=== PATIENT | female | born 1955 | race Caucasian/White ===

== ENCOUNTER 2016-10-14 11:41 | Inpatient (IN) | payer OTHER, MEDICARE ==
[~2016-10-14] VITALS: Ht 170.2 cm; Wt 93.2 kg
[~2016-10-14 11:41] MED LIST: ERGO1CAP10 PO; FLUT1SPR5 EACH NARE; FOLI1TAB4 PO; LIDO1PAD52 TOPICAL; LORA-392 PO; METF500T4 PO; METO25TA3 PO; MULT1TAB84 PO; PANT20 PO; POTA8CAP PO; RANI150C PO; ZOFR4TAB PO
[2016-10-14 11:42] VITALS: BP 120/59; PULSE 110; RESP 20; TEMP 98.3; O2SAT 100
--- NOTE | 2016-10-14 12:09 | PD ---
Physical Exam Time Seen by Provider: 12:07 Narrative 61yo F c/o vomiting since Friday morning. [place] abd pain. Reports diarrhea. Denies fever. Denies blood in stool or vomit. Patient seen in triage. Awaiting bed placement. VS reviewed. Data Data Last Documented VS Vital Signs Date Time Temp Pulse Resp B/P Pulse Ox O2 Delivery O2 Flow Rate FiO2 10/14/16 11:42 98.3 110 20 120/59 100 Room Air MDM Supervised Visit with JUVENCIO: Doris Mccauley Oct 14, 2016 12:09
--- NOTE | 2016-10-14 12:42 | PD ---
HPI Chief Complaint: GI Complaint Time Seen by Provider: 12:42 Travel History International Travel<30 days: No Contact w/Intl Traveler<30days: No Traveled to known affect area: No History of Present Illness HPI 61-year-old female with history of gastric sleeve in 2011, hereditary kidney disease, and nonalcoholic cirrhosis presents to the emergency department for evaluation nausea, vomiting, and diarrhea for the last 3 days. Patient states she cannot keep anything down. She has had no hematochezia or hematemesis. Denies any significant abdominal pain. Denies any fever but has been chilled. Denies any chest pain or tightness. Does report indigestion. Has no urinary symptoms. Does feel as though she has indigestion. She has no other symptoms to report at this time. PFSH Past Medical History Hx Anticoagulant Therapy: No Arthritis: No Autoimmune Disease: Yes Blood Disorders: No Anxiety: Yes Depression: No Heart Rhythm Problems: Yes (ELEVATED HEART RATE) Cancer: No Cardiovascular Problems: Yes (RAPID PULSE ) High Cholesterol: Yes (CURRENTLY NOT ON MEDS) Chemotherapy: No Chest Pain: Yes Congestive Heart Failure: No Cirrhosis: Yes (on liver transplant list) Cerebrovascular Accident: No Diabetes: Yes Endocrine: Yes Gastrointestinal Disorders: Yes (liver ) GERD: Yes Genitourinary: No Hepatitis: Yes (LIVER STENTS) Hiatal Hernia: No Hypertension: Yes Immune Disorder: Yes (RNA FACTOR GONE) Implanted Vascular Access Dvce: No Musculoskeletal: No Neurologic: No Psychiatric: Yes (ANXIETY) Reproductive: No Respiratory: No Immunizations Current: Yes Radiation Therapy: No Sleep Apnea: Yes (MILD) Thyroid Disease: No Ulcer: Yes (HX) Menopausal: Yes : 3 Para: 3 Past Surgical History Abdominal Surgery: Yes (GASTRIC SLEEVE 2011, UMBILICAL HERNIA) AICD: No Body Medical Devices: GASTRIC SLEEVE, LIVER STENTS? Hysterectomy: No Joint Replacement: No Oral Surgery: Yes (T&A AGE 3) Pacemaker: No Other Surgery: Yes (tonsillectomy, R foot bunion, gastric sleeve, impacted hernia, TIPS ) Social History Alcohol Use: Yes (QUIT 11/2014) Tobacco Use: No Substance Use: No Allergies-Medications (Allergen,Severity, Reaction): Coded Allergies: Latex (Verified Allergy, Severe, Wheezing, 03/12/16) Valium (Verified Allergy, Severe, MAKES PT VERY AGITATED, 03/12/16) Uncoded Allergies: LATEX (Adverse Reaction, Severe, 09/12/11) Reported Meds & Prescriptions Reported Meds & Active Scripts Active Reported Xifaxan (Rifaximin) 550 Mg Tab 550 Mg PO DAILY Januvia (Sitagliptin Phosphate) 100 Mg Tab 100 Mg PO DAILY Multi Vitamin and Mineral (Multiple Vitamins W/ Minerals) 1 Tab Tab 1 Tab PO DAILY Folic Acid 1 Mg Tablet 1 Mg PO DAILY Ergocalciferol 50,000 Unit Cap 50,000 Units PO 3 TIMES A WEEK Spironolactone 25 Mg Tab Unknown Dose PO DAILY Furosemide 20 Mg Tab Unknown Dose PO DAILY Flonase Nasal [place] (Fluticasone Nasal [place]) 50 Mcg/Act [place] 1 Spr EACH NARE DAILY Ranitidine (Ranitidine HCl) 150 Mg Cap 150 Mg PO HS Lidocaine Patch 12 HR (Lidocaine) 5 % Patch 1 Patch TOPICAL DAILY PRN Remove patch after 12 hours Ativan (Lorazepam) 0.5 Mg Tab 0.5 Mg PO Q4H PRN Zofran (Ondansetron HCl) 4 Mg Tab 4 Mg PO Q6HR PRN Potassium Chloride ER (Potassium Chloride) 8 Meq Cap 8 Meq PO DAILY Metoprolol Tartrate 25 Mg Tab 25 Mg PO BID Review of Systems Except as stated in HPI: all other systems reviewed are Neg Physical Exam Narrative GENERAL: Well-nourished female patient, in no acute distress SKIN: Focused skin assessment warm/dry. HEAD: Atraumatic. Normocephalic. EYES: Pupils equal and round. Mild scleral icterus. No injection or drainage. ENT: No nasal bleeding or discharge. Mucous membranes pink and moist. NECK: Trachea midline. No JVD. CARDIOVASCULAR: Tachycardic rate and rhythm. No murmur appreciated. RESPIRATORY: No accessory muscle use. Diminished to auscultation. Breath sounds equal bilaterally. GASTROINTESTINAL: Abdomen soft, distended. Epigastric tenderness to palpation. Mild guarding. No rebound tenderness. MUSCULOSKELETAL: No obvious deformities. No clubbing. No cyanosis. No edema. NEUROLOGICAL: Awake and alert. No obvious cranial nerve deficits. Motor grossly within normal limits. Normal speech. PSYCHIATRIC: Appropriate mood and affect; insight and judgment normal. Data Data Last Documented VS Vital Signs Date Time Temp Pulse Resp B/P Pulse Ox O2 Delivery O2 Flow Rate FiO2 10/14/16 14:29 108 20 131/56 100 Room Air 10/14/16 11:42 98.3 Orders Complete Blood Count With Diff (10/14/16 12:49) Comprehensive Metabolic Panel (10/14/16 12:49) Lipase (10/14/16 12:49) Prothrombin Time / Inr (Pt) (10/14/16 12:49) Act Partial Throm Time (Ptt) (10/14/16 12:49) Urinalysis - C+S If Indicated (10/14/16 12:49) Ct Abd/Pel W Iv Contrast(Rout) (10/14/16 12:49) Iv Access Insert/Monitor (10/14/16 12:49) Ecg Monitoring (10/14/16 12:49) Oximetry (10/14/16 12:49) Ondansetron Inj (Zofran Inj) (10/14/16 13:00) Sodium Chlor 0.9% 1000 Ml Inj (Ns 1000 M (10/14/16 12:49) Sodium Chloride 0.9% Flush (Ns Flush) (10/14/16 13:00) Electrocardiogram (10/14/16 12:49) Abdomen, Upright Only (10/14/16 12:49) Ammonia (10/14/16 12:53) Oral Contrast - Adult (10/14/16 12:56) Ranitidine Liq (Zantac Liq) (10/14/16 13:15) Ondansetron Inj (Zofran Inj) (10/14/16 13:30) Famotidine (Pepcid) (10/14/16 13:30) Diatrizoate Liq ( Gastroview Liq) (10/14/16 13:27) Urine Culture (10/14/16 14:30) Iodixanol 320 Inj (Rad Ct) (Visipaque 32 (10/14/16 15:15) Sodium Chlor 0.9% 1000 Ml Inj (Ns 1000 M (10/14/16 15:30) Labs Laboratory Tests Test 10/14/16 10/14/16 13:15 14:30 White Blood Count 10.5 TH/MM3 Red Blood Count 3.83 MIL/MM3 Hemoglobin 11.9 GM/DL Hematocrit 36.4 % Mean Corpuscular Volume 95.1 FL Mean Corpuscular Hemoglobin 31.0 PG Mean Corpuscular Hemoglobin 32.6 % Concent Red Cell Distribution Width 17.7 % Platelet Count 210 TH/MM3 Mean Platelet Volume 7.9 FL Neutrophils (%) (Auto) 81.3 % Lymphocytes (%) (Auto) 13.1 % Monocytes (%) (Auto) 5.0 % Eosinophils (%) (Auto) 0.1 % Basophils (%) (Auto) 0.5 % Neutrophils # (Auto) 8.5 TH/MM3 Lymphocytes # (Auto) 1.4 TH/MM3 Monocytes # (Auto) 0.5 TH/MM3 Eosinophils # (Auto) 0.0 TH/MM3 Basophils # (Auto) 0.1 TH/MM3 CBC Comment DIFF FINAL Differential Comment Prothrombin Time 13.4 SEC Prothromb Time International 1.2 RATIO Ratio Activated Partial 24.3 SEC Thromboplast Time Sodium Level 134 MEQ/L Potassium Level 4.5 MEQ/L Chloride Level 92 MEQ/L Carbon Dioxide Level 13.7 MEQ/L Anion Gap 28 MEQ/L Blood Urea Nitrogen 24 MG/DL Creatinine 1.57 MG/DL Random Glucose 91 MG/DL Calcium Level 9.5 MG/DL Total Bilirubin 3.8 MG/DL Aspartate Amino Transf 152 U/L (AST/SGOT) Alanine Aminotransferase 56 U/L (ALT/SGPT) Alkaline Phosphatase 188 U/L Ammonia 68 MCMOL/L Total Protein 6.4 GM/DL Albumin 3.4 GM/DL Lipase 4344 U/L Urine Color DARK-YELLOW Urine Turbidity HAZY Urine pH 5.5 Urine Specific [place] 1.019 Urine Protein 30 mg/dL Urine Glucose (UA) TRACE mg/dL Urine Ketones 10 mg/dL Urine Occult Blood SMALL Urine Nitrite NEG Urine Bilirubin SMALL Urine Urobilinogen 2.0 MG/DL Urine Leukocyte Esterase MOD Urine RBC 1 /hpf Urine WBC 18 /hpf Urine Squamous Epithelial 10 /hpf Cells Urine Transitional Epithelial 1 /hpf Cells Urine Bacteria FEW /hpf Urine Hyaline Casts 13 /lpf Urine Mucus FEW /lpf Microscopic Urinalysis Comment CULTURE INDICATED MDM Medical Decision Making Medical Screen Exam Complete: Yes Emergency Medical Condition: Yes Medical Record Reviewed: Yes Differential Diagnosis Gastroenteritis versus gastritis versus pancreatitis versus cholecystitis versus viral syndrome versus electrolyte abnormality Narrative Course 61-year-old female presents to the emergency department for evaluation of nausea , vomiting, diarrhea. Patient has epigastric tenderness to palpation. Patient is ordered Zofran which initially she refuses, requesting Zantac. I explained to the patient the Zantac will not help with her nausea but would help with the sensation of indigestion. She agrees to take the Zofran and is given a dose of Pepcid here in the emergency department. She is also given IV normal saline. Lab work is obtained. CBC is without acute concern. CMP is with BUN 24, creatinine 1.57. AST 152, ALT 56, alkaline phosphatase 158. Ammonia 60. Lipase is 4344. Urinalysis is with 30 proteinuria, 10 ketones, small occult blood, 18 WBC, few bacteria, culture is indicated. I discussed the patient with Dr. Loving who is her primary care provider. Because the patient is [employer], the patient will need to be admitted to [facility]. A call has been placed to them. Diagnosis Primary Impression: Acute pancreatitis Qualified Code: K85.90 - Acute pancreatitis, unspecified complication status, unspecified pancreatitis type Additional Impressions: Nausea & vomiting Qualified Code: R11.2 - Non-intractable vomiting with nausea, unspecified vomiting type Diarrhea Qualified Code: R19.7 - Diarrhea, unspecified type Liver disease, chronic Admitting Information Admitting Physician Requests: Admit Condition: Stable FangAileen rutherford MATI Oct 14, 2016 12:42
[2016-10-14] MEDS ORDERED: SPIR25TA PO (12:43)
[2016-10-14] MEDS ORDERED: FURO20TA PO (12:43)
[2016-10-14 12:46] VITALS: BP 155/63; PULSE 105; RESP 20; O2SAT 100
[2016-10-14] MEDS ORDERED: SODIUM CHLOR 0.9% 1000 ML INJ 1,000 ML IV SCH (12:49)
[2016-10-14] MEDS ORDERED: ERGO1CAP30 PO ×2 (12:57→15:50)
[2016-10-14] MEDS ORDERED: ONDANSETRON HCL 4 MG/2 ML VIAL IVP ONE (13:00)
[2016-10-14] MEDS ORDERED: RANITIDINE HCL SYRUP 150 MG/10 ML UDC PO ONE (13:15)
[2016-10-14] MEDS ORDERED: DIATRIZOATE MEGLUM/DIATRIZOATE SOD 9 ML CUP ONE (13:27)
[2016-10-14] MEDS ORDERED: FAMOTIDINE 20 MG TAB PO ONE (13:30)
[2016-10-14] MEDS ORDERED: ONDANSETRON HCL 4 MG/2 ML VIAL IV PUSH ONE (13:30)
[2016-10-14 13:38] LABS: AUTOMATED NEUTROPHIL # 8.5 TH/MM3 (1.8-7.7); BASOPHIL # 0.1 TH/MM3 (0-0.2); BASOPHIL % 0.5 % (0.0-2.0); EOSINOPHIL % 0.1 % (0.0-4.0); HEMATOCRIT 36.4 % (35.0-46.0); HEMO FLAGS DIFF FINAL; LYMPH % 13.1 % (9.0-44.0); LYMPHOCYTE # 1.4 TH/MM3 (1.0-4.8); MEAN CELL VOLUME 95.1 FL (80.0-100.0); MEAN CORPUSCULAR HGB CONC 32.6 % (32.0-36.0); NEUT % 81.3 % (16.0-70.0); PLATELET COUNT 210 TH/MM3 (150-450); RED BLOOD COUNT 3.83 MIL/MM3 (4.00-5.30); RED CELL DISTRIBUTION WIDTH 17.7 % (11.6-17.2); WHITE BLOOD COUNT 10.5 TH/MM3 (4.0-11.0)
[2016-10-14 13:47] LABS: APTT (PATIENT) 24.3 SEC (24.3-30.1); INTERNATIONAL NORMALIZED RATIO 1.2 RATIO; PROTHROMBIN TIME - PATIENT 13.4 SEC (9.8-11.6)
[2016-10-14 14:00] LABS: ALT (GPT) 56 U/L (10-53); ANION GAP 28 MEQ/L (5-15); AST (GOT) 152 U/L (15-37); BICARBONATE 13.7 MEQ/L (21.0-32.0); BLOOD UREA NITROGEN 24 MG/DL (7-18); CHLORIDE 92 MEQ/L (98-107); POTASSIUM 4.5 MEQ/L (3.5-5.1); SODIUM (NA) 134 MEQ/L (136-145)
--- NOTE | 2016-10-14 14:01 | RADRPT ---
EXAM DATE/TIME: 10/14/2016 13:39 [facility] COMPARISON: No previous studies available for comparison. INDICATIONS : Vomiting since Friday. MEDICAL HISTORY : Gastroesophageal reflux disease. Cirrhosis. Diabetes mellitus type II. Umbilical hernia. SURGICAL HISTORY : Gastric sleeve. TIPS. Liver stents. ENCOUNTER: Initial ACUITY: 3 days PAIN SCORE: 0/10 LOCATION: Bilateral abdomen. FINDINGS: There is no evidence of pneumoperitoneum. A TIPS stent is seen in the right upper quadrant. There is a paucity of intestinal gas with no definite dilated bowel loops. No suspicious calcifications seen. CONCLUSION: No evidence of pneumoperitoneum Jeremy Carter MD on October 14, 2016 at 13:57 Board Certified Radiologist. This report was verified electronically.
[2016-10-14 14:03] LABS: ALKALINE PHOSPHATASE 188 U/L (45-117); TOTAL BILIRUBIN ADULT 3.8 MG/DL (0.2-1.0)
[2016-10-14 14:29] VITALS: BP 131/56; PULSE 108; RESP 20; O2SAT 100
[2016-10-14 15:07] LABS: BACTERIA, URINE FEW /hpf; BLOOD, URINE SMALL (NEG); COMMENT (UR) CULTURE INDICATED; CULTURE IF INDICATED CULTURE INDICATED; GLUCOSE,URINE TRACE mg/dL (NEG); HYALINE CAST, URINE 13 /lpf (RARE); KETONE, URINE 10 mg/dL (NEG); MUCUS URINE FEW /lpf (OCC); NITRITE,URINE NEG (NEG); PH, URINE 5.5 (5.0-8.5); SQUAMOUS EPITHELIAL CELL URINE 10 /hpf (0-5); TRANSITIONAL EPI CELLS, URINE 1 /hpf; URINE COLOR DARK-YELLOW (YELLW/STRAW)
[2016-10-14] MEDS ORDERED: IODIXANOL 320 MG/ML 10 ML VIAL (for Rad CT) IV ONE (15:15)
[2016-10-14] MEDS ORDERED: SODIUM CHLOR 0.9% 1000 ML INJ 1,000 ML IV ONE (15:30)
--- NOTE | 2016-10-14 15:30 | RADRPT ---
EXAM DATE/TIME: 10/14/2016 15:06 [facility] COMPARISON: CT ABDOMEN & PELVIS W/O CONTRAST, August 11, 2015, 21:58. INDICATIONS : Abdomen pain. IV CONTRAST: 50 cc Visipaque (iodixanol) IV ORAL CONTRAST: No oral contrast ingested. RADIATION DOSE: 13.96 CTDIvol (mGy) MEDICAL HISTORY : Cirrhosis. gall stones SURGICAL HISTORY : Hernia ENCOUNTER: Initial ACUITY: 1 day PAIN SCALE: 2/10 LOCATION: Bilateral abdomen. TECHNIQUE: Volumetric scanning of the abdomen and pelvis was performed. Using automated exposure control and ad justment of the mA and/or kV according to patient size, radiation dose was kept as low as reasonably achievable to obtain optimal diagnostic quality images. DICOM format image data is available electro nically for review and comparison. FINDINGS: LOWER LUNGS: The visualized lower lungs are clear. LIVER: Liver demonstrates severe diffuse low-density secondary to steatosis. There are a few calcified stone s in the gallbladder. TIPS extends from the main portal vein to the middle hepatic vein. No focal sarika er lesion is identified. There is no dilation of the biliary tree. SPLEEN: Normal size without lesion. PANCREAS: There is a mild degree of induration of the fat surrounding the pancreas. Main pancreatic duct is nor mal in size and no mass is visualized. KIDNEYS: Normal in size and shape. There is no mass, stone or hydronephrosis. There is a 10 mm low density le demi in the left mid kidney and a 16mm low density lesion in the right mid kidney. Density measuremen ts favor cysts. These are present on the prior examination. ADRENAL GLANDS: Within normal limits. VASCULAR: There is no aortic aneurysm. There is mild atherosclerotic disease. BOWEL/MESENTERY: Small hiatal hernia is present. There is a staple line along the greater curvature of the stomach. Sm all bowel and colon demonstrate no acute finding. There is mild sigmoid diverticulosis. There is no f ree air or free fluid. Appendix is normal. ABDOMINAL WALL: Within normal limits. RETROPERITONEUM: There is no lymphadenopathy. BLADDER: No wall thickening or mass. REPRODUCTIVE: Within normal limits. INGUINAL: There is no lymphadenopathy or hernia. MUSCULOSKELETAL: There are degenerative changes of the lumbar spine consisting primarily of facet arthrosis. There is 6 mm of anterolisthesis of L4 on L5. CONCLUSION: 1. Mild induration of the fat surrounding the pancreas suggesting mild inflammation. This could repre sent an acute pancreatitis. Suggest correlation with the appropriate laboratory values. 2. Severe hepatic steatosis. TIPS device is present. 3. Cholelithiasis. Jeremy Martin MD on October 14, 2016 at 15:22 Board Certified Radiologist. This report was verified electronically.
[2016-10-14] MEDS ORDERED: MULT-142 PO (15:50)
[2016-10-14] MEDS ORDERED: FOLI1TAB6 PO (15:50)
[2016-10-14] MEDS ORDERED: XIFA550T4 PO (15:52)
[2016-10-14] MEDS ORDERED: SITA1TAB2 PO (15:52)
--- NOTE | 2016-10-14 17:55 | HHI.HP ---
[facility] Tate Loving MD Admission Diagnosis acute pancreatitis; transaminitis; nausea, vomiting, diarrhea Diagnoses: Chief Complaint: Persistent nausea Travel History International Travel<30 Days: No Contact w/Intl Traveler <30 Da: No Traveled to Known Affected Are: No Sepsis Criteria SIRS Criteria (2 or more): Heart rate over 90, RR > 20 or PaCO2 < 32, WBC > 25357, < 4000 or > 10% bands Criteria Outcome: Meets SIRS criteria History of Present Illness Patient is a very pleasant 61-year-old female with history of liver cirrhosis who about a week prior to admission had a drink of vodka. 3-4 days prior to admission patient started complaining of increased nausea and vomiting unable to hold down anything associated with loose stools around 3-4 times per day. Persistence prompted consult to ER and on evaluation was noted to have an elevated lipase and patient was admitted for further evaluation and management. Patient with history of SEAY ff by Dr. Germain at one point was on the transplant list but was taken off as she had improved a lot. States history of anxiety disorder and depression. denies any suicidal ideations Review of Systems Constitutional: COMPLAINS OF: Diaphoretic episodes Endocrine: DENIES: Abnorml menstrual pattern, Heat/cold intolerance, Polydipsia , Polyuria, Polyphagia Eyes: DENIES: Blurred vision, Diplopia, Eye inflammation, Eye pain, Vision loss , Photosensitivity, Double Vision Ears, nose, mouth, throat: DENIES: Tinnitus, Hearing loss, Vertigo, Nasal discharge, Oral lesions, Throat pain, Hoarseness, Ear Pain, Running Nose, Epistaxis, Sinus Pain, Toothache, Odynophagia Respiratory: DENIES: Apneas, Cough, Snoring, Wheezing, Hemoptysis, Sputum production, Shortness of breath Cardiovascular: DENIES: Chest pain, Palpitations, Syncope, Dyspnea on Exertion , PND, Lower Extremity Edema, Orthopnea, Claudication Gastrointestinal: COMPLAINS OF: Abdominal pain Genitourinary: DENIES: Abnormal vaginal bleeding, Dysmenorrhea, Dyspareunia, Sexual dysfunction, Urinary frequency, Urinary incontinence, Urgency, Hematuria , Dysuria, Nocturia, Vaginal discharge Musculoskeletal: DENIES: Joint pain, Muscle aches, Stiffness, Joint Swelling, Back pain, Neck pain Integumentary: DENIES: Abnormal pigmentation, Pruritus, Rash, Nail changes, Breast masses, Breast skin changes, Nipple discharge Hematologic/lymphatic: DENIES: Bruising, Lymphadenopathy Immunologic/allergic: DENIES: Eczema, Urticaria Neurologic: DENIES: Abnormal gait, Headache, Localized weakness, Paresthesias, Seizures, Speech Problems, Tremor, Poor Balance Psychiatric: DENIES: Anxiety, Confusion, Mood changes, Depression, Hallucinations, Agitation, Suicidal Ideation, Homicidal Ideation, Delusions Past Family Social History Past Medical History History of Type 2 diabetes History of tachycardia Past Surgical History [place]astric [place] FollowedbyaGIspecialist- Dr. Germain history of repeated paracentesis in the past - DC sice TIPs done Reported Medications Zofran 4 mg by mouth every 6 Rifaximin 550 mg daily Lidoderm patch every 12 Ativan 0.5 mg every 6 when necessary Vitamin C, vitamin D Lasix 20 mg daily SpironolaCTONE 25 mg daily Allergies: Coded Allergies: Latex (Verified Allergy, Severe, Wheezing, 03/12/16) Valium (Verified Allergy, Severe, MAKES PT VERY AGITATED, 03/12/16) Uncoded Allergies: LATEX (Adverse Reaction, Severe, 09/12/11) Family History Noncontributory Social History Gastric sleeve surgery next line umbilical hernia surgery Tip surgery last year at [facility] per patient within a year Physical Exam Vital Signs Vital Signs Date Time Temp Pulse Resp B/P Pulse Ox O2 Delivery O2 Flow Rate FiO2 10/14/16 14:29 108 20 131/56 100 Room Air 10/14/16 12:46 105 20 155/63 100 Room Air 10/14/16 11:42 98.3 110 20 120/59 100 Room Air Physical Exam GENERAL: Awake alert in no apparent distress. SKIN: No rashes, ecchymoses or lesions. Cool and dry. HEAD: Atraumatic. Normocephalic. No temporal or scalp tenderness. EYES: Pupils equal round and reactive. Extraocular motions intact. No scleral icterus. No injection or drainage. ENT: Nose without bleeding, purulent drainage or septal hematoma. Throat without erythema, tonsillar hypertrophy or exudate. Uvula midline. Airway patent. NECK: Trachea midline. No JVD or lymphadenopathy. Supple, nontender, no meningeal signs. CARDIOVASCULAR: Heart rate 10 2/m, regular rhythm without murmurs, gallops, or rubs. RESPIRATORY: Clear to auscultation. Breath sounds equal bilaterally. No wheezes , rales, or rhonchi. GASTROINTESTINAL: Abdomen soft, positive right upper quadrant and epigastric tenderness, liver edge palpable 2 cm below right upper quadrant MUSCULOSKELETAL: Extremities without clubbing, cyanosis, or edema. No joint tenderness, effusion, or edema noted. No calf tenderness. Negative Homans sign bilaterally. NEUROLOGICAL: Awake and alert. Cranial nerves II through XII intact. Motor and sensory grossly within normal limits. Five out of 5 muscle strength in all muscle groups. Normal speech. Laboratory Laboratory Tests Test 10/14/16 10/14/16 13:15 14:30 White Blood Count 10.5 Red Blood Count 3.83 Hemoglobin 11.9 Hematocrit 36.4 Mean Corpuscular Volume 95.1 Mean Corpuscular Hemoglobin 31.0 Mean Corpuscular Hemoglobin 32.6 Concent Red Cell Distribution Width 17.7 Platelet Count 210 Mean Platelet Volume 7.9 Neutrophils (%) (Auto) 81.3 Lymphocytes (%) (Auto) 13.1 Monocytes (%) (Auto) 5.0 Eosinophils (%) (Auto) 0.1 Basophils (%) (Auto) 0.5 Neutrophils # (Auto) 8.5 Lymphocytes # (Auto) 1.4 Monocytes # (Auto) 0.5 Eosinophils # (Auto) 0.0 Basophils # (Auto) 0.1 CBC Comment DIFF FINAL Differential Comment Prothrombin Time 13.4 Prothromb Time International 1.2 Ratio Activated Partial 24.3 Thromboplast Time Sodium Level 134 Potassium Level 4.5 Chloride Level 92 Carbon Dioxide Level 13.7 Anion Gap 28 Blood Urea Nitrogen 24 Creatinine 1.57 Random Glucose 91 Calcium Level 9.5 Total Bilirubin 3.8 Aspartate Amino Transf 152 (AST/SGOT) Alanine Aminotransferase 56 (ALT/SGPT) Alkaline Phosphatase 188 Ammonia 68 Total Protein 6.4 Albumin 3.4 Lipase 4344 Urine Color DARK-YELLOW Urine Turbidity HAZY Urine pH 5.5 Urine Specific [place] 1.019 Urine Protein 30 Urine Glucose (UA) TRACE Urine Ketones 10 Urine Occult Blood SMALL Urine Nitrite NEG Urine Bilirubin SMALL Urine Urobilinogen 2.0 Urine Leukocyte Esterase MOD Urine RBC 1 Urine WBC 18 Urine Squamous Epithelial 10 Cells Urine Transitional Epithelial 1 Cells Urine Bacteria FEW Urine Hyaline Casts 13 Urine Mucus FEW Microscopic Urinalysis Comment CULTURE INDICATED Date/Time Procedure Status Source Growth 10/14/16 14:30 Urine Culture Received Urine Random Urine Pending Result Diagram: 10/14/16 1315 10/14/16 1315 Imaging Last Impressions Abdomen/Pelvis CT 10/14/16 1249 Signed Impressions: Service Date/Time: Friday, October 14, 2016 15:06 - CONCLUSION: 1. Mild induration of the fat surrounding the pancreas suggesting mild inflammation. This could represent an acute pancreatitis. Suggest correlation with the appropriate laboratory values. 2. Severe hepatic steatosis. TIPS device is present. 3. Cholelithiasis. Jeremy Martin MD Abdomen X-Ray 10/14/16 1249 Signed Impressions: Service Date/Time: Friday, October 14, 2016 13:39 - CONCLUSION: No evidence of pneumoperitoneum Jeremy Carter MD Septic Shock Reassessment Heart: Regular rate and rhythm Lungs: Clear Skin: Warm Peripheral Pulses: Bounding Right Radial Bounding Left Radial Bounding Right Popliteal Bounding Left Popliteal Bounding Right Dorsalis Pedis Bounding Left Dorsalis Pedis Bounding Right Posterior Tibial Bounding Left Posterior Tibial Capillary Refill: Brisk Assessment and Plan Assessment and Plan 58-year-old female presenting with nausea and vomiting persistent on exam with Acute pancreatitis. - Likely alcohol related Patient with history of alcoholism. Patient states had been thin but he did she think she did admit that she had 2-3 glasses of vodka 5 days ago. Nothing by mouth with sips of water Zofran 4 mg IV every 6 when necessary. Protonix IV will monitor for DTs- I suspect she drinks more than she states History of tachycardia- questionably idiopathic. ? anxiety disorder Continue on metoprolol home dose. History of liver cirrhosis- status post TIPS procedure. In the past had required periodic paracentesis. Not in any form of encephalopathy. Chronic kidney insufficiency creatinine near baseline. Will hold off on diuretics. Gentle hydration. Urinary tract infection positive pyuria. [employer] SU[employer]OR was sent. Start patient on Levaquin IV daily teds Code Status Full Discussed Condition With Patient Physician Certification 2 Midnight Certification Type: Admission for Inpatient Services Order for Inpatient Services The services are ordered in accordance with Medicare regulations or non- Medicare payer requirements, as applicable. In the case of services not specified as inpatient-only, they are appropriately provided as inpatient services in accordance with the 2-midnight benchmark. Estimated LOS (days): 3 days is the estimated time the patient will need to remain in the hospital, assuming treatment plan goals are met and no additional complications. Post-Hospital Plan: Not yet determined Carri Cancino MD Oct 14, 2016 17:55
[2016-10-14] MEDS ORDERED: ONDANSETRON HCL 4 MG/2 ML VIAL IV PUSH PRN (18:00)
[2016-10-14] MEDS ORDERED: LEVOFLOXACIN 500 MG PREMIX INJ 100 ML IV SCH (18:00)
[2016-10-14 18:32] LABS: AMPHETAMINE, URINE NEG (NEG); BARBITURATES, URINE NEG (NEG); COCAINE, URINE NEG (NEG)
[2016-10-14 18:42] VITALS: BP 122/58; PULSE 106; RESP 18; TEMP 96.2; O2SAT 100
[2016-10-14] MEDS ORDERED: REMOVE OLD LIDOCAINE PATCH T-DERMAL PRN (19:15)
[2016-10-14 20:00] VITALS: BP 131/58; PULSE 96; RESP 19; TEMP 97.3; O2SAT 94
[2016-10-14] MEDS ORDERED: LEVOFLOXACIN 500 MG PREMIX INJ 100 ML IV ONE (20:00)
[2016-10-14] MEDS: METOPROLOL TARTRATE 25 MG TAB PO SCH (20:56)
[2016-10-14] MEDS: PANTOPRAZOLE SODIUM 40 MG VIAL IV PUSH SCH (20:56)
[2016-10-14] MEDS: HYDROmorphone HCL PF 1 MG/ML VIAL IV PUSH PRN (21:03)
[2016-10-14] MEDS: DEXT 5%-NACL 0.9% 1000 ML INJ 1,000 ML IV SCH (21:06)
[2016-10-14] MEDS: LIDOCAINE HCL 5% PATCH T-DERMAL PRN (21:30)
[2016-10-15] VITALS: BP_SYST 126; BP_SYST 138; BP_DIAS 61; BP_DIAS 92; PULSE 73; PULSE 76; RESP 19; RESP 20; TEMP 98.3; O2SAT 98
[2016-10-15] MEDS: HYDROmorphone HCL PF 1 MG/ML VIAL IV PUSH PRN ×4 (01:23→21:19)
[2016-10-15] MEDS: METOCLOPRAMIDE HCL 10 MG/2 ML VIAL IV PUSH PRN ×2 (02:05→10:20)
[2016-10-15 08:00] VITALS: BP 123/55; PULSE 80; RESP 18; TEMP 96; O2SAT 94
--- NOTE | 2016-10-15 08:43 | HHI.PR ---
Subjective Remarks feels better - but did not get sleep last night feels better - appears more tremulous this am - I thinks she drinks more than she states- but got a little up set when ask ? denial states anxiety disorder on prn Ativan diarrhea - "stopped" Objective Vitals Vital Signs Date Time Temp Pulse Resp B/P Pulse Ox O2 Delivery O2 Flow Rate FiO2 10/15/16 00:00 98.3 73 19 126/61 98 10/14/16 20:00 97.3 96 19 131/58 94 10/14/16 18:42 96.2 106 18 122/58 100 10/14/16 14:29 108 20 131/56 100 Room Air 10/14/16 12:46 105 20 155/63 100 Room Air 10/14/16 11:42 98.3 110 20 120/59 100 Room Air I/O 10/14/16 10/14/16 10/14/16 10/15/16 10/15/16 10/15/16 07:00 15:00 23:00 07:00 15:00 23:00 Intake Total 194 ml 839 ml Output Total 300 ml Balance 194 ml 539 ml Intake Oral 0 ml 0 ml IV Total 194 ml 839 ml Output Urine Total 300 ml # Voids 1 3 2 # Bowel Movements 1 0 Result Diagram: 10/14/16 1315 10/14/16 1315 Imaging Last Impressions Abdomen/Pelvis CT 10/14/16 1249 Signed Impressions: Service Date/Time: Friday, October 14, 2016 15:06 - CONCLUSION: 1. Mild induration of the fat surrounding the pancreas suggesting mild inflammation. This could represent an acute pancreatitis. Suggest correlation with the appropriate laboratory values. 2. Severe hepatic steatosis. TIPS device is present. 3. Cholelithiasis. Jeremy Martin MD Abdomen X-Ray 10/14/16 1249 Signed Impressions: Service Date/Time: Friday, October 14, 2016 13:39 - CONCLUSION: No evidence of pneumoperitoneum Jeremy Carter MD Objective Remarks awake and alert, appears more anxious and tremulous anicteric no nuchal rigidity decreased breath sounds, no rales or wheezes abdomen- soft, + tenderness on epigastric area, extremities no edema A/P Assessment and Plan 58-year-old female presenting with nausea and vomiting persistent on exam with Acute pancreatitis. - Likely alcohol related Patient with history of alcoholism. Patient states had been thin but he did she think she did admit that she had 2-3 glasses of vodka 5 days ago. Nothing by mouth with sips of water Zofran 4 mg IV every 6 when necessary. Protonix IV repeat labs this am GI consult - known to Dr. Germain ETOH withdrawal start on CIWA protocol states she takes Ativan prn for anxiety. On record- - with Valium- gives her the opposite effect- makes her more agitated per patient History of tachycardia- questionably idiopathic. Continue on metoprolol home dose. History of liver cirrhosis- status post TIPS procedure. In the past had required periodic paracentesis. Not in any form of encephalopathy.. monitor Chronic kidney insufficiency creatinine near baseline. Will hold off on diuretics. Gentle hydration. repeat labs Urinary tract infection positive pyuria. 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 Start patient on Levaquin IV daily Carri Perez MD Oct 15, 2016 08:43
[2016-10-15 08:58] LABS: ALKALINE PHOSPHATASE 131 U/L (45-117); ALT (GPT) 48 U/L (10-53); ANION GAP 12 MEQ/L (5-15); AST (GOT) 109 U/L (15-37); BICARBONATE 25.9 MEQ/L (21.0-32.0); BLOOD UREA NITROGEN 30 MG/DL (7-18); CHLORIDE 99 MEQ/L (98-107); GLOMERULAR FILTRATION RATE 34 ML/MIN (>89); POTASSIUM 3.7 MEQ/L (3.5-5.1); SODIUM (NA) 137 MEQ/L (136-145); TOTAL BILIRUBIN ADULT 2.9 MG/DL (0.2-1.0)
[2016-10-15] MEDS: FOLIC ACID 1 MG TAB PO SCH (09:06)
[2016-10-15] MEDS: METOPROLOL TARTRATE 25 MG TAB PO SCH ×2 (09:06→21:18)
[2016-10-15] MEDS: ERGOCALCIFEROL (VIT D2) 50,000 UNIT CAP PO SCH (09:06)
[2016-10-15] MEDS ORDERED: LORazepam 1 MG TAB PO PRN (09:15)
[2016-10-15] MEDS ORDERED: LORazepam 2 MG/ML VIAL IV PUSH PRN ×4 (09:15)
[2016-10-15] MEDS ORDERED: LORazepam 2 MG TAB PO PRN (09:15)
[2016-10-15] MEDS ORDERED: FLUMAZENIL 0.5 MG/5 ML VIAL IV PUSH PRN (09:15)
[2016-10-15] MEDS: LIDOCAINE HCL 5% PATCH T-DERMAL PRN (09:18)
[2016-10-15 12:00] VITALS: BP 98/57; PULSE 78; RESP 17; TEMP 97; O2SAT 98
[2016-10-15] MEDS: DEXT 5%-NACL 0.9% 1000 ML INJ 1,000 ML IV SCH ×2 (13:07→23:17)
--- NOTE | 2016-10-15 15:19 | PD.CONS ---
HPI History of Present Illness This is a 61 year old lady with hx SEAY, TIPS, who presented to ER with n/v. Onset was 4 days ago, constant n/v and weakness. She was found to have elevated lipase 5530. She had been fasting for an abd US and had her first meal the the n /v started a couple bites into a sandwich. No abd pain. She did have diarrhea for a couple days but that resolved. No prior hx pancreatitis. She was pursuing liver transplatn at [facility] but improved with lifestyle mods to the point she was removed from the program, says her MELD went from 18 to 7. Currently her vomiting is improved some since admission but she still is nauseous. She sees DR Germain, has had extensive w/u. She denies ETOH in the last year but on admission her blood ETOH was 48. PFSH Past Medical History SEAY stage 4 (2014). History of Type 2 diabetes History of tachycardia Past Surgical History [place] FollowedbyaGIspecialist- Dr. Germain history of repeated paracentesis in the past - DC sice TIPs done Coded Allergies: Latex (Verified Allergy, Severe, Wheezing, 03/12/16) Valium (Verified Allergy, Severe, MAKES PT VERY AGITATED, 03/12/16) Uncoded Allergies: LATEX (Adverse Reaction, Severe, 09/12/11) Family History recurrent pancreatitis - mother Social History Gastric sleeve surgery next line umbilical hernia surgery Tip surgery last year at [facility] per patient within a year Review of Systems Constitutional: DENIES: Fever Eyes: DENIES: Blurred vision Ears, nose, mouth, throat: DENIES: Hearing loss Respiratory: DENIES: Cough Cardiovascular: DENIES: Chest pain Gastrointestinal: COMPLAINS OF: Nausea, Vomiting, DENIES: Abdominal pain, Black stools, Bloody stools, Constipation, Diarrhea, Swelling of Abdomen, Hematemesis Genitourinary: DENIES: Hematuria Musculoskeletal: DENIES: Muscle aches Integumentary: DENIES: Pruritus, Jaundice Hematologic/lymphatic: DENIES: Bruising Neurologic: DENIES: Headache Psychiatric: DENIES: Confusion GI Exam Vitals I&O Vital Signs Date Time Temp Pulse Resp B/P Pulse Ox O2 Delivery O2 Flow Rate FiO2 10/15/16 12:00 97.0 78 17 98/57 98 10/15/16 08:00 96.0 80 18 123/55 94 10/15/16 00:00 98.3 73 19 126/61 98 10/14/16 20:00 97.3 96 19 131/58 94 10/14/16 18:42 96.2 106 18 122/58 100 I/O 10/14/16 10/14/16 10/14/16 10/15/16 10/15/16 10/15/16 07:00 15:00 23:00 07:00 15:00 23:00 Intake Total 194 ml 839 ml 0 ml Output Total 300 ml Balance 194 ml 539 ml 0 ml Intake Oral 0 ml 0 ml 0 ml IV Total 194 ml 839 ml Output Urine Total 300 ml # Voids 1 3 2 5 # Bowel Movements 1 0 0 Imaging Last Impressions Abdomen/Pelvis CT 10/14/16 1249 Signed Impressions: Service Date/Time: Friday, October 14, 2016 15:06 - CONCLUSION: 1. Mild induration of the fat surrounding the pancreas suggesting mild inflammation. This could represent an acute pancreatitis. Suggest correlation with the appropriate laboratory values. 2. Severe hepatic steatosis. TIPS device is present. 3. Cholelithiasis. Jeremy Martin MD Abdomen X-Ray 10/14/16 1249 Signed Impressions: Service Date/Time: Friday, October 14, 2016 13:39 - CONCLUSION: No evidence of pneumoperitoneum Jeremy Carter MD Laboratory Test 10/15/16 08:09 Sodium Level 137 MEQ/L Potassium Level 3.7 MEQ/L Chloride Level 99 MEQ/L Carbon Dioxide Level 25.9 MEQ/L Anion Gap 12 MEQ/L Blood Urea Nitrogen 30 MG/DL Creatinine 1.55 MG/DL Estimat Glomerular Filtration 34 ML/MIN Rate Random Glucose 137 MG/DL Calcium Level 8.0 MG/DL Total Bilirubin 2.9 MG/DL Aspartate Amino Transf 109 U/L (AST/SGOT) Alanine Aminotransferase 48 U/L (ALT/SGPT) Alkaline Phosphatase 131 U/L Total Protein 5.1 GM/DL Albumin 2.7 GM/DL Lipase 5530 U/L Date/Time Procedure Status Source Growth 10/14/16 14:30 Urine Culture - Final Complete Urine Random Urine 50-100,000 CFU/ML MIXED WENDI... Physical Examination HEENT: PERRL; normocephalic; atraumatic; no jaundice. CHEST: CTA CARDIAC: RRR ABDOMEN: Soft, nondistended, nontender; no hepatosplenomegaly; bowel sounds are present in all four quadrants. EXTREMITIES: No clubbing, cyanosis, edema right leg > left leg SKIN: Normal; no rash; no jaundice. DOUGH SCALER AND MIXER: No focal deficits; alert and oriented times three. Assessment and Plan Plan ASSESSMENT - acute pancreatitis - lipase on admission 4344, up to 5530. CT 10-14-16 --> . Mild induration of the fat surrounding the pancreas suggesting mild inflammation. This could represent an acute pancreatitis. Suggest correlation with the appropriate laboratory values. 2. Severe hepatic steatosis. TIPS device is present. 3. Cholelithiasis. Pt denies drinking in last year, prior was heavy drinker, but her blood ETOH on admission was 48. - elevated LFTs - - SEAY - ?cirrhosis. MELD 17. CT as above. s/p TIPS. EGD 2015 showed gastritis , duodenitis, no varices. PLAN - MRCP - IGG4 - monitor LFTs - supportive care - IVF - further recommendations to follow This pt seen by myself and Dr Villaseñor and this note is written on his behalf Aishwarya Huynh Oct 15, 2016 15:19
[2016-10-15 16:00] VITALS: BP 112/57; PULSE 78; RESP 18; TEMP 97.9; O2SAT 96
--- NOTE | 2016-10-15 17:10 | EKG ---
Date Performed: 10/14/2016 Time Performed: 12:58:19 PTAGE: 61 years EKG: SINUS TACHYCARDIA PREVIOUS TRACING 12/12/2015 08.16.46 DOCTOR: Og Lai Interpretating Date/Time 10/15/2016 17:09:14
[2016-10-15 20:00] VITALS: BP 113/55; PULSE 80; RESP 20; TEMP 97.9; O2SAT 98
[2016-10-15] MEDS: LEVOFLOXACIN/DEXTROSE 250 MG/50 ML IV SCH (21:18)
[2016-10-15] MEDS: RIFAXIMIN 550 MG TAB PO SCH (21:18)
[2016-10-15] MEDS: PANTOPRAZOLE SODIUM 40 MG VIAL IV PUSH SCH (21:25)
[2016-10-16] VITALS: BP 101/53; PULSE 71; RESP 20; TEMP 97.3; O2SAT 96
[2016-10-16] MEDS: HYDROmorphone HCL PF 1 MG/ML VIAL IV PUSH PRN (05:23)
[2016-10-16] MEDS: METOCLOPRAMIDE HCL 10 MG/2 ML VIAL IV PUSH PRN (05:24)
[2016-10-16 06:35] LABS: INDIRECT BILIRUBIN 0.6 MG/DL (0.0-0.8); TOTAL BILIRUBIN ADULT 2.3 MG/DL (0.2-1.0)
[2016-10-16 08:00] VITALS: BP 118/56; PULSE 79; RESP 17; TEMP 96.4; O2SAT 97
[2016-10-16] MEDS: ERGOCALCIFEROL (VIT D2) 50,000 UNIT CAP PO SCH (08:06)
[2016-10-16] MEDS: METOPROLOL TARTRATE 25 MG TAB PO SCH ×2 (08:07→20:12)
[2016-10-16] MEDS: RIFAXIMIN 550 MG TAB PO SCH ×2 (08:07→20:12)
[2016-10-16] MEDS: FOLIC ACID 1 MG TAB PO SCH (08:07)
[2016-10-16] MEDS: DEXT 5%-NACL 0.9% 1000 ML INJ 1,000 ML IV SCH ×2 (08:14→17:26)
--- NOTE | 2016-10-16 08:33 | HHI.PR ---
Subjective Remarks patient appears more calm, less tremulous occasional nausea, no vomiting still with epigastric discomfort no diarrhea- "stopped" Objective Vitals Vital Signs Date Time Temp Pulse Resp B/P Pulse Ox O2 Delivery O2 Flow Rate FiO2 10/16/16 00:00 97.3 71 20 101/53 96 10/15/16 20:00 97.9 80 20 113/55 98 10/15/16 16:00 97.9 78 18 112/57 96 10/15/16 12:00 97.0 78 17 98/57 98 I/O 10/15/16 10/15/16 10/15/16 10/16/16 10/16/16 10/16/16 06:59 14:59 22:59 06:59 14:59 22:59 Intake Total 839 ml 0 ml 598 ml 688 ml Output Total 300 ml Balance 539 ml 0 ml 598 ml 688 ml Intake Oral 0 ml 0 ml 0 ml 0 ml IV Total 839 ml 598 ml 688 ml Output Urine Total 300 ml # Voids 2 5 2 3 # Bowel Movements 0 0 0 0 Result Diagram: 10/14/16 1315 10/15/16 0809 Imaging Last Impressions Abdomen/Pelvis CT 10/14/16 1249 Signed Impressions: Service Date/Time: Friday, October 14, 2016 15:06 - CONCLUSION: 1. Mild induration of the fat surrounding the pancreas suggesting mild inflammation. This could represent an acute pancreatitis. Suggest correlation with the appropriate laboratory values. 2. Severe hepatic steatosis. TIPS device is present. 3. Cholelithiasis. Jeremy Martin MD Abdomen X-Ray 10/14/16 1249 Signed Impressions: Service Date/Time: Friday, October 14, 2016 13:39 - CONCLUSION: No evidence of pneumoperitoneum Jeremy Carter MD Objective Remarks awake and alert, calmer, less tremulous, anicteric no nuchal rigidity decreased breath sounds, no rales or wheezes abdomen- soft, + mild tenderness on deep palpation fo epigastric area, extremities no edema A/P Assessment and Plan 58-year-old female presenting with nausea and vomiting persistent on exam with Acute pancreatitis. - Likely alcohol related Patient with history of alcoholism. Patient states had been thin but he did she think she did admit that she had 2-3 glasses of vodka 5 days ago. Nothing by mouth with sips of water Zofran 4 mg IV every 6 when necessary. Protonix IV GI consulted - for MRCP recheck lipase level ETOH withdrawal start on CIWA protocol states she takes Ativan prn for anxiety. On record- - with Valium- gives her the opposite effect- makes her more agitated per patient History of tachycardia- questionably idiopathic.- better controlled Continue on metoprolol home dose. History of liver cirrhosis- status post TIPS procedure. In the past had required periodic paracentesis. Not in any form of encephalopathy.. monitor Chronic kidney insufficiency creatinine near baseline. Will hold off on diuretics. Gentle hydration. ff labs- BMP Urinary tract infection - positive pyuria. on Levaquin IV daily teds/patient up and ambulating Carri Cancino MD Oct 16, 2016 08:33
[2016-10-16] MEDS ORDERED: LORazepam 2 MG/ML VIAL IV PUSH ONE (08:45)
[2016-10-16] MEDS: LIDOCAINE HCL 5% PATCH T-DERMAL PRN (09:05)
[2016-10-16 12:00] VITALS: BP 123/58; PULSE 73; RESP 16; TEMP 96.5; O2SAT 100
[2016-10-16 16:00] VITALS: BP 131/64; PULSE 75; RESP 16; TEMP 98.1; O2SAT 99
[2016-10-16 20:00] VITALS: BP 131/60; PULSE 81; RESP 20; TEMP 98.6; O2SAT 99
[2016-10-16] MEDS: LEVOFLOXACIN/DEXTROSE 250 MG/50 ML IV SCH (20:12)
[2016-10-16] MEDS: PANTOPRAZOLE SODIUM 40 MG VIAL IV PUSH SCH (20:13)
--- NOTE | 2016-10-16 21:45 | RADRPT ---
EXAM DATE/TIME: 10/16/2016 20:50 [facility] COMPARISON: US ABDOMEN - COMPLETE, December 01, 2015, 9:57. CT ABDOMEN & PELVIS W CONTRAST, October 14, 2016, 15:06. INDICATIONS : Abdominal pain. Cirrhosis and cholelithiasis. MEDICAL HISTORY : Cirrhosis Diabetes mellitus type 2. SURGICAL HISTORY : Umbilical hernia repair. TIPS procedure. Gastric sleeve. ENCOUNTER: Subsequent ACUITY: 2 day PAIN SCORE: 0/10 LOCATION: abdomen TECHNIQUE: Multiplanar, multisequence magnetic resonance imaging of the abdomen was performed. High-resolution 3D dataset was utilized to reconstruct maximum-intensity projection (MIP) images. FINDINGS: INTRAHEPATIC BILE DUCTS: Within normal limits. No significant anatomical variant is present. A TIPS device is noted extending from the main portal vein to the middle hepatic vein. EXTRAHEPATIC BILE DUCTS: The common bile duct measures 5 mm No stone or filling defect is identified. GALLBLADDER: No stones, wall thickening, or pericholecystic fluid. The gallbladder is contracted in appearance. LIVER: Normal size and signal intensity. No concerning liver lesion is identified on this non-contrast exam. There is diffuse hepatic steatosis. PANCREAS: The main pancreatic duct is normal in size. There is no significant anatomical variant. Signal inte nsity is within normal limits. No mass is visualized on this non-contrast exam. OTHER: The remaining visualized structures demonstrate no acute abnormality on this non-contrast exam. There are small cysts in the right kidney. A small hiatal hernia is noted. CONCLUSION: 1. The gallbladder is small size with no distinct gallstones identified. 2. Hepatic steatosis with TIPS catheter in place. 3. No evidence of biliary obstruction. Kota Rushing MD on October 16, 2016 at 21:37 Board Certified Radiologist. This report was verified electronically.
[2016-10-17] VITALS: BP 106/52; PULSE 88; RESP 20; TEMP 98.8; O2SAT 97
[2016-10-17] MEDS: DEXT 5%-NACL 0.9% 1000 ML INJ 1,000 ML IV SCH (05:00)
[2016-10-17 06:59] LABS: ALKALINE PHOSPHATASE 124 U/L (45-117); ALT (GPT) 55 U/L (10-53); ANION GAP 8 MEQ/L (5-15); AST (GOT) 133 U/L (15-37); BICARBONATE 26.8 MEQ/L (21.0-32.0); BLOOD UREA NITROGEN 16 MG/DL (7-18); CHLORIDE 105 MEQ/L (98-107); GLOMERULAR FILTRATION RATE 58 ML/MIN (>89); POTASSIUM 3.2 MEQ/L (3.5-5.1); SODIUM (NA) 140 MEQ/L (136-145); TOTAL BILIRUBIN ADULT 2.7 MG/DL (0.2-1.0)
[2016-10-17 08:00] VITALS: BP 122/62; PULSE 81; RESP 16; TEMP 96.9; O2SAT 98
[2016-10-17] MEDS: FOLIC ACID 1 MG TAB PO SCH (09:51)
[2016-10-17] MEDS: ERGOCALCIFEROL (VIT D2) 50,000 UNIT CAP PO SCH (09:51)
[2016-10-17] MEDS: RIFAXIMIN 550 MG TAB PO SCH ×2 (09:51→21:34)
[2016-10-17] MEDS: METOPROLOL TARTRATE 25 MG TAB PO SCH ×2 (09:51→21:34)
[2016-10-17] MEDS: METOCLOPRAMIDE HCL 10 MG/2 ML VIAL IV PUSH PRN ×2 (10:47→21:39)
[2016-10-17] MEDS ORDERED: POTASSIUM CHLORIDE 25 MEQ EFFERVESCENT TAB PO ONE (11:00)
--- NOTE | 2016-10-17 11:00 | HHI.PR ---
Subjective Remarks no further diarrhea very hungry- requesting to eat no abdominal pain, nausea or vomiting Objective Vitals Vital Signs Date Time Temp Pulse Resp B/P Pulse Ox O2 Delivery O2 Flow Rate FiO2 10/17/16 08:00 96.9 81 16 122/62 98 10/17/16 00:00 98.8 88 20 106/52 97 10/16/16 20:00 98.6 81 20 131/60 99 10/16/16 16:00 98.1 75 16 131/64 99 10/16/16 12:00 96.5 73 16 123/58 100 I/O 10/16/16 10/16/16 10/16/16 10/17/16 10/17/16 10/17/16 07:00 15:00 23:00 07:00 15:00 23:00 Intake Total 688 ml 867 ml 0 ml 1739 ml Balance 688 ml 867 ml 0 ml 1739 ml Intake Oral 0 ml 0 ml 0 ml 0 ml IV Total 688 ml 867 ml 1739 ml # Voids 3 7 6 2 # Bowel Movements 0 0 1 0 Result Diagram: 10/14/16 1315 10/17/16 0608 Imaging Last Impressions Cholangiopancreatography MRI 10/16/16 0000 Signed Impressions: Service Date/Time: Sunday, October 16, 2016 20:50 - CONCLUSION: 1. The gallbladder is small size with no distinct gallstones identified. 2. Hepatic steatosis with TIPS catheter in place. 3. No evidence of biliary obstruction. Kota Rushing MD Abdomen/Pelvis CT 10/14/16 1249 Signed Impressions: Service Date/Time: Friday, October 14, 2016 15:06 - CONCLUSION: 1. Mild induration of the fat surrounding the pancreas suggesting mild inflammation. This could represent an acute pancreatitis. Suggest correlation with the appropriate laboratory values. 2. Severe hepatic steatosis. TIPS device is present. 3. Cholelithiasis. Jeremy Martin MD Abdomen X-Ray 10/14/161248 Signed Impressions: Service Date/Time: Friday, October 14, 2016 13:39 - CONCLUSION: No evidence of pneumoperitoneum Jeremy Carter MD Objective Remarks awake and alert, no tremors anicteric no nuchal rigidity decreased breath sounds, no rales or wheezes abdomen- soft, non tender, good bowel sounds, no guarding extremities no edema A/P Assessment and Plan 58-year-old female presenting with nausea and vomiting persistent on exam with Acute pancreatitis. - Likely alcohol related - lipase elevated still but clinically feeling better Patient with history of alcoholism. Patient states had been thin but he did she think she did admit that she had 2-3 glasses of vodka 5 days ago. try clear liquids- Zofran 4 mg IV every 6 when necessary. Protonix IV MRCP results- noted GI ff ETOH withdrawal on CIWA protocol states she takes Ativan prn for anxiety. On record- - with Valium- gives her the opposite effect- makes her more agitated per patient History of tachycardia- questionably idiopathic.- better controlled- worsened by ETOH withdrawal Continue on metoprolol home dose.- 25 mg po bid History of liver cirrhosis- status post TIPS procedure. In the past had required periodic paracentesis. Not in any form of encephalopathy.. monitor Acute on Chronic kidney insufficiency creatinine near baseline. Will hold off on diuretics.- Improved Gentle hydration. ff labs- BMP Urinary tract infection - positive pyuria. on Levaquin IV daily chronic back pain- patient now states on Lidoderm aptch for low back pain up and ambulating around- restart patch here teds/patient up and ambulating Out of bed- Carri Birmingham MD Oct 17, 2016 10:59
[2016-10-17] MEDS ORDERED: PILL SPLITTER OTHER PRN (11:15)
[2016-10-17] MEDS ORDERED: LIDOCAINE HCL 5% PATCH T-DERMAL SCH (11:15)
--- NOTE | 2016-10-17 11:54 | HHI.GIFU ---
Subjective Remarks Resting in bed. States she is not having any abdominal pain, states she was really never having abdominal pain, more generalized weakness. Objective Vitals I&O Vital Signs Date Time Temp Pulse Resp B/P Pulse Ox O2 Delivery O2 Flow Rate FiO2 10/17/16 08:00 96.9 81 16 122/62 98 10/17/16 00:00 98.8 88 20 106/52 97 10/16/16 20:00 98.6 81 20 131/60 99 10/16/16 16:00 98.1 75 16 131/64 99 10/16/16 12:00 96.5 73 16 123/58 100 I/O 10/16/16 10/16/16 10/16/16 10/17/16 10/17/16 10/17/16 07:00 15:00 23:00 07:00 15:00 23:00 Intake Total 688 ml 867 ml 0 ml 1739 ml Balance 688 ml 867 ml 0 ml 1739 ml Intake Oral 0 ml 0 ml 0 ml 0 ml IV Total 688 ml 867 ml 1739 ml # Voids 3 7 6 2 # Bowel Movements 0 0 1 0 Laboratory Laboratory Tests Test 10/17/16 06:08 Sodium Level 140 Potassium Level 3.2 Chloride Level 105 Carbon Dioxide Level 26.8 Anion Gap 8 Blood Urea Nitrogen 16 Creatinine 0.97 Estimat Glomerular Filtration 58 Rate Random Glucose 133 Calcium Level 8.2 Total Bilirubin 2.7 Aspartate Amino Transf 133 (AST/SGOT) Alanine Aminotransferase 55 (ALT/SGPT) Alkaline Phosphatase 124 Total Protein 4.7 Albumin 2.5 Lipase 4485 Date/Time Procedure Status Source Growth 10/14/16 14:30 Urine Culture - Final Complete Urine Random Urine 50-100,000 CFU/ML MIXED WENDI... Imaging Last Impressions Cholangiopancreatography MRI 10/16/16 0000 Signed Impressions: Service Date/Time: Sunday, October 16, 2016 20:50 - CONCLUSION: 1. The gallbladder is small size with no distinct gallstones identified. 2. Hepatic steatosis with TIPS catheter in place. 3. No evidence of biliary obstruction. Kota Rushing MD Abdomen/Pelvis CT 10/14/16 1249 Signed Impressions: Service Date/Time: Friday, October 14, 2016 15:06 - CONCLUSION: 1. Mild induration of the fat surrounding the pancreas suggesting mild inflammation. This could represent an acute pancreatitis. Suggest correlation with the appropriate laboratory values. 2. Severe hepatic steatosis. TIPS device is present. 3. Cholelithiasis. Jeremy Martin MD Abdomen X-Ray 10/14/16 1249 Signed Impressions: Service Date/Time: Friday, October 14, 2016 13:39 - CONCLUSION: No evidence of pneumoperitoneum Jeremy Carter MD Physical Exam HEENT: Normocephalic; atraumatic; no jaundice. CHEST: CTA CARDIAC: RRR ABDOMEN: Soft, nondistended, nontender; hepatosplenomegaly; bowel sounds are present in all four quadrants. EXTREMITIES: BLE edema, Right > Left. SKIN: Normal; no rash; no jaundice. STOCK CRANE OPERATOR: No focal deficits; alert and oriented times three. Assessment and Plan Plan ASSESSMENT - Acute pancreatitis. Abdomen/Pelvis CT (10/14/16)-----> 1. Mild induration of the fat surrounding the pancreas suggesting mild inflammation. This could represent an acute pancreatitis. Suggest correlation with the appropriate laboratory values. 2. Severe hepatic steatosis. TIPS device is present. 3. Cholelithiasis. MRCP (10/16/16)----> 1. The gallbladder is small size with no distinct gallstones identified. 2. Hepatic steatosis with TIPS catheter in place. 3. No evidence of biliary obstruction. Pt has gb, no hx of gb disease. She is on furosemide, a Class 1A drug for acute pancreatitis, but has been on this for a long time. She was positive for ETOH- 48. Pt states she had one alcoholic drink last Friday. However, she has fine tremors as well, ? unclear if she is drinking more than she states. Lipase yesterday was 4485. Will check again today. Clinically, she is not having any nausea/vomiting/ abdominal pain. Suspect this is ETOH related- pt also has fine tremors, suspect she is downplaying her ETOH use. 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 Was seen at [place], but states she did not care for them and then switched to [facility]. She was last seen 3 months ago, told she was taken off the list because her MELD score had improved. She has a TIPS, states for ascites not bleeding. T. Bili 2.7, AST 133, ALT 55, Alk Phosph 124. ? recent etoh use caused some decompensation of her liver disease. On Lasix, Spironolactone at home. MELD is 12. - Tremors (fine), Suspected ETOH w/d. DT precautions. - BLE edema, on furosemide/spironolactone at home. - ERENDIRA, improved. - UTI, per primary. PLAN: - Clear liquids - Lipase today - Cont. Xifaxan - Add Spironolactone. - Consider adding furosemide if no improvement with spironolactone - DT precautions - CBC, CMP, Lipase, PT/INR in am - Supportive care - Further recommendations to follow based on results of above - Pt seen and examined by Dr. Villaseñor and myself and this note is written on his behalf PLAN - MRCP - IGG4 - monitor LFTs - supportive care - IVF - further recommendations to follow This pt seen by myself and Dr Villaseñor and this note is written on his behalf Aretha Verde Oct 17, 2016 11:54
[2016-10-17 12:00] VITALS: BP 123/58; PULSE 102; RESP 16; TEMP 99.5; O2SAT 99
[2016-10-17] MEDS: SPIRONOLACTONE 50 MG TAB PO SCH (13:03)
[2016-10-17 14:02] LABS: GAMMA GT 376 U/L (5-55)
[2016-10-17 16:00] VITALS: BP 125/61; PULSE 77; RESP 16; TEMP 99.7; O2SAT 98
[2016-10-17 20:00] VITALS: BP 119/56; PULSE 76; RESP 18; TEMP 99; O2SAT 97
[2016-10-17] MEDS: REMOVE OLD LIDOCAINE PATCH T-DERMAL SCH (21:00)
[2016-10-17] MEDS ORDERED: METOPROLOL TARTRATE 25 MG TAB PO SCH (21:00)
[2016-10-17] MEDS: LIDOCAINE HCL 5% PATCH T-DERMAL PRN (21:34)
[2016-10-17] MEDS: PANTOPRAZOLE SODIUM 40 MG VIAL IV PUSH SCH (21:35)
[2016-10-17] MEDS: LEVOFLOXACIN/DEXTROSE 250 MG/50 ML IV SCH (21:35)
[2016-10-18] VITALS: BP 110/56; PULSE 62; RESP 18; TEMP 98.3; O2SAT 96
[2016-10-18] MEDS: POTASSIUM CHLORIDE INJ 30 MEQ in DEXT 5%-NACL 0.9% 1000 ML INJ 1,000 ML IV SCH ×3 (02:30→16:51)
[2016-10-18 06:10] LABS: AUTOMATED NEUTROPHIL # 2.7 TH/MM3 (1.8-7.7); BASOPHIL % 0.5 % (0.0-2.0); EOSINOPHIL # 0.1 TH/MM3 (0-0.4); EOSINOPHIL % 3.6 % (0.0-4.0); HEMATOCRIT 30.1 % (35.0-46.0); LYMPH % 20.9 % (9.0-44.0); LYMPHOCYTE # 0.9 TH/MM3 (1.0-4.8); MEAN CELL VOLUME 93.1 FL (80.0-100.0); MEAN CORPUSCULAR HGB CONC 33.3 % (32.0-36.0); MONO % 10.4 % (0.0-8.0); NEUT % 64.6 % (16.0-70.0); PLATELET COUNT 99 TH/MM3 (150-450); RED BLOOD COUNT 3.24 MIL/MM3 (4.00-5.30); RED CELL DISTRIBUTION WIDTH 18.3 % (11.6-17.2); WHITE BLOOD COUNT 4.2 TH/MM3 (4.0-11.0)
[2016-10-18 06:16] LABS: INTERNATIONAL NORMALIZED RATIO 1.4 RATIO; PROTHROMBIN TIME - PATIENT 15.6 SEC (9.8-11.6)
[2016-10-18 06:40] LABS: ALT (GPT) 53 U/L (10-53); ANION GAP 10 MEQ/L (5-15); AST (GOT) 109 U/L (15-37); BLOOD UREA NITROGEN 13 MG/DL (7-18); CHLORIDE 105 MEQ/L (98-107); POTASSIUM 3.2 MEQ/L (3.5-5.1); SODIUM (NA) 140 MEQ/L (136-145)
[2016-10-18 06:43] LABS: ALKALINE PHOSPHATASE 131 U/L (45-117); TOTAL BILIRUBIN ADULT 2.9 MG/DL (0.2-1.0)
[2016-10-18 07:08] LABS: HEMO FLAGS AUTO DIFF
[2016-10-18 07:10] LABS: OVALOCYTES 1+ (NORMAL)
[2016-10-18 07:11] LABS: PLATELET ESTIMATE SMEAR LOW (NORMAL); PLATELET MORPHOLOGY NORMAL (NORMAL); SCAN/DIFF AUTO DIFF CONFIRMED
[2016-10-18 08:00] VITALS: BP 112/54; PULSE 79; RESP 16; TEMP 98.8; O2SAT 97
[2016-10-18] MEDS ORDERED: POTASSIUM CHLOR 20 MEQ PREMIX 100 ML IV ONE (09:00)
--- NOTE | 2016-10-18 09:07 | HHI.PR ---
Subjective Remarks awake and alert, no complains of abdominal pain, nausea, vomiting or diarrhea wanting to eat more food up and ambulating to the bathroom- slowly Objective Vitals Vital Signs Date Time Temp Pulse Resp B/P Pulse Ox O2 Delivery O2 Flow Rate FiO2 10/18/16 08:00 98.8 79 16 112/54 97 10/18/16 00:00 98.3 62 18 110/56 96 10/17/16 20:00 99.0 76 18 119/56 97 10/17/16 16:00 99.7 77 16 125/61 98 10/17/16 12:00 99.5 102 16 123/58 99 I/O 10/17/16 10/17/16 10/17/16 10/18/16 10/18/16 10/18/16 07:00 15:00 23:00 07:00 15:00 23:00 Intake Total 1739 ml 60 ml 240 ml 545 ml Balance 1739 ml 60 ml 240 ml 545 ml Intake Oral 0 ml 60 ml 240 ml 120 ml IV Total 1739 ml 425 ml # Voids 2 3 3 3 # Bowel Movements 0 0 0 0 Result Diagram: 10/18/16 0455 10/18/16 0455 Imaging Last Impressions Cholangiopancreatography MRI 10/16/16 0000 Signed Impressions: Service Date/Time: Sunday, October 16, 2016 20:50 - CONCLUSION: 1. The gallbladder is small size with no distinct gallstones identified. 2. Hepatic steatosis with TIPS catheter in place. 3. No evidence of biliary obstruction. Kota Rushing MD Abdomen/Pelvis CT 10/14/16 1249 Signed Impressions: Service Date/Time: Friday, October 14, 2016 15:06 - CONCLUSION: 1. Mild induration of the fat surrounding the pancreas suggesting mild inflammation. This could represent an acute pancreatitis. Suggest correlation with the appropriate laboratory values. 2. Severe hepatic steatosis. TIPS device is present. 3. Cholelithiasis. Jeremy Martin MD Abdomen X-Ray 10/14/16 1249 Signed Impressions: Service Date/Time: Friday, October 14, 2016 13:39 - CONCLUSION: No evidence of pneumoperitoneum Jeremy Carter MD Objective Remarks awake and alert, not tremulous anicteric no nuchal rigidity decreased breath sounds, no rales or wheezes abdomen- soft, non tender, good bowel sounds, no guarding, no rigidity, good bowel sounds extremities no edema Procedures Last Impressions Cholangiopancreatography MRI 10/16/16 0000 Signed Impressions: Service Date/Time: Sunday, October 16, 2016 20:50 - CONCLUSION: 1. The gallbladder is small size with no distinct gallstones identified. 2. Hepatic steatosis with TIPS catheter in place. 3. No evidence of biliary obstruction. Kota Rushing MD Abdomen/Pelvis CT 10/14/16 1249 Signed Impressions: Service Date/Time: Friday, October 14, 2016 15:06 - CONCLUSION: 1. Mild induration of the fat surrounding the pancreas suggesting mild inflammation. This could represent an acute pancreatitis. Suggest correlation with the appropriate laboratory values. 2. Severe hepatic steatosis. TIPS device is present. 3. Cholelithiasis. Jeremy Martin MD Abdomen X-Ray 10/14/16 1249 Signed Impressions: Service Date/Time: Friday, October 14, 2016 13:39 - CONCLUSION: No evidence of pneumoperitoneum Jeremy Carter MD A/P Assessment and Plan 58-year-old female presenting with nausea and vomiting persistent on exam with Acute pancreatitis. - Likely alcohol related - lipase elevated still but clinically improving- Patient with history of alcoholism. Patient states had been thin but he did she think she did admit that she had 2-3 glasses of vodka 5 days ago. tolerated clears- advance diet- full liquids- if tolerated th Zofran 4 mg IV every 6 when necessary. Protonix IV MRCP results- noted GI ff ETOH withdrawal on CIWA protocol- not requiring much states she takes Ativan prn for anxiety. On record- - with Valium- gives her the opposite effect- makes her more agitated per patient Hypokalemia- replace IV and monitor History of tachycardia- questionably idiopathic.- better controlled- worsened by ETOH withdrawal - controlled - Continue on metoprolol home dose.- 25 mg po bid History of liver cirrhosis- status post TIPS procedure. In the past had required periodic paracentesis. Not in any form of encephalopathy.. monitor. started on aldactone by GI Acute on Chronic kidney insufficiency creatinine near baseline. Resolved . Will hold off on diuretics.- Improved Gentle hydration. ff labs- BMP po advance as tolerated Urinary tract infection - positive pyuria. on Levaquin IV daily- change to po chronic back pain- patient now states on Lidoderm patch for low back pain up and ambulating around- restart patch here teds/patient up and ambulating Out of bed- adlib ELVIA planning Carri Cancino MD Oct 18, 2016 09:07
[2016-10-18] MEDS: ERGOCALCIFEROL (VIT D2) 50,000 UNIT CAP PO SCH (09:18)
[2016-10-18] MEDS: RIFAXIMIN 550 MG TAB PO SCH ×2 (09:18→21:00)
[2016-10-18] MEDS: METOPROLOL TARTRATE 25 MG TAB PO SCH ×2 (09:18→21:00)
[2016-10-18] MEDS: FOLIC ACID 1 MG TAB PO SCH (09:18)
[2016-10-18] MEDS: SPIRONOLACTONE 50 MG TAB PO SCH (09:18)
[2016-10-18 12:00] VITALS: BP 127/58; PULSE 79; RESP 17; TEMP 99.7; O2SAT 99
--- NOTE | 2016-10-18 15:12 | HHI.GIFU ---
Subjective Remarks Pt sitting on edge of bed. c/o edema, swelling. Objective Vitals I&O Vital Signs Date Time Temp Pulse Resp B/P Pulse Ox O2 Delivery O2 Flow Rate FiO2 10/18/16 12:00 99.7 79 17 127/58 99 10/18/16 08:00 98.8 79 16 112/54 97 10/18/16 00:00 98.3 62 18 110/56 96 10/17/16 20:00 99.0 76 18 119/56 97 10/17/16 16:00 99.7 77 16 125/61 98 I/O 10/17/16 10/17/16 10/17/16 10/18/16 10/18/16 10/18/16 07:00 15:00 23:00 07:00 15:00 23:00 Intake Total 1739 ml 60 ml 240 ml 545 ml 480 ml Balance 1739 ml 60 ml 240 ml 545 ml 480 ml Intake Oral 0 ml 60 ml 240 ml 120 ml 480 ml IV Total 1739 ml 425 ml # Voids 2 3 3 3 3 # Bowel Movements 0 0 0 0 0 Laboratory Laboratory Tests Test 10/18/16 10/18/16 04:55 05:47 White Blood Count 4.2 Red Blood Count 3.24 Hemoglobin 10.0 Hematocrit 30.1 Mean Corpuscular Volume 93.1 Mean Corpuscular Hemoglobin 31.0 Mean Corpuscular Hemoglobin 33.3 Concent Red Cell Distribution Width 18.3 Platelet Count 99 Mean Platelet Volume 7.6 Neutrophils (%) (Auto) 64.6 Lymphocytes (%) (Auto) 20.9 Monocytes (%) (Auto) 10.4 Eosinophils (%) (Auto) 3.6 Basophils (%) (Auto) 0.5 Neutrophils # (Auto) 2.7 Lymphocytes # (Auto) 0.9 Monocytes # (Auto) 0.4 Eosinophils # (Auto) 0.1 Basophils # (Auto) 0.0 CBC Comment AUTO DIFF Differential Comment AUTO DIFF CONFIRMED Platelet Estimate LOW Platelet Morphology Comment NORMAL Ovalocytes 1+ Sodium Level 140 Potassium Level 3.2 Chloride Level 105 Carbon Dioxide Level 25.0 Anion Gap 10 Blood Urea Nitrogen 13 Creatinine 0.93 Random Glucose 100 Calcium Level 8.2 Total Bilirubin 2.9 Aspartate Amino Transf 109 (AST/SGOT) Alanine Aminotransferase 53 (ALT/SGPT) Alkaline Phosphatase 131 Total Protein 4.9 Albumin 2.6 Lipase 4512 Prothrombin Time 15.6 Prothromb Time International 1.4 Ratio Date/Time Procedure Status Source Growth 10/14/16 14:30 Urine Culture - Final Complete Urine Random Urine 50-100,000 CFU/ML MIXED WENDI... Imaging Last Impressions Cholangiopancreatography MRI 10/16/16 0000 Signed Impressions: Service Date/Time: Sunday, October 16, 2016 20:50 - CONCLUSION: 1. The gallbladder is small size with no distinct gallstones identified. 2. Hepatic steatosis with TIPS catheter in place. 3. No evidence of biliary obstruction. Kota Rushing MD Abdomen/Pelvis CT 10/14/16 1249 Signed Impressions: Service Date/Time: Friday, October 14, 2016 15:06 - CONCLUSION: 1. Mild induration of the fat surrounding the pancreas suggesting mild inflammation. This could represent an acute pancreatitis. Suggest correlation with the appropriate laboratory values. 2. Severe hepatic steatosis. TIPS device is present. 3. Cholelithiasis. Jeermy Martin MD Abdomen X-Ray 10/14/16 1249 Signed Impressions: Service Date/Time: Friday, October 14, 2016 13:39 - CONCLUSION: No evidence of pneumoperitoneum Jeremy Carter MD Physical Exam HEENT: Normocephalic; atraumatic; no jaundice. CHEST: CTA CARDIAC: RRR ABDOMEN: Soft, nondistended, nontender; hepatosplenomegaly; bowel sounds are present in all four quadrants. EXTREMITIES: BLE edema SKIN: Normal; no rash; no jaundice. WHISKEY FILTERER: No focal deficits; alert and oriented times three. Assessment and Plan Plan ASSESSMENT - Acute pancreatitis. Abdomen/Pelvis CT (10/14/16)-----> 1. Mild induration of the fat surrounding the pancreas suggesting mild inflammation. This could represent an acute pancreatitis. Suggest correlation with the appropriate laboratory values. 2. Severe hepatic steatosis. TIPS device is present. 3. Cholelithiasis. MRCP (10/16/16)----> 1. The gallbladder is small size with no distinct gallstones identified. 2. Hepatic steatosis with TIPS catheter in place. 3. No evidence of biliary obstruction. Pt has gb, no hx of gb disease. She is on furosemide, a Class 1A drug for acute pancreatitis, but has been on this for a long time. She was positive for ETOH- 48. Pt states she had one alcoholic drink last Friday. However, she has fine tremors as well, ? unclear if she is drinking more than she states. Clinically, she is not having any nausea/vomiting/abdominal pain. Suspect this is ETOH related- pt also has fine tremors,suspect she is downplaying her ETOH use. 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 Was seen at [place], but states she did not care for them and then switched to [facility]. She was last seen 3 months ago, told she was taken off the list because her MELD score had improved. She has a TIPS, states for ascites not bleeding. ? recent etoh use caused some decompensation. Lipase remains elevated, igg4 pending of her liver disease. On Lasix, Spironolactone at home. MELD is 12. - Tremors (fine), Suspected ETOH w/d. DT precautions. - BLE edema, on furosemide/spironolactone at home. - ERENDIRA, improved. - UTI, per primary. PLAN: - CAROLA - monitor labs - Cont. Xifaxan - consider adding furosemide - DT precautions - Supportive care - Further recommendations to follow based on results of above - Pt seen and examined by Dr. Villaseñor and myself and this note is written on his behalf Aishwarya Huynh Oct 18, 2016 15:12
[2016-10-18 16:00] VITALS: BP 130/59; PULSE 78; RESP 17; TEMP 98.4; O2SAT 99
[2016-10-18 20:00] VITALS: BP 125/59; PULSE 71; RESP 19; TEMP 99.1; O2SAT 100
[2016-10-18] MEDS ORDERED: LEVOFLOXACIN 500 MG PREMIX INJ 100 ML IV SCH (20:00)
[2016-10-18] MEDS: LIDOCAINE HCL 5% PATCH T-DERMAL PRN (20:38)
[2016-10-18] MEDS: PANTOPRAZOLE SODIUM 40 MG VIAL IV PUSH SCH (20:43)
[2016-10-18] MEDS: REMOVE OLD LIDOCAINE PATCH T-DERMAL SCH (21:00)
[2016-10-19] VITALS: BP 138/65; PULSE 68; RESP 19; TEMP 96.8; O2SAT 96
[2016-10-19] MEDS: POTASSIUM CHLORIDE INJ 30 MEQ in DEXT 5%-NACL 0.9% 1000 ML INJ 1,000 ML IV SCH (07:30)
[2016-10-19 08:00] VITALS: BP 130/60; PULSE 73; RESP 20; TEMP 98.9; O2SAT 98
[2016-10-19] MEDS: METOPROLOL TARTRATE 25 MG TAB PO SCH ×2 (08:38→21:59)
[2016-10-19] MEDS: RIFAXIMIN 550 MG TAB PO SCH ×2 (08:41→21:59)
[2016-10-19] MEDS: ERGOCALCIFEROL (VIT D2) 50,000 UNIT CAP PO SCH (08:41)
[2016-10-19] MEDS: SPIRONOLACTONE 50 MG TAB PO SCH (08:41)
[2016-10-19] MEDS: FOLIC ACID 1 MG TAB PO SCH (08:41)
--- NOTE | 2016-10-19 09:08 | HHI.GIFU ---
Subjective Remarks Pt complains about not being able to get any sleep for the last 4 days. She is tolerating regular diet. Pt complains about getting all the IVF and having to urinate frequently. She wants the IVF stopped Pt ambulating in the room without much difficulty per the pt. Afebrile. (Jennifer Amaro) Objective Vitals I&O Vital Signs Date Time Temp Pulse Resp B/P Pulse Ox O2 Delivery O2 Flow Rate FiO2 10/19/16 00:00 96.8 68 19 138/65 96 10/18/16 20:00 99.1 71 19 125/59 100 10/18/16 16:00 98.4 78 17 130/59 99 10/18/16 12:00 99.7 79 17 127/58 99 I/O 10/18/16 10/18/16 10/18/16 10/19/16 10/19/16 10/19/16 07:00 15:00 23:00 07:00 15:00 23:00 Intake Total 545 ml 480 ml 734 ml 948 ml Balance 545 ml 480 ml 734 ml 948 ml Intake Oral 120 ml 480 ml 240 ml 240 ml IV Total 425 ml 494 ml 708 ml # Voids 3 3 2 2 # Bowel Movements 0 0 0 0 Laboratory Date/Time Procedure Status Source Growth 10/14/16 14:30 Urine Culture - Final Complete Urine Random Urine 50-100,000 CFU/ML MIXED WENDI... Imaging Last Impressions Cholangiopancreatography MRI 10/16/16 0000 Signed Impressions: Service Date/Time: Sunday, October 16, 2016 20:50 - CONCLUSION: 1. The gallbladder is small size with no distinct gallstones identified. 2. Hepatic steatosis with TIPS catheter in place. 3. No evidence of biliary obstruction. Kota Rushing MD Abdomen/Pelvis CT 10/14/16 124 Signed Impressions: Service Date/Time: Friday, October 14, 2016 15:06 - CONCLUSION: 1. Mild induration of the fat surrounding the pancreas suggesting mild inflammation. This could represent an acute pancreatitis. Suggest correlation with the appropriate laboratory values. 2. Severe hepatic steatosis. TIPS device is present. 3. Cholelithiasis. Jeremy Martin MD Abdomen X-Ray 10/14/161248 Signed Impressions: Service Date/Time: Friday, October 14, 2016 13:39 - CONCLUSION: No evidence of pneumoperitoneum Jeremy Carter MD Physical Exam HEENT: Normocephalic; atraumatic; no jaundice. CHEST: CTA CARDIAC: RRR ABDOMEN: Soft, nondistended, nontender; hepatosplenomegaly; bowel sounds are present in all four quadrants. EXTREMITIES: BLE edema SKIN: Normal; no rash; no jaundice. [employer] MAGISTRATE: No focal deficits; alert and oriented times three. (Jennifer Amaro) Assessment and Plan Plan ASSESSMENT - Acute pancreatitis. Abdomen/Pelvis CT (10/14/16)-----> Mild induration of the fat surrounding the pancreas suggesting mild inflammation. This could represent an acute pancreatitis. Suggest correlation with the appropriate laboratory values. Severe hepatic steatosis. TIPS device is present. Cholelithiasis. MRCP (10/16/16)----> The gallbladder is small size with no distinct gallstones identified. Hepatic steatosis with TIPS catheter in place. No evidence of biliary obstruction. Pt has gb, no hx of gb disease. She is on furosemide, a Class 1A drug for acute pancreatitis, but has been on this for a long time. She was positive for ETOH- 48. Pt states she had one alcoholic drink last Friday. However, she has fine tremors as well, ?unclear if she is drinking more than she states. Clinically, she is not having any nausea/vomiting/abdominal pain. Suspect this is ETOH related- pt also has fine tremors,suspect she is downplaying her ETOH use. 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 Was seen at [place], but states she did not care for them and then switched to [facility]. She was last seen 3 months ago, told she was taken off the list because her MELD score had improved. She has a TIPS, states for ascites not bleeding. ?recent etoh use caused some decompensation. Lipase remains elevated, igg4 pending of her liver disease. On Lasix, Spironolactone at home. MELD is 12. - Tremors (fine), Suspected ETOH w/d. DT precautions. - BLE edema, on furosemide/spironolactone at home. - ERENDIRA, improved. - UTI, per primary. PLAN: - CAROLA - Repeat labs today. - If Lipase improving ok to decrease IVF - Cont. Xifaxan - Pt with LE edema which she reports is always present, but her documented weights have been increasing since admission. Cont. Aldactone. Resume Lasix , pt reportedly takes 20mg po daily at home and KCL 10meq daily. - Monitor electrolytes and replace as needed - Elevate legs and MASSIEL hose. - Daily weights - DT precautions - Supportive care - Further recommendations to follow based on results of above - The pt was seen and examined by myself and Dr. Yang, this note was written on his behalf. (Jennifer Amaro) Physician Comments Patient seen and examined Agree with above Continue with current supportive care Monitor labs (Dion Yang MD) Jennifer Amaro Oct 19, 2016 09:08 Dion Yang MD Oct 19, 2016 20:36
--- NOTE | 2016-10-19 10:52 | HHI.PR ---
Subjective Remarks tolerating clears, no nausea or vomiting, no abdominal pain no diarrhea Objective Vitals Vital Signs Date Time Temp Pulse Resp B/P Pulse Ox O2 Delivery O2 Flow Rate FiO2 10/19/16 08:00 98.9 73 20 130/60 98 10/19/16 00:00 96.8 68 19 138/65 96 10/18/16 20:00 99.1 71 19 125/59 100 10/18/16 16:00 98.4 78 17 130/59 99 10/18/16 12:00 99.7 79 17 127/58 99 I/O 10/18/16 10/18/16 10/18/16 10/19/16 10/19/16 10/19/16 07:00 15:00 23:00 07:00 15:00 23:00 Intake Total 545 ml 480 ml 734 ml 948 ml Balance 545 ml 480 ml 734 ml 948 ml Intake Oral 120 ml 480 ml 240 ml 240 ml IV Total 425 ml 494 ml 708 ml # Voids 3 3 2 2 # Bowel Movements 0 0 0 0 Result Diagram: 10/18/16 0455 10/18/16 0455 Objective Remarks awake and alert, no tremors anicteric no nuchal rigidity decreased breath sounds, no rales or wheezes abdomen- soft, non tender, good bowel sounds, no guarding, no rigidity, good bowel sounds extremities no edema Procedures Last Impressions Cholangiopancreatography MRI 10/16/16 0000 Signed Impressions: Service Date/Time: Sunday, October 16, 2016 20:50 - CONCLUSION: 1. The gallbladder is small size with no distinct gallstones identified. 2. Hepatic steatosis with TIPS catheter in place. 3. No evidence of biliary obstruction. Kota Rushing MD Abdomen/Pelvis CT 10/14/16 1249 Signed Impressions: Service Date/Time: Friday, October 14, 2016 15:06 - CONCLUSION: 1. Mild induration of the fat surrounding the pancreas suggesting mild inflammation. This could represent an acute pancreatitis. Suggest correlation with the appropriate laboratory values. 2. Severe hepatic steatosis. TIPS device is present. 3. Cholelithiasis. Jeremy Martin MD Abdomen X-Ray 10/14/16 1249 Signed Impressions: Service Date/Time: Friday, October 14, 2016 13:39 - CONCLUSION: No evidence of pneumoperitoneum Jeremy Carter MD A/P Assessment and Plan 58-year-old female presenting with nausea and vomiting persistent on exam with Acute pancreatitis. - Likely alcohol related -clinically improving , lipase still elevated but trending down Patient with history of alcoholism. Patient states had been thin but he did she think she did admit that she had 2-3 glasses of vodka 5 days ago. tolerated clears- advance diet- full liquids- Zofran 4 mg IV every 6 when necessary. Protonix IV MRCP results- noted GI ff ETOH withdrawal on CIWA protocol- not requiring much states she takes Ativan prn for anxiety. On record- - with Valium- gives her the opposite effect- makes her more agitated per patient Hypokalemia- replaced IV - 10/18. . BMP today History of tachycardia- questionably idiopathic.- better controlled- worsened by ETOH withdrawal - controlled - Continue on metoprolol home dose.- 25 mg po bid History of liver cirrhosis- status post TIPS procedure. In the past had required periodic paracentesis. Not in any form of encephalopathy.. monitor. started on aldactone/Lasix by GI Acute on Chronic kidney insufficiency creatinine near baseline. Resolved . ff labs- BMP po advance as tolerated Pyuria.- final - no growth- frequency change to po Levaquin x 2 days more then DC chronic back pain- patient now states on Lidoderm patch for low back pain up and ambulating around- restarted patch here Insomnia- Restoril 7.5 mg hs prn teds/patient up and ambulating Out of bed- adlib DC planning Carri Cancino MD Oct 19, 2016 10:52
[2016-10-19] MEDS: METOCLOPRAMIDE HCL 10 MG/2 ML VIAL IV PUSH PRN (11:27)
[2016-10-19] MEDS: FUROSEMIDE 20 MG TAB PO SCH (11:28)
[2016-10-19] MEDS: POTASSIUM CHLORIDE 10 MEQ CAP PO SCH (11:28)
[2016-10-19 11:58] LABS: ANION GAP 8 MEQ/L (5-15); AST (GOT) 73 U/L (15-37); BICARBONATE 23.4 MEQ/L (21.0-32.0); BLOOD UREA NITROGEN 10 MG/DL (7-18); CHLORIDE 105 MEQ/L (98-107); POTASSIUM 3.7 MEQ/L (3.5-5.1); SODIUM (NA) 136 MEQ/L (136-145)
[2016-10-19 11:59] LABS: ALT (GPT) 47 U/L (10-53)
[2016-10-19 12:00] VITALS: BP 146/67; PULSE 68; RESP 18; TEMP 97.6; O2SAT 100
[2016-10-19 12:01] LABS: ALKALINE PHOSPHATASE 151 U/L (45-117); TOTAL BILIRUBIN ADULT 3.1 MG/DL (0.2-1.0)
[2016-10-19] MEDS: LEVOFLOXACIN 500 MG TAB PO SCH (12:16)
[2016-10-19 16:00] VITALS: BP 129/63; PULSE 68; RESP 17; TEMP 97.3; O2SAT 100
[2016-10-19 20:00] VITALS: BP 111/59; PULSE 73; RESP 19; TEMP 98.8; O2SAT 99
[2016-10-19] MEDS: PANTOPRAZOLE SODIUM 40 MG VIAL IV PUSH SCH (20:00)
[2016-10-19] MEDS: REMOVE OLD LIDOCAINE PATCH T-DERMAL SCH (21:00)
[2016-10-19] MEDS: LORazepam 0.5 MG TAB PO PRN (21:59)
[2016-10-19] MEDS: LIDOCAINE HCL 5% PATCH T-DERMAL PRN (22:00)
[2016-10-20] VITALS: BP 119/56; PULSE 72; RESP 19; TEMP 99.7; O2SAT 98
[2016-10-20] MEDS: TEMAZEPAM 7.5 MG CAP PO PRN ×2 (00:04→21:17)
[2016-10-20 06:06] LABS: ALT (GPT) 38 U/L (10-53); ANION GAP 6 MEQ/L (5-15); AST (GOT) 48 U/L (15-37); BICARBONATE 26.8 MEQ/L (21.0-32.0); BLOOD UREA NITROGEN 9 MG/DL (7-18); CHLORIDE 105 MEQ/L (98-107); GLOMERULAR FILTRATION RATE 66 ML/MIN (>89); POTASSIUM 3.4 MEQ/L (3.5-5.1); SODIUM (NA) 138 MEQ/L (136-145)
[2016-10-20 06:08] LABS: ALKALINE PHOSPHATASE 144 U/L (45-117); TOTAL BILIRUBIN ADULT 2.5 MG/DL (0.2-1.0)
[2016-10-20 08:00] VITALS: BP 122/55; PULSE 68; RESP 18; TEMP 97.4; O2SAT 99
[2016-10-20] MEDS: SPIRONOLACTONE 50 MG TAB PO SCH (08:31)
[2016-10-20] MEDS: POTASSIUM CHLORIDE 10 MEQ CAP PO SCH (08:32)
[2016-10-20] MEDS: FOLIC ACID 1 MG TAB PO SCH (08:32)
[2016-10-20] MEDS: LEVOFLOXACIN 500 MG TAB PO SCH (08:32)
[2016-10-20] MEDS: ERGOCALCIFEROL (VIT D2) 50,000 UNIT CAP PO SCH (08:32)
[2016-10-20] MEDS: RIFAXIMIN 550 MG TAB PO SCH ×2 (08:32→20:24)
[2016-10-20] MEDS: METOPROLOL TARTRATE 25 MG TAB PO SCH ×2 (08:33→20:27)
[2016-10-20] MEDS: FUROSEMIDE 20 MG TAB PO SCH (08:33)
[2016-10-20] MEDS ORDERED: POTASSIUM CHLORIDE 20 MEQ CONTROLLED RELEASE TAB PO ONE (09:15)
--- NOTE | 2016-10-20 09:19 | HHI.PR ---
Subjective Remarks Afebrile, vital signs stable. Patient requiring one dose of oxycodone overnight secondary to abdominal pain. Denies nausea/vomiting. States her abdominal pain that was present yesterday has since resolved. Objective Vitals Vital Signs Date Time Temp Pulse Resp B/P Pulse Ox O2 Delivery O2 Flow Rate FiO2 10/20/16 08:00 97.4 68 18 122/55 99 10/20/16 00:00 99.7 72 19 119/56 98 10/19/16 20:00 98.8 73 19 111/59 99 10/19/16 16:00 97.3 68 17 129/63 100 10/19/16 12:00 97.6 68 18 146/67 100 I/O 10/19/16 10/19/16 10/19/16 10/20/16 10/20/16 10/20/16 07:00 15:00 23:00 07:00 15:00 23:00 Intake Total 948 ml 350 ml 240 ml 240 ml Output Total 0 ml Balance 948 ml 350 ml 240 ml 240 ml Intake Oral 240 ml 240 ml 240 ml IV Total 708 ml 350 ml 0 ml 0 ml Output Urine Total 0 ml # Voids 2 2 # Bowel Movements 0 0 0 Result Diagram: 10/18/16 0455 10/20/16 0526 Objective Remarks Gen.: No acute distress Head: Normocephalic. Atraumatic. EENT: Pupils equal round and reactive to light. Nose without drainage. Airway intact. Throat without injection. Cardiovascular: Regular rate and rhythm. No murmurs, rubs or gallops. Respiratory: Lungs clear to auscultation bilaterally. No wheezes or rhonchi. Abdomen: Soft, nontender, nondistended. No peritoneal signs. Musculoskeletal: No gross deformities. No edema. Skin: No obvious rashes or erythema. Neuro: Sensory and motor grossly intact. Cranial nerves II through XII grossly intact. Psych: Appropriate mood and affect Procedures Last Impressions Cholangiopancreatography MRI 10/16/16 0000 Signed Impressions: Service Date/Time: Sunday, October 16, 2016 20:50 - CONCLUSION: 1. The gallbladder is small size with no distinct gallstones identified. 2. Hepatic steatosis with TIPS catheter in place. 3. No evidence of biliary obstruction. Kota Rushing MD Abdomen/Pelvis CT 10/14/16 1249 Signed Impressions: Service Date/Time: Friday, October 14, 2016 15:06 - CONCLUSION: 1. Mild induration of the fat surrounding the pancreas suggesting mild inflammation. This could represent an acute pancreatitis. Suggest correlation with the appropriate laboratory values. 2. Severe hepatic steatosis. TIPS device is present. 3. Cholelithiasis. Jeremy Martin MD Abdomen X-Ray 10/14/16 1249 Signed Impressions: Service Date/Time: Friday, October 14, 2016 13:39 - CONCLUSION: No evidence of pneumoperitoneum Jeremy Carter MD A/P Problem List: (1) Acute pancreatitis ICD Code: K85.90 Status: Acute (2) Nausea & vomiting ICD Code: R11.2 Status: Acute (3) DM2 (diabetes mellitus, type 2) ICD Code: E11.9 Status: Chronic (4) Chronic kidney disease, stage III (moderate) ICD Code: N18.3 Status: Acute Assessment and Plan 58-year-old female presenting with nausea and vomiting persistent on exam with Acute pancreatitis. - Likely alcohol related - lipase elevated still but clinically improving- Patient with history of alcoholism. Patient states had been thin but he did she think she did admit that she had 2-3 glasses of vodka 5 days ago. Tolerating regular diet Zofran 4 mg IV every 6 when necessary. Protonix IV MRCP results- noted GI ff ETOH withdrawal on CIWA protocol- not requiring much states she takes Ativan prn for anxiety. On record- - with Valium- gives her the opposite effect- makes her more agitated per patient Hypokalemia- replace and monitor History of tachycardia- questionably idiopathic.- better controlled- worsened by ETOH withdrawal - controlled - Continue on metoprolol home dose.- 25 mg po bid History of liver cirrhosis- status post TIPS procedure. In the past had required periodic paracentesis. Not in any form of encephalopathy. monitor. started on aldactone by GI Acute on Chronic kidney insufficiency creatinine near baseline. Resolved. Urinary tract infection - positive pyuria. on Levaquin chronic back pain- patient now states on Lidoderm patch for low back pain up and ambulating around- restart patch here teds/patient up and ambulating Out of bed- adlib DC planning - possible dc to home tomorrow if continues to clinically improve Problem Qualifiers (1) Acute pancreatitis: Qualified Code: K85.90 - Acute pancreatitis, unspecified complication status, unspecified pancreatitis type (2) Nausea & vomiting: Qualified Code: R11.2 - Non-intractable vomiting with nausea, unspecified vomiting type Jennifer Duke MD R3 Oct 20, 2016 09:19
[2016-10-20 12:00] VITALS: BP 127/60; PULSE 66; RESP 18; TEMP 99.4; O2SAT 100
[2016-10-20 16:44] VITALS: BP 119/58; PULSE 62; RESP 18; TEMP 98.8; O2SAT 100
--- NOTE | 2016-10-20 16:50 | HHI.GIFU ---
Subjective Remarks Pt resting in bed. Complains that when lasix was added she had to urinate frequently. She is upset that her pain med, ativan, and sleep med were given separately. She is c/o umbilical pain that started 1.5 days ago where she prev had hernia. (Aishwarya Huynh) Objective Vitals I&O Vital Signs Date Time Temp Pulse Resp B/P Pulse Ox O2 Delivery O2 Flow Rate FiO2 10/20/16 12:00 99.4 66 18 127/60 100 10/20/16 08:00 97.4 68 18 122/55 99 10/20/16 00:00 99.7 72 19 119/56 98 10/19/16 20:00 98.8 73 19 111/59 99 I/O 10/19/16 10/19/16 10/19/16 10/20/16 10/20/16 10/20/16 07:00 15:00 23:00 07:00 15:00 23:00 Intake Total 948 ml 350 ml 240 ml 240 ml 0 ml Output Total 0 ml Balance 948 ml 350 ml 240 ml 240 ml 0 ml Intake Oral 240 ml 240 ml 240 ml IV Total 708 ml 350 ml 0 ml 0 ml 0 ml Output Urine Total 0 ml # Voids 2 2 # Bowel Movements 0 0 0 Laboratory Laboratory Tests Test 10/20/16 05:26 Sodium Level 138 Potassium Level 3.4 Chloride Level 105 Carbon Dioxide Level 26.8 Anion Gap 6 Blood Urea Nitrogen 9 Creatinine 0.87 Estimat Glomerular Filtration 66 Rate Random Glucose 93 Calcium Level 8.5 Total Bilirubin 2.5 Aspartate Amino Transf 48 (AST/SGOT) Alanine Aminotransferase 38 (ALT/SGPT) Alkaline Phosphatase 144 Total Protein 4.5 Albumin 2.3 Lipase 1480 Imaging Last Impressions Cholangiopancreatography MRI 10/16/16 0000 Signed Impressions: Service Date/Time: Sunday, October 16, 2016 20:50 - CONCLUSION: 1. The gallbladder is small size with no distinct gallstones identified. 2. Hepatic steatosis with TIPS catheter in place. 3. No evidence of biliary obstruction. Kota Rushing MD Abdomen/Pelvis CT 10/14/16 1249 Signed Impressions: Service Date/Time: Friday, October 14, 2016 15:06 - CONCLUSION: 1. Mild induration of the fat surrounding the pancreas suggesting mild inflammation. This could represent an acute pancreatitis. Suggest correlation with the appropriate laboratory values. 2. Severe hepatic steatosis. TIPS device is present. 3. Cholelithiasis. Jeremy Martin MD Abdomen X-Ray 10/14/16 1249 Signed Impressions: Service Date/Time: Friday, October 14, 2016 13:39 - CONCLUSION: No evidence of pneumoperitoneum Jeremy Carter MD Physical Exam HEENT: Normocephalic; atraumatic; + jaundice. CHEST: CTA CARDIAC: RRR ABDOMEN: Soft, nondistended, nontender; hepatosplenomegaly; bowel sounds are present in all four quadrants. EXTREMITIES: BLE edema SKIN: Normal; no rash; no jaundice. DRAFTER MARINE: No focal deficits; alert and oriented times three. (Aishwarya Huynh INCOME TAX EXPERT) Assessment and Plan Plan ASSESSMENT - Acute pancreatitis. improving. Abdomen/Pelvis CT (10/14/16)-----> Mild induration of the fat surrounding the pancreas suggesting mild inflammation. This could represent an acute pancreatitis. Suggest correlation with the appropriate laboratory values. Severe hepatic steatosis. TIPS device is present. Cholelithiasis. MRCP (10/16/16)----> The gallbladder is small size with no distinct gallstones identified. Hepatic steatosis with TIPS catheter in place. No evidence of biliary obstruction. Pt has gb, no hx of gb disease. She is on furosemide, a Class 1A drug for acute pancreatitis, but has been on this for a long time. She was positive for ETOH- 48. Pt states she had one alcoholic drink last Friday. However, she has fine tremors as well, ?unclear if she is drinking more than she states. Clinically, she is not having any nausea/vomiting/abdominal pain. Suspect this is ETOH related- pt also has fine tremors,suspect she is downplaying her ETOH use. 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 Was seen at [place], but states she did not care for them and then switched to [facility]. She was last seen 3 months ago, told she was taken off the list because her MELD score had improved. She has a TIPS, states for ascites not bleeding. ?recent etoh use caused some decompensation. Lipase decreasing, igg4 pending of her liver disease. On Lasix, Spironolactone at home. MELD is 12. - umbilical pain - onset 1.5 days ago where she had hernia previously - Tremors (fine), Suspected ETOH w/d. DT precautions. - BLE edema, on furosemide/spironolactone at home. - ERENDIRA, improved. - UTI, per primary. PLAN: -HIDA - US abd - CAROLA - Cont. Xifaxan - continue lasix - Elevate legs and MASSIEL hose. - Daily weights - DT precautions - Supportive care - Further recommendations to follow based on results of above - The pt was seen and examined by myself and Dr. Germain, this note was written on her behalf. (Aishwarya Huynh) Physician Comments seen, examined agree with above if continues to have pain in ombilical area-consult surgery-possible recurrent hernia (Porsche Germain MD) Aishwarya Huynh Oct 20, 2016 16:50 Porsche Germain MD Oct 20, 2016 19:30
[2016-10-20] MEDS ORDERED: BENZONATATE 100 MG CAP PO ONE (20:15)
[2016-10-20] MEDS: REMOVE OLD LIDOCAINE PATCH T-DERMAL SCH (20:25)
[2016-10-20] MEDS: PANTOPRAZOLE SODIUM 40 MG VIAL IV PUSH SCH (20:25)
[2016-10-20] MEDS: LIDOCAINE HCL 5% PATCH T-DERMAL PRN (20:25)
[2016-10-20 20:36] VITALS: BP 116/58; PULSE 67; RESP 20; TEMP 98.8; O2SAT 99
[2016-10-20] MEDS: LORazepam 0.5 MG TAB PO PRN (21:17)
[2016-10-21] VITALS: BP 137/63; PULSE 73; RESP 19; TEMP 96; O2SAT 100
[2016-10-21 06:01] LABS: AUTOMATED NEUTROPHIL # 1.5 TH/MM3 (1.8-7.7); BASOPHIL % 0.6 % (0.0-2.0); EOSINOPHIL # 0.1 TH/MM3 (0-0.4); EOSINOPHIL % 3.9 % (0.0-4.0); HEMATOCRIT 32.3 % (35.0-46.0); HEMO FLAGS DIFF FINAL; LYMPH % 31.4 % (9.0-44.0); LYMPHOCYTE # 1.1 TH/MM3 (1.0-4.8); MEAN CELL VOLUME 93.3 FL (80.0-100.0); MEAN CORPUSCULAR HGB CONC 33.2 % (32.0-36.0); MONO % 22.6 % (0.0-8.0); NEUT % 41.5 % (16.0-70.0); PLATELET COUNT 115 TH/MM3 (150-450); RED BLOOD COUNT 3.46 MIL/MM3 (4.00-5.30); WHITE BLOOD COUNT 3.6 TH/MM3 (4.0-11.0)
[2016-10-21 06:35] LABS: ANION GAP 9 MEQ/L (5-15); AST (GOT) 44 U/L (15-37); BICARBONATE 24.6 MEQ/L (21.0-32.0); BLOOD UREA NITROGEN 9 MG/DL (7-18); CHLORIDE 103 MEQ/L (98-107); GLOMERULAR FILTRATION RATE 76 ML/MIN (>89); POTASSIUM 3.7 MEQ/L (3.5-5.1); SODIUM (NA) 137 MEQ/L (136-145)
[2016-10-21 06:37] LABS: ALT (GPT) 33 U/L (10-53)
[2016-10-21 06:39] LABS: ALKALINE PHOSPHATASE 127 U/L (45-117); TOTAL BILIRUBIN ADULT 2.4 MG/DL (0.2-1.0)
[2016-10-21 08:00] VITALS: BP 136/63; PULSE 62; RESP 18; TEMP 97.6; O2SAT 99
[2016-10-21] MEDS: FUROSEMIDE 20 MG TAB PO SCH (09:00)
[2016-10-21] MEDS: SPIRONOLACTONE 50 MG TAB PO SCH (09:00)
--- NOTE | 2016-10-21 11:20 | RADRPT ---
EXAM DATE/TIME: 10/21/2016 09:55 This report includes an Addendum and supersedes previous reports for this exam. [facility] COMPARISON: No previous studies available for comparison. INDICATIONS : Abdominal pain, nausea and vomiting. DOSE: 4.1 mCi Tc99m Mebrofenin IV MEDICAL HISTORY : Cirrhosis. SURGICAL HISTORY : Liver stents and right bunionectomy. ENCOUNTER: Initial ACUITY: 2 days PAIN SCALE: 2/10 LOCATION: Right upper quadrant TECHNIQUE: Following the intravenous administration of radiotracer, dynamic sequential images were performed wit h continuous acquisition. FINDINGS: HEPATIC KINETICS: There is prompt uptake of radiotracer in the liver. No focal defects are seen. There is normal rate of washout from the hepatic parenchyma. BILIARY CLEARANCE: Activity is first seen in the extrahepatic biliary system at 15 minutes. There is normal excretion i nto the small bowel. GALLBLADDER: The gallbladder is not visualized.. BILIARY ENTRIC REFLUX: None observed. CONCLUSION: Proximal extraction. There is no common duct obstruction. The gallbladder is not vi sualized. Delayed imaging will be obtained. Vijay Brooke MD FACR on October 21, 2016 at 11:16 Board Certified Radiologist. This report was verified electronically. ADDENDUM: 24 hour images are obtained and demonstrate no definite activity in the gallbladder. Solis Kidd MD on October 22, 2016 at 12:09 Board Certified Radiologist. This report was verified electronically.
[2016-10-21] MEDS: ERGOCALCIFEROL (VIT D2) 50,000 UNIT CAP PO SCH (11:21)
[2016-10-21] MEDS: POTASSIUM CHLORIDE 10 MEQ CAP PO SCH (11:22)
[2016-10-21] MEDS: RIFAXIMIN 550 MG TAB PO SCH ×2 (11:22→20:11)
[2016-10-21] MEDS: METOPROLOL TARTRATE 25 MG TAB PO SCH ×2 (11:22→20:11)
[2016-10-21] MEDS: FOLIC ACID 1 MG TAB PO SCH (11:23)
[2016-10-21] MEDS: LEVOFLOXACIN 500 MG TAB PO SCH (11:23)
--- NOTE | 2016-10-21 11:30 | RADRPT ---
EXAM DATE/TIME: 10/21/2016 09:05 [facility] COMPARISON: CT ABDOMEN & PELVIS W CONTRAST, October 14, 2016, 15:06. US ABDOMEN - COMPLETE, December 01, 2015, 9:57. INDICATIONS : TIPS evaluation. MEDICAL HISTORY : Hypercholesterolemia. Cirrhosis. Hepatitis. Chest pain. Irregular heartbeat. Sleep apnea. Ulcer. Gall stones. GERD. Renal disease. Diabetes. Phlebitis. Depression. Anxiety. SURGICAL HISTORY : Tonsillectomy. Adenoidectomy. Right bunionectomy. Liver stents. ENCOUNTER: Subsequent ACUITY: > 1 year PAIN SCORE: 5/10 LOCATION: Abdomen. MEASUREMENTS: LIVER: 14.6 cm length COMMON DUCT: 3 mm RIGHT KIDNEY: 9.6 x 4.5 x 5.2 cm LEFT KIDNEY: 10.1 x 4.3 x 4.7 cm SPLEEN: 11.8 cm length AORTA: 2.1cm maximal FINDINGS: LIVER: There is diffuse increased echogenicity throughout the liver characteristic of diffuse fatty infiltra tion. No dilated biliary ducts. No evidence of ascites. There is a TIPS present which is patent. COMMON DUCT: No intraluminal mass or stone visualized. GALLBLADDER: The gallbladder is filled with stones and sludge. There is thickening of the gallbladder wall at 4 mm . No fluid is seen around the gallbladder. PANCREAS: The visualized portions are within normal limits. RIGHT KIDNEY: No hydronephrosis, stone or mass. LEFT KIDNEY: No hydronephrosis, stone or mass. SPLEEN: No focal lesion. AORTA: Non aneurysmal. IVC: Within normal limits. Status post repair of an umbilical hernia. No evidence of a hernia seen at this time. CONCLUSION: 1. Diffuse fatty infiltration the liver. This has not significantly changed compared to the prior tammy dies. 2. TIPS stent in place. The stent appears to be. 3. Gallstones in the gallbladder with thickening of the gallbladder wall at 4 mm. No definite biliary tract obstruction. Kentrell Copeland MD on October 21, 2016 at 11:23 Board Certified Radiologist. This report was verified electronically.
[2016-10-21 12:00] VITALS: BP 134/68; PULSE 57; RESP 18; TEMP 97.8; O2SAT 98
--- NOTE | 2016-10-21 12:11 | HHI.PR ---
Subjective Remarks Follow-up acute pancreatitis/questionable recurrent umbilical hernia 10/21/16-patient seen and examined, complains of umbilical pain. Denies any nausea and vomiting. Positive for nonproductive cough Objective Vitals Vital Signs Date Time Temp Pulse Resp B/P Pulse Ox O2 Delivery O2 Flow Rate FiO2 10/21/16 08:00 97.6 62 18 136/63 99 10/21/16 00:00 96.0 73 19 137/63 100 10/20/16 20:36 98.8 67 20 116/58 99 10/20/16 16:44 98.8 62 18 119/58 100 I/O 10/20/16 10/20/16 10/20/16 10/21/16 10/21/16 10/21/16 06:59 14:59 22:59 06:59 14:59 22:59 Intake Total 240 ml 240 ml 240 ml Balance 240 ml 240 ml 240 ml Intake Oral 240 ml 240 ml 240 ml IV Total 0 ml 0 ml 0 ml # Voids 2 2 2 # Bowel Movements 0 0 0 Result Diagram: 10/21/16 0446 10/21/16 0430 Imaging Last Impressions Hepatobiliary Scan Nuclear Medicine 10/21/16 0000 Signed Impressions: Service Date/Time: Friday, October 21, 2016 09:55 - CONCLUSION: Proximal extraction. There is no common duct obstruction. The gallbladder is not visualized. Delayed imaging will be obtained. Vijay Brooke MD FACR Abdomen Ultrasound 10/21/16 0000 Signed Impressions: Service Date/Time: Friday, October 21, 2016 09:05 - CONCLUSION: 1. Diffuse fatty infiltration the liver. This has not significantly changed compared to the prior studies. 2. TIPS stent in place. The stent appears to be. 3. Gallstones in the gallbladder with thickening of the gallbladder wall at 4 mm. No definite biliary tract obstruction. Kentrell Copeland MD Cholangiopancreatography MRI 10/16/16 0000 Signed Impressions: Service Date/Time: Sunday, October 16, 2016 20:50 - CONCLUSION: 1. The gallbladder is small size with no distinct gallstones identified. 2. Hepatic steatosis with TIPS catheter in place. 3. No evidence of biliary obstruction. Kota Rushing MD Abdomen/Pelvis CT 10/14/16 1249 Signed Impressions: Service Date/Time: Friday, October 14, 2016 15:06 - CONCLUSION: 1. Mild induration of the fat surrounding the pancreas suggesting mild inflammation. This could represent an acute pancreatitis. Suggest correlation with the appropriate laboratory values. 2. Severe hepatic steatosis. TIPS device is present. 3. Cholelithiasis. Jeremy Martin MD Abdomen X-Ray 10/14/16 1249 Signed Impressions: Service Date/Time: Friday, October 14, 2016 13:39 - CONCLUSION: No evidence of pneumoperitoneum Jeremy Carter MD Objective Remarks GENERAL: NAD SKIN: Warm and dry. HEAD: Normocephalic. EYES: No scleral icterus. No injection or drainage. NECK: Supple, trachea midline. No JVD or lymphadenopathy. CARDIOVASCULAR: Regular rate and rhythm without murmurs, gallops, or rubs. RESPIRATORY: Breath sounds equal bilaterally. No accessory muscle use. GASTROINTESTINAL: Abdomen soft, non-tender, nondistended. MUSCULOSKELETAL: No cyanosis, or edema. BACK: Nontender without obvious deformity. No CVA tenderness. Procedures Last Impressions Cholangiopancreatography MRI 10/16/16 0000 Signed Impressions: Service Date/Time: Sunday, October 16, 2016 20:50 - CONCLUSION: 1. The gallbladder is small size with no distinct gallstones identified. 2. Hepatic steatosis with TIPS catheter in place. 3. No evidence of biliary obstruction. Kota Rushing MD Abdomen/Pelvis CT 10/14/16 1249 Signed Impressions: Service Date/Time: Friday, October 14, 2016 15:06 - CONCLUSION: 1. Mild induration of the fat surrounding the pancreas suggesting mild inflammation. This could represent an acute pancreatitis. Suggest correlation with the appropriate laboratory values. 2. Severe hepatic steatosis. TIPS device is present. 3. Cholelithiasis. Jeremy Martin MD Abdomen X-Ray 10/14/16 1249 Signed Impressions: Service Date/Time: Friday, October 14, 2016 13:39 - CONCLUSION: No evidence of pneumoperitoneum Jeremy Carter MD A/P Problem List: (1) Acute pancreatitis ICD Code: K85.90 Status: Acute (2) Nausea & vomiting ICD Code: R11.2 Status: Acute (3) DM2 (diabetes mellitus, type 2) ICD Code: E11.9 Status: Chronic (4) Chronic kidney disease, stage III (moderate) ICD Code: N18.3 Status: Acute Assessment and Plan 61-year-old female with Acute pancreatitis. - Likely alcohol related - lipase elevated still but clinically improving- Abnormal HIDA scan 10/21/16 therefore general surgery consultation pending for evaluation for possible lap cholecystectomy Continue to monitor lipase Zofran 4 mg IV every 6 when necessary. Protonix IV MRCP results- noted GI ff ETOH withdrawal on CIWA protocol, rally pack Hypokalemia Resolved status post replacement History of tachycardia- - controlled - Continue on metoprolol home dose.- 25 mg po bid History of liver cirrhosis- status post TIPS procedure. Continue with Aldactone, Lasix Management per GI Acute on Chronic kidney insufficiency creatinine near baseline. Resolved. Urinary tract infection - positive pyuria. Urine culture negative therefore will discontinue Levaquin chronic back pain- patient now states on Lidoderm patch for low back pain PT Dilaudid when necessary Umbilical pain/recurrent umbilical hernia General surgery consultation pending teds/patient up and ambulating Problem Qualifiers (1) Acute pancreatitis: Qualified Code: K85.90 - Acute pancreatitis, unspecified complication status, unspecified pancreatitis type (2) Nausea & vomiting: Qualified Code: R11.2 - Non-intractable vomiting with nausea, unspecified vomiting type Frank Gale MD Oct 21, 2016 12:11
[2016-10-21] MEDS: BENZONATATE 100 MG CAP PO PRN ×2 (15:02→23:20)
[2016-10-21] MEDS: HYDROmorphone HCL PF 1 MG/ML VIAL IV PUSH PRN ×2 (15:03→20:01)
[2016-10-21 16:00] VITALS: BP 138/63; PULSE 63; RESP 18; TEMP 99.1; O2SAT 99
--- NOTE | 2016-10-21 16:56 | HHI.GIFU ---
Subjective Remarks Resting in bed. C/O periumbilical pain- constant dull ache with coughing or moving. States she did not have this when she woke up but after moving around, she developed the pain. No n/v. No RUQ pain. Objective Vitals I&O Vital Signs Date Time Temp Pulse Resp B/P Pulse Ox O2 Delivery O2 Flow Rate FiO2 10/21/16 12:00 97.8 57 18 134/68 98 10/21/16 08:00 97.6 62 18 136/63 99 10/21/16 00:00 96.0 73 19 137/63 100 10/20/16 20:36 98.8 67 20 116/58 99 I/O 10/20/16 10/20/16 10/20/16 10/21/16 10/21/16 10/21/16 07:00 15:00 23:00 07:00 15:00 23:00 Intake Total 240 ml 240 ml 240 ml 0 ml Balance 240 ml 240 ml 240 ml 0 ml Intake Oral 240 ml 240 ml 240 ml IV Total 0 ml 0 ml 0 ml 0 ml # Voids 2 2 2 # Bowel Movements 0 0 0 Laboratory Laboratory Tests Test 10/21/16 10/21/16 04:30 04:46 Sodium Level 137 Potassium Level 3.7 Chloride Level 103 Carbon Dioxide Level 24.6 Anion Gap 9 Blood Urea Nitrogen 9 Creatinine 0.77 Estimat Glomerular Filtration 76 Rate Random Glucose 88 Calcium Level 8.9 Total Bilirubin 2.4 Aspartate Amino Transf 44 (AST/SGOT) Alanine Aminotransferase 33 (ALT/SGPT) Alkaline Phosphatase 127 Total Protein 4.5 Albumin 2.3 Lipase 1427 White Blood Count 3.6 Red Blood Count 3.46 Hemoglobin 10.7 Hematocrit 32.3 Mean Corpuscular Volume 93.3 Mean Corpuscular Hemoglobin 31.0 Mean Corpuscular Hemoglobin 33.2 Concent Red Cell Distribution Width 20.0 Platelet Count 115 Mean Platelet Volume 7.5 Neutrophils (%) (Auto) 41.5 Lymphocytes (%) (Auto) 31.4 Monocytes (%) (Auto) 22.6 Eosinophils (%) (Auto) 3.9 Basophils (%) (Auto) 0.6 Neutrophils # (Auto) 1.5 Lymphocytes # (Auto) 1.1 Monocytes # (Auto) 0.8 Eosinophils # (Auto) 0.1 Basophils # (Auto) 0.0 CBC Comment DIFF FINAL Differential Comment Imaging Last Impressions Hepatobiliary Scan Nuclear Medicine 10/21/16 0000 Signed Impressions: Service Date/Time: Friday, October 21, 2016 09:55 - CONCLUSION: Proximal extraction. There is no common duct obstruction. The gallbladder is not visualized. Delayed imaging will be obtained. Vijay Brooke MD FACR Abdomen Ultrasound 10/21/16 0000 Signed Impressions: Service Date/Time: Friday, October 21, 2016 09:05 - CONCLUSION: 1. Diffuse fatty infiltration the liver. This has not significantly changed compared to the prior studies. 2. TIPS stent in place. The stent appears to be. 3. Gallstones in the gallbladder with thickening of the gallbladder wall at 4 mm. No definite biliary tract obstruction. Kentrell Copeland MD Cholangiopancreatography MRI 10/16/16 0000 Signed Impressions: Service Date/Time: Sunday, October 16, 2016 20:50 - CONCLUSION: 1. The gallbladder is small size with no distinct gallstones identified. 2. Hepatic steatosis with TIPS catheter in place. 3. No evidence of biliary obstruction. Kota Rushing MD Abdomen/Pelvis CT 10/14/16 1249 Signed Impressions: Service Date/Time: Friday, October 14, 2016 15:06 - CONCLUSION: 1. Mild induration of the fat surrounding the pancreas suggesting mild inflammation. This could represent an acute pancreatitis. Suggest correlation with the appropriate laboratory values. 2. Severe hepatic steatosis. TIPS device is present. 3. Cholelithiasis. Jeremy Martin MD Abdomen X-Ray 10/14/16 1249 Signed Impressions: Service Date/Time: Friday, October 14, 2016 13:39 - CONCLUSION: No evidence of pneumoperitoneum Jeremy Carter MD Physical Exam HEENT: Normocephalic; atraumatic; + jaundice. CHEST: CTA CARDIAC: RRR ABDOMEN: Soft, nondistended, periumbilical tenderness; hepatosplenomegaly; bowel sounds are present in all four quadrants. EXTREMITIES: BLE edema SKIN: Normal; no rash; no jaundice. BIN OPERATOR: No focal deficits; alert and oriented times three. Assessment and Plan Plan ASSESSMENT - Acute pancreatitis. improving. Abdomen/Pelvis CT (10/14/16)-----> Mild induration of the fat surrounding the pancreas suggesting mild inflammation. This could represent an acute pancreatitis. Suggest correlation with the appropriate laboratory values. Severe hepatic steatosis. TIPS device is present. Cholelithiasis. MRCP (10/16/16)----> The gallbladder is small size with no distinct gallstones identified. Hepatic steatosis with TIPS catheter in place. No evidence of biliary obstruction. Pt has gb, no hx of gb disease. She is on furosemide, a Class 1A drug for acute pancreatitis, but has been on this for a long time. She was positive for ETOH- 48. Pt states she had one alcoholic drink last Friday. Abdomen Ultrasound (10/21/16)----> 1. Diffuse fatty infiltration the liver. This has not significantly changed compared to the prior studies. 2. TIPS stent in place. The stent appears to be. 3. Gallstones in the gallbladder with thickening of the gallbladder wall at 4 mm. No definite biliary tract obstruction. HIDA (10/21/16)---> Proximal extraction. There is no common duct obstruction. The gallbladder is not visualized. Delayed imaging will be obtained. No RUQ pain, although persistent elevation of lipase at 1427. Will get GS evaluation for gallbladder wall thickening, abnormal HIDA and periumbilical pain. Pt states she usually sees Dr. Khan or Dr. Davis and would like to see one of them. - Elevated LFTs with liver cirrhosis secondary to ETOH/SEAY, Dx 2 years ago. Was seen at [facility], but states she did not care for them and then switched to [facility]. She was last seen 3 months ago, told she was taken off the list because her MELD score had improved. She has a TIPS, states for ascites not bleeding. ? gallbladder etiology vs. recent etoh use caused some decompensation. Lipase 1427, igg4 pending of her liver disease. On Lasix, Spironolactone at home. MELD is 12. - Umbilical pain. States periumbilical pain where she previously had incarcerated hernia repaired, dull ache worse with coughing and movement. Requesting to see Dr. Davis or Erin - Tremors (fine), Suspected ETOH w/d. DT precautions. - BLE edema, on furosemide/spironolactone at home. - ERENDIRA, improved. - UTI, per primary. PLAN: - CAROLA- low fat - Await HIDA delayed images - evaluation for abnormal imaging GB, periumbilical pain at site of previous hernia repair- requesting [facility] or [facility], as she has seen them in the past. - Cont. Xifaxan - Continue lasix - Elevate legs and MASSIEL hose. - Daily weights - DT precautions - Supportive care - Further recommendations to follow based on results of above - The pt was seen and examined by myself and Dr. Villaseñor, this note was written on her behalf. Aretha Verde Oct 21, 2016 16:56
[2016-10-21] MEDS: PANTOPRAZOLE SODIUM 40 MG VIAL IV PUSH SCH (20:00)
[2016-10-21] MEDS: SODIUM CHLORIDE 0.9% FLUSH 10 ML FLUSH IV FLUSH PRN (20:10)
[2016-10-21 20:15] VITALS: BP 107/61; PULSE 68; RESP 18; TEMP 98.9; O2SAT 96
[2016-10-21] MEDS: REMOVE OLD LIDOCAINE PATCH T-DERMAL SCH (20:16)
[2016-10-21] MEDS: LIDOCAINE HCL 5% PATCH T-DERMAL PRN (20:16)
[2016-10-21] MEDS: TEMAZEPAM 7.5 MG CAP PO PRN (23:20)
[2016-10-21 23:51] LABS: IGG SUBCLASSES 4 6.6 mg/dL (4-86)
[2016-10-22] MEDS: HYDROmorphone HCL PF 1 MG/ML VIAL IV PUSH PRN ×5 (00:11→21:31)
[2016-10-22] MEDS ORDERED: diphenhydrAMINE HCL 25 MG CAP PO ONE (00:15)
[2016-10-22 00:16] VITALS: BP 104/52; PULSE 59; RESP 17; TEMP 98; O2SAT 96
[2016-10-22] MEDS: BENZONATATE 100 MG CAP PO PRN ×3 (07:43→23:24)
[2016-10-22] MEDS: METOPROLOL TARTRATE 25 MG TAB PO SCH ×2 (07:44→21:29)
[2016-10-22] MEDS: POTASSIUM CHLORIDE 10 MEQ CAP PO SCH (07:44)
[2016-10-22] MEDS: SPIRONOLACTONE 50 MG TAB PO SCH ×2 (07:45→07:51)
[2016-10-22] MEDS: FOLIC ACID 1 MG TAB PO SCH (07:45)
[2016-10-22] MEDS: ERGOCALCIFEROL (VIT D2) 50,000 UNIT CAP PO SCH (07:45)
[2016-10-22] MEDS: RIFAXIMIN 550 MG TAB PO SCH ×2 (07:50→21:29)
[2016-10-22] MEDS: FUROSEMIDE 20 MG TAB PO SCH (07:51)
[2016-10-22 08:00] VITALS: BP 112/56; PULSE 89; RESP 20; TEMP 96; O2SAT 99
[2016-10-22] MEDS: diphenhydrAMINE HCL 25 MG CAP PO PRN ×3 (08:25→21:29)
[2016-10-22] MEDS: SODIUM CHLORIDE 0.9% FLUSH 10 ML FLUSH IV FLUSH PRN (08:26)
--- NOTE | 2016-10-22 11:05 | HHI.PR ---
Subjective Remarks Follow-up acute pancreatitis/questionable recurrent umbilical hernia 10/21/16-patient seen and examined, complains of umbilical pain. Denies any nausea and vomiting. Positive for nonproductive cough 10/22/16-patient seen and examined, no report of umbilical pain. Complains of insomnia Objective Vitals Vital Signs Date Time Temp Pulse Resp B/P Pulse Ox O2 Delivery O2 Flow Rate FiO2 10/22/16 08:56 20 10/22/16 08:00 96.0 89 20 112/56 99 10/22/16 00:16 98.0 59 17 104/52 96 10/21/16 20:15 98.9 68 18 107/61 96 10/21/16 16:00 99.1 63 18 138/63 99 10/21/16 12:00 97.8 57 18 134/68 98 I/O 10/21/16 10/21/16 10/21/16 10/22/16 10/22/16 10/22/16 07:00 15:00 23:00 07:00 15:00 23:00 Intake Total 240 ml 0 ml 360 ml 480 ml Balance 240 ml 0 ml 360 ml 480 ml Intake Oral 240 ml 360 ml 480 ml IV Total 0 ml 0 ml # Voids 2 2 3 # Bowel Movements 0 Result Diagram: 10/21/16 0446 10/21/16 0430 Imaging Last Impressions Hepatobiliary Scan Nuclear Medicine 10/21/16 0000 Signed Impressions: Service Date/Time: Friday, October 21, 2016 09:55 - CONCLUSION: Proximal extraction. There is no common duct obstruction. The gallbladder is not visualized. Delayed imaging will be obtained. Vijay Brooke MD FACR Abdomen Ultrasound 10/21/16 0000 Signed Impressions: Service Date/Time: Friday, October 21, 2016 09:05 - CONCLUSION: 1. Diffuse fatty infiltration the liver. This has not significantly changed compared to the prior studies. 2. TIPS stent in place. The stent appears to be. 3. Gallstones in the gallbladder with thickening of the gallbladder wall at 4 mm. No definite biliary tract obstruction. Kentrell Copeland MD Cholangiopancreatography MRI 10/16/16 0000 Signed Impressions: Service Date/Time: Sunday, October 16, 2016 20:50 - CONCLUSION: 1. The gallbladder is small size with no distinct gallstones identified. 2. Hepatic steatosis with TIPS catheter in place. 3. No evidence of biliary obstruction. Kota Rushing MD Abdomen/Pelvis CT 10/14/16 1249 Signed Impressions: Service Date/Time: Friday, October 14, 2016 15:06 - CONCLUSION: 1. Mild induration of the fat surrounding the pancreas suggesting mild inflammation. This could represent an acute pancreatitis. Suggest correlation with the appropriate laboratory values. 2. Severe hepatic steatosis. TIPS device is present. 3. Cholelithiasis. Jeremy Martin MD Abdomen X-Ray [id number]/14/[id number] Signed Impressions: Service Date/Time: Friday, October 14, 2016 13:39 - CONCLUSION: No evidence of pneumoperitoneum Jeremy Carter MD Objective Remarks GENERAL: NAD SKIN: Warm and dry. HEAD: Normocephalic. EYES: No scleral icterus. No injection or drainage. NECK: Supple, trachea midline. No JVD or lymphadenopathy. CARDIOVASCULAR: Regular rate and rhythm without murmurs, gallops, or rubs. RESPIRATORY: Breath sounds equal bilaterally. No accessory muscle use. GASTROINTESTINAL: Abdomen soft, non-tender, nondistended. MUSCULOSKELETAL: No cyanosis, or edema. BACK: Nontender without obvious deformity. No CVA tenderness. Procedures Last Impressions Cholangiopancreatography MRI 10/16/16 0000 Signed Impressions: Service Date/Time: Sunday, October 16, 2016 20:50 - CONCLUSION: 1. The gallbladder is small size with no distinct gallstones identified. 2. Hepatic steatosis with TIPS catheter in place. 3. No evidence of biliary obstruction. Kota Rushing MD Abdomen/Pelvis CT 10/14/16 1249 Signed Impressions: Service Date/Time: Friday, October 14, 2016 15:06 - CONCLUSION: 1. Mild induration of the fat surrounding the pancreas suggesting mild inflammation. This could represent an acute pancreatitis. Suggest correlation with the appropriate laboratory values. 2. Severe hepatic steatosis. TIPS device is present. 3. Cholelithiasis. Jeremy Martin MD Abdomen X-Ray 10/14/16 1249 Signed Impressions: Service Date/Time: Friday, October 14, 2016 13:39 - CONCLUSION: No evidence of pneumoperitoneum Jeremy Carter MD A/P Problem List: (1) Acute pancreatitis ICD Code: K85.90 Status: Acute (2) Nausea & vomiting ICD Code: R11.2 Status: Acute (3) DM2 (diabetes mellitus, type 2) ICD Code: E11.9 Status: Chronic (4) Chronic kidney disease, stage III (moderate) ICD Code: N18.3 Status: Acute Assessment and Plan 61-year-old female with Acute pancreatitis. - Likely alcohol related - lipase elevated still but clinically improving- Abnormal HIDA scan 10/21/16 therefore general surgery consultation pending for evaluation for possible lap cholecystectomy. Heading back to radiology Continue to monitor lipase Zofran 4 mg IV every 6 when necessary. Protonix IV MRCP results- noted GI ff ETOH withdrawal on CIWA protocol, rally pack Hypokalemia Resolved status post replacement History of tachycardia- - controlled - Continue on metoprolol home dose.- 25 mg po bid History of liver cirrhosis- status post TIPS procedure. Continue with Aldactone, Lasix Management per GI Acute on Chronic kidney insufficiency creatinine near baseline. Resolved. Urinary tract infection - positive pyuria. Urine culture negative ; s/p Levaquin chronic back pain- patient now states on Lidoderm patch for low back pain PT Dilaudid when necessary Umbilical pain/recurrent umbilical hernia General surgery consultation pending teds/patient up and ambulating Problem Qualifiers (1) Acute pancreatitis: Qualified Code: K85.90 - Acute pancreatitis, unspecified complication status, unspecified pancreatitis type (2) Nausea & vomiting: Qualified Code: R11.2 - Non-intractable vomiting with nausea, unspecified vomiting type Frank Gale MD Oct 22, 2016 11:05
[2016-10-22 12:00] VITALS: BP 101/53; PULSE 66; RESP 17; TEMP 98.3; O2SAT 99
[2016-10-22 16:00] VITALS: BP 101/49; PULSE 66; RESP 18; TEMP 95.6; O2SAT 100
--- NOTE | 2016-10-22 16:56 | HHI.GIFU ---
Subjective Remarks Resting in bed. Continues to have abdominal pain, periumbilical. States this radiates to her back. Objective Vitals I&O Vital Signs Date Time Temp Pulse Resp B/P Pulse Ox O2 Delivery O2 Flow Rate FiO2 10/22/16 16:00 95.6 66 18 101/49 100 10/22/16 13:02 17 10/22/16 12:00 98.3 66 17 101/53 99 10/22/16 08:00 96.0 89 20 112/56 99 10/22/16 00:16 98.0 59 17 104/52 96 10/21/16 20:15 98.9 68 18 107/61 96 I/O 10/21/16 10/21/16 10/21/16 10/22/16 10/22/16 10/22/16 07:00 15:00 23:00 07:00 15:00 23:00 Intake Total 240 ml 0 ml 360 ml 480 ml 400 ml Balance 240 ml 0 ml 360 ml 480 ml 400 ml Intake Oral 240 ml 360 ml 480 ml 400 ml IV Total 0 ml 0 ml # Voids 2 2 3 9 # Bowel Movements 0 0 Laboratory Laboratory Tests Test 10/22/16 04:27 Lipase 1100 Imaging Last Impressions Hepatobiliary Scan Nuclear Medicine 10/21/16 0000 Signed Impressions: Service Date/Time: Friday, October 21, 2016 09:55 - CONCLUSION: Proximal extraction. There is no common duct obstruction. The gallbladder is not visualized. Delayed imaging will be obtained. Vijay Brooke MD FACRADDENDUM: 24 hour images are obtained and demonstrate no definite activity in the gallbladder. Solis Kidd MD Abdomen Ultrasound 10/21/16 0000 Signed Impressions: Service Date/Time: Friday, October 21, 2016 09:05 - CONCLUSION: 1. Diffuse fatty infiltration the liver. This has not significantly changed compared to the prior studies. 2. TIPS stent in place. The stent appears to be. 3. Gallstones in the gallbladder with thickening of the gallbladder wall at 4 mm. No definite biliary tract obstruction. Kentrell Copeland MD Cholangiopancreatography MRI 10/16/16 0000 Signed Impressions: Service Date/Time: Sunday, October 16, 2016 20:50 - CONCLUSION: 1. The gallbladder is small size with no distinct gallstones identified. 2. Hepatic steatosis with TIPS catheter in place. 3. No evidence of biliary obstruction. Kota Rushing MD Abdomen/Pelvis CT 10/14/16 1249 Signed Impressions: Service Date/Time: Friday, October 14, 2016 15:06 - CONCLUSION: 1. Mild induration of the fat surrounding the pancreas suggesting mild inflammation. This could represent an acute pancreatitis. Suggest correlation with the appropriate laboratory values. 2. Severe hepatic steatosis. TIPS device is present. 3. Cholelithiasis. Jeremy Martin MD Abdomen X-Ray 10/14/16 1249 Signed Impressions: Service Date/Time: Friday, October 14, 2016 13:39 - CONCLUSION: No evidence of pneumoperitoneum Jeremy Carter MD Physical Exam HEENT: Normocephalic; atraumatic; + jaundice. CHEST: CTA CARDIAC: RRR ABDOMEN: Soft, nondistended, periumbilical tenderness; hepatosplenomegaly; bowel sounds are present in all four quadrants. EXTREMITIES: BLE edema SKIN: Normal; no rash; no jaundice. TRAINING PROFESSIONAL: No focal deficits; alert and oriented times three. Assessment and Plan Plan ASSESSMENT - Acute pancreatitis. improving. Abdomen/Pelvis CT (10/14/16)-----> Mild induration of the fat surrounding the pancreas suggesting mild inflammation. This could represent an acute pancreatitis. Suggest correlation with the appropriate laboratory values. Severe hepatic steatosis. TIPS device is present. Cholelithiasis. MRCP (10/16/16)----> The gallbladder is small size with no distinct gallstones identified. Hepatic steatosis with TIPS catheter in place. No evidence of biliary obstruction. Pt has gb, no hx of gb disease. She is on furosemide, a Class 1A drug for acute pancreatitis, but has been on this for a long time. She was positive for ETOH- 48. Pt states she had one alcoholic drink last Friday. Abdomen Ultrasound (10/21/16)----> 1. Diffuse fatty infiltration the liver. This has not significantly changed compared to the prior studies. 2. TIPS stent in place. The stent appears to be. 3. Gallstones in the gallbladder with thickening of the gallbladder wall at 4 mm. No definite biliary tract obstruction. HIDA (10/21/16)---> Proximal extraction. There is no common duct obstruction. The gallbladder is not visualized. Delayed imaging with no definite activity in the GB. US with gallstones in the gallbladder adn thickening of the gb wall at 4 mm. No definite biliary tract obstruction, TIPS stent in place, diffuse fatty infiltration of the liver. No RUQ pain, although persistent elevation of lipase at 1100 (improved today though). GS evaluation for gallbladder wall thickening, abnormal, HIDA with persistent elevated lipase and periumbilical pain- pending. Started on low fat diet, but patient refused and insisted on having regular diet with ordering lower fat food choices. She is tolerating this. She had a grilled chicken sandwich for lunch. - Elevated LFTs with liver cirrhosis secondary to ETOH/SEAY, Dx 2 years ago. Was seen at [place], but states she did not care for them and then switched to [facility]. She was last seen 3 months ago, told she was taken off the list because her MELD score had improved. She has a TIPS, states for ascites not bleeding. ? gallbladder etiology vs. recent etoh use caused some decompensation. Lipase improving 1100. IgG 4 unremarkable 6.6. On Lasix, Spironolactone, although has been refusing this intermittently here. MELD is 12. - Abn. Imaging of GB with cholelithiasis, wall thickening, and abn. hida. Persistent elevation of lipase. GS eval. pending. - Umbilical pain. States periumbilical pain where she previously had incarcerated hernia repaired, dull ache worse with coughing and movement. GS evaluation pending. - Tremors (fine), Suspected ETOH w/d. DT precautions. IMPROVED. - BLE edema, on furosemide/spironolactone, although has been refusing this at times here - ERENDIRA, improved. - UTI, per primary. PLAN: - Recommend low fat diet, patient refusing low fat diet, but ordering low fat food choices - Await GS evaluation - Cont. Lasix, Spironolactone - Cont. Xifaxan - Elevate legs and MASSIEL hose. - Daily weights - DT precautions - Supportive care - Further recommendations to follow based on results of above - The pt was seen and examined by myself and Dr. Villaseñor, this note was written on her behalf. Aretha Verde Oct 22, 2016 16:56
[2016-10-22 20:14] VITALS: BP 100/54; PULSE 66; RESP 18; TEMP 98.7; O2SAT 98
[2016-10-22] MEDS: REMOVE OLD LIDOCAINE PATCH T-DERMAL SCH (21:00)
[2016-10-22] MEDS: LIDOCAINE HCL 5% PATCH T-DERMAL PRN (21:24)
[2016-10-22] MEDS: PANTOPRAZOLE SODIUM 40 MG VIAL IV PUSH SCH (21:29)
[2016-10-22] MEDS: TEMAZEPAM 7.5 MG CAP PO PRN (21:36)
[2016-10-23 00:07] VITALS: BP 100/54; PULSE 66; RESP 17; TEMP 98.6; O2SAT 98
[2016-10-23] MEDS: diphenhydrAMINE HCL 25 MG CAP PO PRN ×4 (04:19→23:45)
[2016-10-23] MEDS: HYDROmorphone HCL PF 1 MG/ML VIAL IV PUSH PRN ×4 (04:20→21:45)
[2016-10-23] MEDS: BENZONATATE 100 MG CAP PO PRN ×3 (07:29→23:45)
[2016-10-23 08:00] VITALS: BP 97/53; PULSE 75; RESP 17; TEMP 98.3; O2SAT 97
[2016-10-23] MEDS: METOPROLOL TARTRATE 25 MG TAB PO SCH ×2 (08:29→21:00)
[2016-10-23] MEDS: POTASSIUM CHLORIDE 10 MEQ CAP PO SCH (08:30)
[2016-10-23] MEDS: RIFAXIMIN 550 MG TAB PO SCH ×2 (08:30→21:41)
[2016-10-23] MEDS: FOLIC ACID 1 MG TAB PO SCH (08:30)
[2016-10-23] MEDS: ERGOCALCIFEROL (VIT D2) 50,000 UNIT CAP PO SCH (08:30)
[2016-10-23] MEDS: SPIRONOLACTONE 50 MG TAB PO SCH (09:00)
[2016-10-23] MEDS: FUROSEMIDE 20 MG TAB PO SCH (09:00)
--- NOTE | 2016-10-23 09:29 | HHI.GIFU ---
Subjective Remarks Resting in bed. Continues to have pain surrounding her umbilicus and reports this is very tender to touch. She is not having any RUQ/Epigastric/LUQ pain or tenderness. No nausea. C/O itching. States she is very confused because she only had one alcoholic drink on 10/09 and does not know why she would have been positive on admission. States she cooks with wine and is wondering if this would make her positive. Requesting information on what diet should be on at home. Objective Vitals I&O Vital Signs Date Time Temp Pulse Resp B/P Pulse Ox O2 Delivery O2 Flow Rate FiO2 10/23/16 08:00 98.3 75 17 97/53 97 10/23/16 00:07 98.6 66 17 100/54 98 10/22/16 20:14 98.7 66 18 100/54 98 10/22/16 16:57 18 10/22/16 16:00 95.6 66 18 101/49 100 10/22/16 12:00 98.3 66 17 101/53 99 I/O 10/22/16 10/22/16 10/22/16 10/23/16 10/23/16 10/23/16 07:00 15:00 23:00 07:00 15:00 23:00 Intake Total 480 ml 400 ml 380 ml 360 ml Balance 480 ml 400 ml 380 ml 360 ml Intake Oral 480 ml 400 ml 380 ml 360 ml # Voids 3 9 2 2 # Bowel Movements 0 Laboratory Laboratory Tests Test 10/23/16 05:54 Lipase 1011 Imaging Last Impressions Hepatobiliary Scan Nuclear Medicine 10/21/16 0000 Signed Impressions: Service Date/Time: Friday, October 21, 2016 09:55 - CONCLUSION: Proximal extraction. There is no common duct obstruction. The gallbladder is not visualized. Delayed imaging will be obtained. Vijay Brooke MD FACRADDENDUM: 24 hour images are obtained and demonstrate no definite activity in the gallbladder. Solis Kidd MD Abdomen Ultrasound 10/21/16 0000 Signed Impressions: Service Date/Time: Friday, October 21, 2016 09:05 - CONCLUSION: 1. Diffuse fatty infiltration the liver. This has not significantly changed compared to the prior studies. 2. TIPS stent in place. The stent appears to be. 3. Gallstones in the gallbladder with thickening of the gallbladder wall at 4 mm. No definite biliary tract obstruction. Kentrell Copeland MD Cholangiopancreatography MRI 10/16/16 0000 Signed Impressions: Service Date/Time: Sunday, October 16, 2016 20:50 - CONCLUSION: 1. The gallbladder is small size with no distinct gallstones identified. 2. Hepatic steatosis with TIPS catheter in place. 3. No evidence of biliary obstruction. Kota Rushing MD Abdomen/Pelvis CT 10/14/16 1249 Signed Impressions: Service Date/Time: Friday, October 14, 2016 15:06 - CONCLUSION: 1. Mild induration of the fat surrounding the pancreas suggesting mild inflammation. This could represent an acute pancreatitis. Suggest correlation with the appropriate laboratory values. 2. Severe hepatic steatosis. TIPS device is present. 3. Cholelithiasis. Jeremy Martin MD Abdomen X-Ray 10/14/16 1249 Signed Impressions: Service Date/Time: Friday, October 14, 2016 13:39 - CONCLUSION: No evidence of pneumoperitoneum Jeremy Carter MD Physical Exam HEENT: Normocephalic; atraumatic; + jaundice. CHEST: CTA CARDIAC: RRR ABDOMEN: Soft, nondistended, periumbilical tenderness; hepatosplenomegaly; bowel sounds are present in all four quadrants. EXTREMITIES: BLE edema SKIN: Normal; no rash; no jaundice. BEHAVIORAL HEALTH RN: No focal deficits; alert and oriented times three. Assessment and Plan Plan ASSESSMENT - Acute pancreatitis. Abdomen/Pelvis CT (10/14/16)-----> Mild induration of the fat surrounding the pancreas suggesting mild inflammation. This could represent an acute pancreatitis. Suggest correlation with the appropriate laboratory values. Severe hepatic steatosis. TIPS device is present. Cholelithiasis. MRCP (10/16/16)----> The gallbladder is small size with no distinct gallstones identified. Hepatic steatosis with TIPS catheter in place. No evidence of biliary obstruction. Pt has gb, no hx of gb disease. She is on furosemide, a Class 1A drug for acute pancreatitis, but has been on this for a long time. She was positive for ETOH- 48. Pt states she had one alcoholic drink last Friday. Abdomen Ultrasound (10/21/16)----> 1. Diffuse fatty infiltration the liver. This has not significantly changed compared to the prior studies. 2. TIPS stent in place. The stent appears to be. 3. Gallstones in the gallbladder with thickening of the gallbladder wall at 4 mm. No definite biliary tract obstruction. HIDA (10/21/16)---> Proximal extraction. There is no common duct obstruction. The gallbladder is not visualized. Delayed imaging with no definite activity in the GB. US with gallstones in the gallbladder adn thickening of the gb wall at 4 mm. No definite biliary tract obstruction, TIPS stent in place, diffuse fatty infiltration of the liver. No RUQ pain, although persistent elevation of lipase at 1100 (improved today though). GS evaluation for gallbladder wall thickening, abnormal, HIDA with persistent elevated lipase and periumbilical pain- pending. Started on low fat diet, but patient refused and insisted on having regular diet with ordering lower fat food choices. She is tolerating this and requested information on what diet she should follow at home. Provided patient with information re: Mediterranean Diet. IgG 4 unremarkable 6.6. - Elevated LFTs with liver cirrhosis secondary to ETOH/SEAY, Dx 2 years ago. Was seen at [facility], but states she did not care for them and then switched to [facility]. She was last seen 3 months ago, told she was taken off the list because her MELD score had improved. She has a TIPS, states for ascites not bleeding. ? gallbladder etiology vs. recent etoh use caused some decompensation. Lipase slightly improved, but still elevated at 1011. On Lasix, Spironolactone, although has been refusing this intermittently here. MELD is 12. - Abn. Imaging of GB with cholelithiasis, wall thickening, and abn. hida. Persistent elevation of lipase. GS eval. pending. - Umbilical pain. States periumbilical pain where she previously had incarcerated hernia repaired, dull ache worse with coughing and movement. GS evaluation pending. - Tremors (fine), possible ETOH w/d. DT precautions. IMPROVED. Pt is adamant that she was not having withdrawal symptoms and states that she was shaking because she was cold. - BLE edema, on furosemide/spironolactone, although has been refusing this at times here - ERENDIRA, improved. - UTI, per primary. PLAN: - Recommend low fat diet, patient refusing low fat diet, but ordering low fat food choices - Pt education re: Mediterranean Diet, pt handout given - Await GS evaluation - Cont. Lasix, Spironolactone - Cont. Xifaxan - Elevate legs and MASSIEL hose. - Daily weights - DT precautions - Supportive care - Further recommendations to follow based on results of above - The pt was seen and examined by myself and Dr. Villaseñor, this note was written on her behalf. Aretha Verde Oct 23, 2016 09:29
[2016-10-23 12:00] VITALS: BP 90/53; PULSE 65; RESP 17; TEMP 98.3; O2SAT 97
--- NOTE | 2016-10-23 12:03 | HHI.PR ---
Subjective Remarks Follow-up acute pancreatitis/questionable recurrent umbilical hernia 10/21/16-patient seen and examined, complains of umbilical pain. Denies any nausea and vomiting. Positive for nonproductive cough 10/22/16-patient seen and examined, no report of umbilical pain. Complains of insomnia 10/23/16-patient seen and examined still complains of umbilical and back pain now. Case was discussed with general surgery Dr. Davis on 10/22/16 who stated patient did not need surgical repair at this point of her umbilical hernia. Objective Vitals Vital Signs Date Time Temp Pulse Resp B/P Pulse Ox O2 Delivery O2 Flow Rate FiO2 10/23/16 09:01 17 10/23/16 08:00 98.3 75 17 97/53 97 10/23/16 00:07 98.6 66 17 100/54 98 10/22/16 20:14 98.7 66 18 100/54 98 10/22/16 16:00 95.6 66 18 101/49 100 I/O 10/22/16 10/22/16 10/22/16 10/23/16 10/23/16 10/23/16 07:00 15:00 23:00 07:00 15:00 23:00 Intake Total 480 ml 400 ml 380 ml 360 ml Balance 480 ml 400 ml 380 ml 360 ml Intake Oral 480 ml 400 ml 380 ml 360 ml # Voids 3 9 2 2 # Bowel Movements 0 Result Diagram: 10/21/16 0446 10/21/16 0430 Objective Remarks GENERAL: NAD SKIN: Warm and dry. HEAD: Normocephalic. EYES: No scleral icterus. No injection or drainage. NECK: Supple, trachea midline. No JVD or lymphadenopathy. CARDIOVASCULAR: Regular rate and rhythm without murmurs, gallops, or rubs. RESPIRATORY: Breath sounds equal bilaterally. No accessory muscle use. GASTROINTESTINAL: Abdomen soft, non-tender, nondistended. MUSCULOSKELETAL: No cyanosis, or edema. BACK: Nontender without obvious deformity. No CVA tenderness. Procedures Last Impressions Cholangiopancreatography MRI 10/16/16 0000 Signed Impressions: Service Date/Time: Sunday, October 16, 2016 20:50 - CONCLUSION: 1. The gallbladder is small size with no distinct gallstones identified. 2. Hepatic steatosis with TIPS catheter in place. 3. No evidence of biliary obstruction. Kota Rushing MD Abdomen/Pelvis CT 10/14/16 1249 Signed Impressions: Service Date/Time: Friday, October 14, 2016 15:06 - CONCLUSION: 1. Mild induration of the fat surrounding the pancreas suggesting mild inflammation. This could represent an acute pancreatitis. Suggest correlation with the appropriate laboratory values. 2. Severe hepatic steatosis. TIPS device is present. 3. Cholelithiasis. Jeremy Martin MD Abdomen X-Ray 10/14/16 1249 Signed Impressions: Service Date/Time: Friday, October 14, 2016 13:39 - CONCLUSION: No evidence of pneumoperitoneum Jeremy Carter MD A/P Problem List: (1) Acute pancreatitis ICD Code: K85.90 Status: Acute (2) Nausea & vomiting ICD Code: R11.2 Status: Acute (3) DM2 (diabetes mellitus, type 2) ICD Code: E11.9 Status: Chronic (4) Chronic kidney disease, stage III (moderate) ICD Code: N18.3 Status: Acute Assessment and Plan 61-year-old female with Acute pancreatitis. - Likely alcohol related - lipase elevated still but clinically improving- Abnormal HIDA scan 10/21/16 Continue to monitor lipase Zofran 4 mg IV every 6 when necessary. Protonix IV MRCP results- noted GI ff ETOH withdrawal on CIWA protocol, rally pack Hypokalemia Resolved status post replacement History of tachycardia- - controlled - Continue on metoprolol home dose.- 25 mg po bid History of liver cirrhosis- status post TIPS procedure. Continue with Aldactone, Lasix Management per GI Acute on Chronic kidney insufficiency creatinine near baseline. Resolved. Urinary tract infection - positive pyuria. Urine culture negative ; s/p Levaquin chronic back pain- patient now states on Lidoderm patch for low back pain PT Dilaudid when necessary Umbilical pain/recurrent umbilical hernia Case discussed with Dr. Davis, general surgeon 10/22/16 and stated that at this time there was no indication for umbilical hernia repair teds/patient up and ambulating Problem Qualifiers (1) Acute pancreatitis: Qualified Code: K85.90 - Acute pancreatitis, unspecified complication status, unspecified pancreatitis type (2) Nausea & vomiting: Qualified Code: R11.2 - Non-intractable vomiting with nausea, unspecified vomiting type Frank Gale MD Oct 23, 2016 12:03
[2016-10-23] MEDS ORDERED: LIDOCAINE HCL 5% PATCH T-DERMAL SCH (13:00)
[2016-10-23] MEDS ORDERED: LIDOCAINE HCL 5% PATCH T-DERMAL ONE (13:00)
[2016-10-23 16:00] VITALS: BP 97/49; PULSE 62; RESP 18; TEMP 98; O2SAT 100
[2016-10-23 20:00] VITALS: BP 110/56; PULSE 64; RESP 20; TEMP 96.8; O2SAT 100
[2016-10-23] MEDS ORDERED: REMOVE OLD LIDOCAINE PATCH T-DERMAL SCH ×2 (21:00→23:59)
[2016-10-23] MEDS: REMOVE OLD LIDOCAINE PATCH T-DERMAL SCH (21:00)
[2016-10-23] MEDS: PANTOPRAZOLE SODIUM 40 MG VIAL IV PUSH SCH (21:40)
[2016-10-23] MEDS: TEMAZEPAM 7.5 MG CAP PO PRN (21:58)
[2016-10-23] MEDS: LIDOCAINE HCL 5% PATCH T-DERMAL PRN (22:41)
[2016-10-24] VITALS: BP 119/54; PULSE 75; RESP 20; TEMP 96.2; O2SAT 96
[2016-10-24] MEDS: HYDROmorphone HCL PF 1 MG/ML VIAL IV PUSH PRN ×3 (02:19→10:54)
[2016-10-24] MEDS: SODIUM CHLORIDE 0.9% FLUSH 10 ML FLUSH IV FLUSH PRN (02:19)
[2016-10-24 05:45] LABS: BASOPHIL # 0.1 TH/MM3 (0-0.2); BASOPHIL % 1.3 % (0.0-2.0); EOSINOPHIL # 0.1 TH/MM3 (0-0.4); EOSINOPHIL % 1.4 % (0.0-4.0); HEMATOCRIT 31.9 % (35.0-46.0); HEMO FLAGS DIFF FINAL; LYMPH % 26.2 % (9.0-44.0); LYMPHOCYTE # 1.8 TH/MM3 (1.0-4.8); MEAN CELL VOLUME 93.6 FL (80.0-100.0); MEAN CORPUSCULAR HEMOGLOBIN 30.6 PG (27.0-34.0); MEAN CORPUSCULAR HGB CONC 32.7 % (32.0-36.0); MONO % 12.6 % (0.0-8.0); NEUT % 58.5 % (16.0-70.0); PLATELET COUNT 119 TH/MM3 (150-450); RED BLOOD COUNT 3.41 MIL/MM3 (4.00-5.30); RED CELL DISTRIBUTION WIDTH 19.7 % (11.6-17.2); WHITE BLOOD COUNT 6.9 TH/MM3 (4.0-11.0)
[2016-10-24 06:02] LABS: BICARBONATE 25.1 MEQ/L (21.0-32.0)
[2016-10-24] MEDS: diphenhydrAMINE HCL 25 MG CAP PO PRN ×3 (06:41→21:38)
[2016-10-24 08:00] VITALS: BP 111/53; PULSE 80; RESP 18; TEMP 98; O2SAT 99
[2016-10-24] MEDS: POTASSIUM CHLORIDE 10 MEQ CAP PO SCH (08:54)
[2016-10-24] MEDS: BENZONATATE 100 MG CAP PO PRN ×2 (08:54→18:14)
[2016-10-24] MEDS: FOLIC ACID 1 MG TAB PO SCH (08:55)
[2016-10-24] MEDS: LIDOCAINE HCL 5% PATCH T-DERMAL PRN (08:55)
[2016-10-24] MEDS: REMOVE OLD LIDOCAINE PATCH T-DERMAL SCH (08:55)
[2016-10-24] MEDS: RIFAXIMIN 550 MG TAB PO SCH ×2 (08:57→20:14)
[2016-10-24] MEDS: ERGOCALCIFEROL (VIT D2) 50,000 UNIT CAP PO SCH (08:57)
[2016-10-24] MEDS: METOPROLOL TARTRATE 25 MG TAB PO SCH ×2 (09:00→20:13)
[2016-10-24] MEDS: SPIRONOLACTONE 50 MG TAB PO SCH (09:00)
[2016-10-24] MEDS: FUROSEMIDE 20 MG TAB PO SCH (09:00)
[2016-10-24 12:00] VITALS: BP 100/54; PULSE 72; RESP 18; TEMP 98.4; O2SAT 100
--- NOTE | 2016-10-24 12:09 | HHI.PR ---
Subjective Remarks Follow-up acute pancreatitis/questionable recurrent umbilical hernia 10/21/16-patient seen and examined, complains of umbilical pain. Denies any nausea and vomiting. Positive for nonproductive cough 10/22/16-patient seen and examined, no report of umbilical pain. Complains of insomnia 10/23/16-patient seen and examined still complains of umbilical and back pain now. Case was discussed with general surgery Dr. Davis on 10/22/16 who stated patient did not need surgical repair at this point of her umbilical hernia. 10/24/16-patient seen and examined, complaining of severe itching. Lipase trended down. Creatinine up however patient does not want any IV fluid hydration Objective Vitals Vital Signs Date Time Temp Pulse Resp B/P Pulse Ox O2 Delivery O2 Flow Rate FiO2 10/24/16 08:00 98.0 80 18 111/53 99 10/24/16 00:00 96.2 75 20 119/54 96 10/23/16 20:00 96.8 64 20 110/56 100 10/23/16 16:00 98.0 62 18 97/49 100 10/23/16 13:04 18 I/O 10/23/16 10/23/16 10/23/16 10/24/16 10/24/16 10/24/16 07:00 15:00 23:00 07:00 15:00 23:00 Intake Total 360 ml 496 ml 240 ml 320 ml Balance 360 ml 496 ml 240 ml 320 ml Intake Oral 360 ml 490 ml 240 ml 320 ml IV Total 6 ml # Voids 2 6 3 3 # Bowel Movements 2 0 0 Result Diagram: 10/24/16 0404 10/24/16 0404 Objective Remarks GENERAL: NAD SKIN: Warm and dry. HEAD: Normocephalic. EYES: No scleral icterus. No injection or drainage. NECK: Supple, trachea midline. No JVD or lymphadenopathy. CARDIOVASCULAR: Regular rate and rhythm without murmurs, gallops, or rubs. RESPIRATORY: Breath sounds equal bilaterally. No accessory muscle use. GASTROINTESTINAL: Abdomen soft, non-tender, nondistended. MUSCULOSKELETAL: No cyanosis, or edema. BACK: Nontender without obvious deformity. No CVA tenderness. Procedures Last Impressions Cholangiopancreatography MRI 10/16/16 0000 Signed Impressions: Service Date/Time: Sunday, October 16, 2016 20:50 - CONCLUSION: 1. The gallbladder is small size with no distinct gallstones identified. 2. Hepatic steatosis with TIPS catheter in place. 3. No evidence of biliary obstruction. Kota Rushing MD Abdomen/Pelvis CT 10/14/16 1249 Signed Impressions: Service Date/Time: Friday, October 14, 2016 15:06 - CONCLUSION: 1. Mild induration of the fat surrounding the pancreas suggesting mild inflammation. This could represent an acute pancreatitis. Suggest correlation with the appropriate laboratory values. 2. Severe hepatic steatosis. TIPS device is present. 3. Cholelithiasis. Jeremy Martin MD Abdomen X-Ray 10/14/169 Signed Impressions: Service Date/Time: Friday, October 14, 2016 13:39 - CONCLUSION: No evidence of pneumoperitoneum Jeremy Carter MD A/P Problem List: (1) Acute pancreatitis ICD Code: K85.90 Status: Acute (2) Nausea & vomiting ICD Code: R11.2 Status: Acute (3) DM2 (diabetes mellitus, type 2) ICD Code: E11.9 Status: Chronic (4) Chronic kidney disease, stage III (moderate) ICD Code: N18.3 Status: Acute Assessment and Plan 61-year-old female with Acute pancreatitis. - Likely alcohol related - lipase trending down Abnormal HIDA scan 10/21/16 Continue to monitor lipase Change Dilaudid to 1 mg by mouth every 6 when necessary Zofran 4 mg IV every 6 when necessary. Protonix IV MRCP results- noted GI ff ETOH withdrawal on CIWA protocol, rally pack Hypokalemia Resolved status post replacement History of tachycardia- - controlled - Continue on metoprolol home dose.- 25 mg po bid History of liver cirrhosis- status post TIPS procedure. Continue with Aldactone, Lasix however patient has been refusing her medicine Management per GI Acute on Chronic kidney insufficiency creatinine near baseline. Worsening renal function however patient does not want any IV fluid hydration Urinary tract infection - positive pyuria. Urine culture negative ; s/p Levaquin chronic back pain- patient now states on Lidoderm patch for low back pain PT Dilaudid when necessary Umbilical pain/recurrent umbilical hernia Case discussed with Dr. Davis, general surgeon 10/22/16 and stated that at this time there was no indication for umbilical hernia repair teds/patient up and ambulating Problem Qualifiers (1) Acute pancreatitis: Qualified Code: K85.90 - Acute pancreatitis, unspecified complication status, unspecified pancreatitis type (2) Nausea & vomiting: Qualified Code: R11.2 - Non-intractable vomiting with nausea, unspecified vomiting type Frank Gale MD Oct 24, 2016 12:08
[2016-10-24 16:00] VITALS: BP 109/53; PULSE 72; RESP 18; TEMP 96.4; O2SAT 98
--- NOTE | 2016-10-24 16:32 | HHI.GIFU ---
Subjective Remarks Resting in bed. States she is feeling better. States she will be discharged tomorrow and follow up with Dr. Davis as outpatient. C/O itching, but states it is from the pain meds and these are being changed. Objective Vitals I&O Vital Signs Date Time Temp Pulse Resp B/P Pulse Ox O2 Delivery O2 Flow Rate FiO2 10/24/16 12:00 98.4 72 18 100/54 100 10/24/16 08:00 98.0 80 18 111/53 99 10/24/16 00:00 96.2 75 20 119/54 96 10/23/16 20:00 96.8 64 20 110/56 100 I/O 10/23/16 10/23/16 10/23/16 10/24/16 10/24/16 10/24/16 06:59 14:59 22:59 06:59 14:59 22:59 Intake Total 360 ml 496 ml 240 ml 320 ml 600 ml Balance 360 ml 496 ml 240 ml 320 ml 600 ml Intake Oral 360 ml 490 ml 240 ml 320 ml 600 ml IV Total 6 ml # Voids 2 6 3 3 15 # Bowel Movements 2 0 0 1 Laboratory Laboratory Tests Test 10/24/16 04:04 White Blood Count 6.9 Red Blood Count 3.41 Hemoglobin 10.4 Hematocrit 31.9 Mean Corpuscular Volume 93.6 Mean Corpuscular Hemoglobin 30.6 Mean Corpuscular Hemoglobin 32.7 Concent Red Cell Distribution Width 19.7 Platelet Count 119 Mean Platelet Volume 7.3 Neutrophils (%) (Auto) 58.5 Lymphocytes (%) (Auto) 26.2 Monocytes (%) (Auto) 12.6 Eosinophils (%) (Auto) 1.4 Basophils (%) (Auto) 1.3 Neutrophils # (Auto) 4.0 Lymphocytes # (Auto) 1.8 Monocytes # (Auto) 0.9 Eosinophils # (Auto) 0.1 Basophils # (Auto) 0.1 CBC Comment DIFF FINAL Differential Comment Sodium Level 132 Potassium Level 4.0 Chloride Level 97 Carbon Dioxide Level 25.1 Anion Gap 10 Blood Urea Nitrogen 22 Creatinine 2.18 Estimat Glomerular Filtration 23 Rate Random Glucose 85 Calcium Level 8.6 Lipase 652 Imaging Last Impressions Hepatobiliary Scan Nuclear Medicine 10/21/16 0000 Signed Impressions: Service Date/Time: Friday, October 21, 2016 09:55 - CONCLUSION: Proximal extraction. There is no common duct obstruction. The gallbladder is not visualized. Delayed imaging will be obtained. Vijay Brooke MD FACRADDENDUM: 24 hour images are obtained and demonstrate no definite activity in the gallbladder. Solis Kidd MD Abdomen Ultrasound 10/21/16 0000 Signed Impressions: Service Date/Time: Friday, October 21, 2016 09:05 - CONCLUSION: 1. Diffuse fatty infiltration the liver. This has not significantly changed compared to the prior studies. 2. TIPS stent in place. The stent appears to be. 3. Gallstones in the gallbladder with thickening of the gallbladder wall at 4 mm. No definite biliary tract obstruction. Kentrell Copeland MD Cholangiopancreatography MRI 10/16/16 0000 Signed Impressions: Service Date/Time: Sunday, October 16, 2016 20:50 - CONCLUSION: 1. The gallbladder is small size with no distinct gallstones identified. 2. Hepatic steatosis with TIPS catheter in place. 3. No evidence of biliary obstruction. Kota Rushing MD Abdomen/Pelvis CT 10/14/16 1249 Signed Impressions: Service Date/Time: Friday, October 14, 2016 15:06 - CONCLUSION: 1. Mild induration of the fat surrounding the pancreas suggesting mild inflammation. This could represent an acute pancreatitis. Suggest correlation with the appropriate laboratory values. 2. Severe hepatic steatosis. TIPS device is present. 3. Cholelithiasis. Jeermy Martin MD Abdomen X-Ray 10/14/16 1249 Signed Impressions: Service Date/Time: Friday, October 14, 2016 13:39 - CONCLUSION: No evidence of pneumoperitoneum Jeremy Carter MD Physical Exam HEENT: Normocephalic; atraumatic; + jaundice. CHEST: CTA CARDIAC: RRR ABDOMEN: Soft, nondistended, periumbilical tenderness; hepatosplenomegaly; bowel sounds are present in all four quadrants. EXTREMITIES: BLE edema SKIN: Normal; no rash; no jaundice. PROCESS DEVELOPMENT TECHNICIAN: No focal deficits; alert and oriented times three. Assessment and Plan Plan ASSESSMENT - Acute pancreatitis. Abdomen/Pelvis CT (10/14/16)-----> Mild induration of the fat surrounding the pancreas suggesting mild inflammation. This could represent an acute pancreatitis. Suggest correlation with the appropriate laboratory values. Severe hepatic steatosis. TIPS device is present. Cholelithiasis. MRCP (10/16/16)----> The gallbladder is small size with no distinct gallstones identified. Hepatic steatosis with TIPS catheter in place. No evidence of biliary obstruction. Pt has gb, no hx of gb disease. She is on furosemide, a Class 1A drug for acute pancreatitis, but has been on this for a long time. She was positive for ETOH- 48. Pt states she had one alcoholic drink last Friday. Abdomen Ultrasound (10/21/16)----> 1. Diffuse fatty infiltration the liver. This has not significantly changed compared to the prior studies. 2. TIPS stent in place. The stent appears to be. 3. Gallstones in the gallbladder with thickening of the gallbladder wall at 4 mm. No definite biliary tract obstruction. HIDA (10/21/16)---> Proximal extraction. There is no common duct obstruction. The gallbladder is not visualized. Delayed imaging with no definite activity in the GB. US with gallstones in the gallbladder adn thickening of the gb wall at 4 mm. No definite biliary tract obstruction, TIPS stent in place, diffuse fatty infiltration of the liver. Pt will fu with as outpatient for evaluation for gallbladder wall thickening , abnormal HIDA with persistent elevated lipase and periumbilical pain- pending. Started on low fat diet, but patient refused and insisted on having regular diet with ordering lower fat food choices. She is tolerating this and requested information on what diet she should follow at home. Provided patient with information re: Mediterranean Diet. IgG 4 unremarkable 6.6. Lipase improved 652. Pain improved. - Elevated LFTs with liver cirrhosis secondary to ETOH/SEAY, Dx 2 years ago. Was seen at [facility], but states she did not care for them and then switched to [facility]. She was last seen 3 months ago, told she was taken off the list because her MELD score had improved. She has a TIPS, states for ascites not bleeding. ? gallbladder etiology vs. recent etoh use caused some decompensation. Lipase slightly improved, but still elevated at 1011. On Lasix, Spironolactone, although has been refusing this intermittently here. MELD is 12. - Abn. Imaging of GB with cholelithiasis, wall thickening, and abn. hida. Persistent elevation of lipase. GS eval. as outpatient. - Umbilical pain. States periumbilical pain where she previously had incarcerated hernia repaired, dull ache worse with coughing and movement. evaluation as outpatient. - ERENDIRA, Creat 2.18, BMP in am. - Tremors (fine), possible ETOH w/d. DT precautions. IMPROVED. Pt is adamant that she was not having withdrawal symptoms and states that she was shaking because she was cold. - BLE edema, on furosemide/spironolactone, although has been refusing this at times here - ERENDIRA, improved. - UTI, per primary. PLAN: - Recommend low fat diet, patient refusing low fat diet, but ordering low fat food choices - Pt education re: Mediterranean Diet, pt handout given - Cont. Lasix, Spironolactone - Cont. Xifaxan - No ETOH - FU HOWARD 2 weeks - Supportive care - Further recommendations to follow based on results of above - The pt was seen and examined by myself and Dr. Villaseñor, this note was written on her behalf. Aretha Verde Oct 24, 2016 16:32
[2016-10-24] MEDS ORDERED: HYDROmorphone HCL 2 MG TAB PO PRN (17:00)
[2016-10-24 20:00] VITALS: BP 105/51; PULSE 77; RESP 18; TEMP 96.8; O2SAT 97
[2016-10-24] MEDS: PANTOPRAZOLE SODIUM 40 MG VIAL IV PUSH SCH (20:14)
[2016-10-24] MEDS: TEMAZEPAM 7.5 MG CAP PO PRN (21:38)
[2016-10-25] VITALS: BP 121/57; PULSE 87; RESP 18; TEMP 98; O2SAT 96
[2016-10-25 08:00] VITALS: BP 119/54; PULSE 71; RESP 18; TEMP 97.5; O2SAT 99
[2016-10-25] MEDS: METOPROLOL TARTRATE 25 MG TAB PO SCH (08:44)
[2016-10-25] MEDS: FUROSEMIDE 20 MG TAB PO SCH (08:44)
[2016-10-25] MEDS: SPIRONOLACTONE 50 MG TAB PO SCH (08:44)
[2016-10-25] MEDS: ERGOCALCIFEROL (VIT D2) 50,000 UNIT CAP PO SCH (08:45)
[2016-10-25] MEDS: FOLIC ACID 1 MG TAB PO SCH (08:45)
[2016-10-25] MEDS: BENZONATATE 100 MG CAP PO PRN (08:45)
[2016-10-25] MEDS: diphenhydrAMINE HCL 25 MG CAP PO PRN (08:45)
[2016-10-25] MEDS: POTASSIUM CHLORIDE 10 MEQ CAP PO SCH (08:45)
[2016-10-25] MEDS: RIFAXIMIN 550 MG TAB PO SCH (08:45)
--- NOTE | 2016-10-25 10:21 | HHI.GIFU ---
Subjective Remarks Sitting up on side of bed eating breakfast. She denies n/v. She states she is voiding well. Mild periumbilical pain. She refused to have BMP drawn. States that she is going home and not having any more labs drawn prior to discharge. D /W patient the rationale for repeating BMP, explaining that her creatinine went from normal to elevated yesterday. She verbalizes understanding, but still refusing- states that she will not have any further labs drawn until Friday. Objective Vitals I&O Vital Signs Date Time Temp Pulse Resp B/P Pulse Ox O2 Delivery O2 Flow Rate FiO2 10/25/16 08:00 97.5 71 18 119/54 99 10/25/16 00:00 98.0 87 18 121/57 96 10/24/16 20:00 96.8 77 18 105/51 97 10/24/16 16:00 96.4 72 18 109/53 98 10/24/16 12:00 98.4 72 18 100/54 100 I/O 10/24/16 10/24/16 10/24/16 10/25/16 10/25/16 10/25/16 07:00 15:00 23:00 07:00 15:00 23:00 Intake Total 320 ml 600 ml 320 ml 320 ml Balance 320 ml 600 ml 320 ml 320 ml Intake Oral 320 ml 600 ml 320 ml 320 ml # Voids 3 15 3 3 # Bowel Movements 0 1 0 0 Imaging Last Impressions Hepatobiliary Scan Nuclear Medicine 10/21/16 0000 Signed Impressions: Service Date/Time: Friday, October 21, 2016 09:55 - CONCLUSION: Proximal extraction. There is no common duct obstruction. The gallbladder is not visualized. Delayed imaging will be obtained. Vijay Brooke MD FACRADDENDUM: 24 hour images are obtained and demonstrate no definite activity in the gallbladder. Solis Kidd MD Abdomen Ultrasound 10/21/16 0000 Signed Impressions: Service Date/Time: Friday, October 21, 2016 09:05 - CONCLUSION: 1. Diffuse fatty infiltration the liver. This has not significantly changed compared to the prior studies. 2. TIPS stent in place. The stent appears to be. 3. Gallstones in the gallbladder with thickening of the gallbladder wall at 4 mm. No definite biliary tract obstruction. Kentrell Copeland MD Cholangiopancreatography MRI 10/16/16 0000 Signed Impressions: Service Date/Time: Sunday, October 16, 2016 20:50 - CONCLUSION: 1. The gallbladder is small size with no distinct gallstones identified. 2. Hepatic steatosis with TIPS catheter in place. 3. No evidence of biliary obstruction. Kota Rushing MD Abdomen/Pelvis CT 10/14/16 1249 Signed Impressions: Service Date/Time: Friday, October 14, 2016 15:06 - CONCLUSION: 1. Mild induration of the fat surrounding the pancreas suggesting mild inflammation. This could represent an acute pancreatitis. Suggest correlation with the appropriate laboratory values. 2. Severe hepatic steatosis. TIPS device is present. 3. Cholelithiasis. Jeremy Martin MD Abdomen X-Ray 10/14/16 1249 Signed Impressions: Service Date/Time: Friday, October 14, 2016 13:39 - CONCLUSION: No evidence of pneumoperitoneum Jeremy Carter MD Physical Exam HEENT: Normocephalic; atraumatic; + jaundice. CHEST: CTA CARDIAC: RRR ABDOMEN: Soft, nondistended, periumbilical tenderness; hepatosplenomegaly; bowel sounds are present in all four quadrants. EXTREMITIES: BLE edema SKIN: Normal; no rash; no jaundice. OPTICAL MANUFACTURING TECHNICIAN: No focal deficits; alert and oriented times three. Assessment and Plan Plan ASSESSMENT - Acute pancreatitis. Abdomen/Pelvis CT (10/14/16)-----> Mild induration of the fat surrounding the pancreas suggesting mild inflammation. This could represent an acute pancreatitis. Suggest correlation with the appropriate laboratory values. Severe hepatic steatosis. TIPS device is present. Cholelithiasis. MRCP (10/16/16)----> The gallbladder is small size with no distinct gallstones identified. Hepatic steatosis with TIPS catheter in place. No evidence of biliary obstruction. Pt has gb, no hx of gb disease. She is on furosemide, a Class 1A drug for acute pancreatitis, but has been on this for a long time. She was positive for ETOH- 48. Pt states she had one alcoholic drink last Friday. Abdomen Ultrasound (10/21/16)----> 1. Diffuse fatty infiltration the liver. This has not significantly changed compared to the prior studies. 2. TIPS stent in place. The stent appears to be. 3. Gallstones in the gallbladder with thickening of the gallbladder wall at 4 mm. No definite biliary tract obstruction. HIDA (10/21/16)---> Proximal extraction. There is no common duct obstruction. The gallbladder is not visualized. Delayed imaging with no definite activity in the GB. US with gallstones in the gallbladder adn thickening of the gb wall at 4 mm. No definite biliary tract obstruction, TIPS stent in place, diffuse fatty infiltration of the liver. Pt will fu with as outpatient for evaluation for gallbladder wall thickening , abnormal HIDA with persistent elevated lipase and periumbilical pain- pending. Started on low fat diet, but patient refused and insisted on having regular diet with ordering lower fat food choices. She is tolerating this and requested information on what diet she should follow at home. Provided patient with information re: Mediterranean Diet. IgG 4 unremarkable 6.6. Lipase improved 652 yesterday. Refusing labs today. Pain has improved, no n/v. Tolerating diet. Insists that she is going home today and not having any further labs drawn until Friday as outpatient. - Elevated LFTs with liver cirrhosis secondary to ETOH/SEAY, Dx 2 years ago. Was seen at [place], but states she did not care for them and then switched to [facility]. She was last seen 3 months ago, told she was taken off the list because her MELD score had improved. She has a TIPS, states for ascites not bleeding. ? gallbladder etiology vs. recent etoh use caused some decompensation. Lipase slightly improved, but still elevated at 1011. On Lasix, Spironolactone, although has been refusing here and therefore not getting these. MELD is 12. - Abn. Imaging of GB with cholelithiasis, wall thickening, and abn. hida. Persistent elevation of lipase. eval. as outpatient. - Umbilical pain. States periumbilical pain where she previously had incarcerated hernia repaired, dull ache worse with coughing and movement. evaluation as outpatient. - ERENDIRA, Creat 2.18, Refusing BMP despite long discussion. - Tremors (fine), possible ETOH w/d. DT precautions. IMPROVED. Pt is adamant that she was not having withdrawal symptoms and states that she was shaking because she was cold. - BLE edema, on furosemide/spironolactone, although has been refusing this at times here - ERENDIRA, improved. - UTI, per primary. PLAN: - Low fat diet, low sodium diet - Diuretics per attending's recommendations, given her ERENDIRA - Cont. Xifaxan - No ETOH - CMP, CBC, Lipase in 3-5 days- d/w patient and she is agreeable - FU HOWARD 2 weeks - The pt was seen and examined by myself and Dr. Villaseñor, this note was written on her behalf. Aretha Verde Oct 25, 2016 10:21
--- NOTE | 2016-10-25 11:15 | HHI.PR ---
Subjective Remarks Follow-up acute pancreatitis/questionable recurrent umbilical hernia 10/21/16-patient seen and examined, complains of umbilical pain. Denies any nausea and vomiting. Positive for nonproductive cough 10/22/16-patient seen and examined, no report of umbilical pain. Complains of insomnia 10/23/16-patient seen and examined still complains of umbilical and back pain now. Case was discussed with general surgery Dr. Davis on 10/22/16 who stated patient did not need surgical repair at this point of her umbilical hernia. 10/24/16-patient seen and examined, complaining of severe itching. Lipase trended down. Creatinine up however patient does not want any IV fluid hydration 10/25/16-patient seen and examined, still has some periumbilical pain. Patient has refused labs drawn this morning. She does have bilateral lower extremity edema and states it's usual for her. Patient only took Aldactone and she refused Lasix Objective Vitals Vital Signs Date Time Temp Pulse Resp B/P Pulse Ox O2 Delivery O2 Flow Rate FiO2 10/25/16 08:00 97.5 71 18 119/54 99 10/25/16 00:00 98.0 87 18 121/57 96 10/24/16 20:00 96.8 77 18 105/51 97 10/24/16 16:00 96.4 72 18 109/53 98 10/24/16 12:00 98.4 72 18 100/54 100 I/O 10/24/16 10/24/16 10/24/16 10/25/16 10/25/16 10/25/16 07:00 15:00 23:00 07:00 15:00 23:00 Intake Total 320 ml 600 ml 320 ml 320 ml Balance 320 ml 600 ml 320 ml 320 ml Intake Oral 320 ml 600 ml 320 ml 320 ml # Voids 3 15 3 3 # Bowel Movements 0 1 0 0 Result Diagram: 10/24/16 0404 10/24/16 0404 Objective Remarks GENERAL: NAD SKIN: Warm and dry. HEAD: Normocephalic. EYES: No scleral icterus. No injection or drainage. NECK: Supple, trachea midline. No JVD or lymphadenopathy. CARDIOVASCULAR: Regular rate and rhythm without murmurs, gallops, or rubs. RESPIRATORY: Breath sounds equal bilaterally. No accessory muscle use. GASTROINTESTINAL: Abdomen soft, non-tender, nondistended. MUSCULOSKELETAL: No cyanosis,+1 BLE edema. BACK: Nontender without obvious deformity. No CVA tenderness. Procedures Last Impressions Cholangiopancreatography MRI 10/16/16 0000 Signed Impressions: Service Date/Time: Sunday, October 16, 2016 20:50 - CONCLUSION: 1. The gallbladder is small size with no distinct gallstones identified. 2. Hepatic steatosis with TIPS catheter in place. 3. No evidence of biliary obstruction. Kota Rushing MD Abdomen/Pelvis CT 10/14/16 1249 Signed Impressions: Service Date/Time: Friday, October 14, 2016 15:06 - CONCLUSION: 1. Mild induration of the fat surrounding the pancreas suggesting mild inflammation. This could represent an acute pancreatitis. Suggest correlation with the appropriate laboratory values. 2. Severe hepatic steatosis. TIPS device is present. 3. Cholelithiasis. Jeremy Martin MD Abdomen X-Ray 10/14/16 1249 Signed Impressions: Service Date/Time: Friday, October 14, 2016 13:39 - CONCLUSION: No evidence of pneumoperitoneum Jeremy Carter MD A/P Problem List: (1) Acute pancreatitis ICD Code: K85.90 Status: Acute (2) Nausea & vomiting ICD Code: R11.2 Status: Acute (3) DM2 (diabetes mellitus, type 2) ICD Code: E11.9 Status: Chronic (4) Chronic kidney disease, stage III (moderate) ICD Code: N18.3 Status: Acute Assessment and Plan 61-year-old female with Acute pancreatitis. - Likely alcohol related - lipase trending down Abnormal HIDA scan 10/21/16 Continue to monitor lipase on Dilaudid 1 mg by mouth every 6 when necessary Zofran 4 mg IV every 6 when necessary. Protonix IV MRCP results- noted GI ff ETOH withdrawal on CIWA protocol, rally pack Hypokalemia Resolved status post replacement History of tachycardia- - controlled - Continue on metoprolol home dose.- 25 mg po bid History of liver cirrhosis- status post TIPS procedure. Continue with Aldactone, Lasix however patient has been refusing her medicine Management per GI Acute on Chronic kidney insufficiency creatinine near baseline. Worsening renal function however patient does not want any IV fluid hydration. She did not want any labs drawn this morning Urinary tract infection - positive pyuria. Urine culture negative ; s/p Levaquin chronic back pain- patient now states on Lidoderm patch for low back pain PT Dilaudid when necessary Umbilical pain/recurrent umbilical hernia Case discussed with Dr. Davis, general surgeon 10/22/16 and stated that at this time there was no indication for umbilical hernia repair teds/patient up and ambulating Problem Qualifiers (1) Acute pancreatitis: Qualified Code: K85.90 - Acute pancreatitis, unspecified complication status, unspecified pancreatitis type (2) Nausea & vomiting: Qualified Code: R11.2 - Non-intractable vomiting with nausea, unspecified vomiting type Frank Gale MD Oct 25, 2016 11:15
--- NOTE | 2016-10-25 11:24 | HHI.DS ---
Discharge Summary Admission Date Oct 14, 2016 at 16:33 Discharge Date: Oct 25, 2016 Admitting Diagnosis acute pancreatitis; transaminitis; nausea, vomiting, diarrhea (1) Acute pancreatitis ICD Code: K85.90 (2) Nausea & vomiting ICD Code: R11.2 (3) DM2 (diabetes mellitus, type 2) ICD Code: E11.9 (4) Chronic kidney disease, stage III (moderate) ICD Code: N18.3 Procedures Last Impressions Cholangiopancreatography MRI 10/16/16 0000 Signed Impressions: Service Date/Time: Sunday, October 16, 2016 20:50 - CONCLUSION: 1. The gallbladder is small size with no distinct gallstones identified. 2. Hepatic steatosis with TIPS catheter in place. 3. No evidence of biliary obstruction. Kota Rushing MD Abdomen/Pelvis CT 10/14/16 1249 Signed Impressions: Service Date/Time: Friday, October 14, 2016 15:06 - CONCLUSION: 1. Mild induration of the fat surrounding the pancreas suggesting mild inflammation. This could represent an acute pancreatitis. Suggest correlation with the appropriate laboratory values. 2. Severe hepatic steatosis. TIPS device is present. 3. Cholelithiasis. Jeremy Martin MD Abdomen X-Ray 10/14/16 1249 Signed Impressions: Service Date/Time: Friday, October 14, 2016 13:39 - CONCLUSION: No evidence of pneumoperitoneum Jeremy Carter MD Brief History - From Admission Patient is a very pleasant 61-year-old female with history of liver cirrhosis who about a week prior to admission had a drink of vodka. 3-4 days prior to admission patient started complaining of increased nausea and vomiting unable to hold down anything associated with loose stools around 3-4 times per day. Persistence prompted consult to ER and on evaluation was noted to have an elevated lipase and patient was admitted for further evaluation and management. Patient with history of SEAY ff by Dr. Germain at one point was on the transplant list but was taken off as she had improved a lot. States history of anxiety disorder and depression. denies any suicidal ideations CBC/BMP: 10/24/16 0404 10/24/16 0404 Significant Findings Laboratory Tests Test 10/23/16 10/24/16 05:54 04:04 Lipase 1011 U/L 652 U/L (73-393) (73-393) Red Blood Count 3.41 MIL/MM3 (4.00-5.30) Hemoglobin 10.4 GM/DL (11.6-15.3) Hematocrit 31.9 % (35.0-46.0) Red Cell Distribution Width 19.7 % (11.6-17.2) Platelet Count 119 TH/MM3 (150-450) Monocytes (%) (Auto) 12.6 % (0.0-8.0) Sodium Level 132 MEQ/L (136-145) Chloride Level 97 MEQ/L (98-107) Blood Urea Nitrogen 22 MG/DL (7-18) Creatinine 2.18 MG/DL (0.50-1.00) Estimat Glomerular Filtration 23 ML/MIN (>89) Rate Imaging Last Impressions Hepatobiliary Scan Nuclear Medicine 10/21/16 0000 Signed Impressions: Service Date/Time: Friday, October 21, 2016 09:55 - CONCLUSION: Proximal extraction. There is no common duct obstruction. The gallbladder is not visualized. Delayed imaging will be obtained. Vijay Brooke MD FACRADDENDU: 24 hour images are obtained and demonstrate no definite activity in the gallbladder. Solis Kidd MD Abdomen Ultrasound 10/21/16 0000 Signed Impressions: Service Date/Time: Friday, October 21, 2016 09:05 - CONCLUSION: 1. Diffuse fatty infiltration the liver. This has not significantly changed compared to the prior studies. 2. TIPS stent in place. The stent appears to be. 3. Gallstones in the gallbladder with thickening of the gallbladder wall at 4 mm. No definite biliary tract obstruction. Kentrell Copeland MD Cholangiopancreatography MRI 10/16/16 0000 Signed Impressions: Service Date/Time: Sunday, October 16, 2016 20:50 - CONCLUSION: 1. The gallbladder is small size with no distinct gallstones identified. 2. Hepatic steatosis with TIPS catheter in place. 3. No evidence of biliary obstruction. Kota Rushing MD Abdomen/Pelvis CT 10/14/16 1249 Signed Impressions: Service Date/Time: Friday, October 14, 2016 15:06 - CONCLUSION: 1. Mild induration of the fat surrounding the pancreas suggesting mild inflammation. This could represent an acute pancreatitis. Suggest correlation with the appropriate laboratory values. 2. Severe hepatic steatosis. TIPS device is present. 3. Cholelithiasis. Jeremy Martin MD Abdomen X-Ray 10/14/16 1249 Signed Impressions: Service Date/Time: Friday, October 14, 2016 13:39 - CONCLUSION: No evidence of pneumoperitoneum Jeremy Carter MD PE at Discharge GENERAL: NAD SKIN: Warm and dry. HEAD: Normocephalic. EYES: No scleral icterus. No injection or drainage. NECK: Supple, trachea midline. No JVD or lymphadenopathy. CARDIOVASCULAR: Regular rate and rhythm without murmurs, gallops, or rubs. RESPIRATORY: Breath sounds equal bilaterally. No accessory muscle use. GASTROINTESTINAL: Abdomen soft, non-tender, nondistended. MUSCULOSKELETAL: No cyanosis,+1 BLE edema. BACK: Nontender without obvious deformity. No CVA tenderness. Hospital Course Patient was admitted secondary to acute pancreatitis for which gastroenterology was consulted and she had abnormal HIDA scan followed by MRCP. She was managed conservatively with monitoring of lipase with pain management accordingly. Secondary to beta umbilical pain, case was discussed with Dr. Davis general surgeons however patient was deemed not to be at a time a surgical candidate. ALICIA Narvaez protocol were initiated due to patient history of alcohol abuse. She was treated and responded well with antibiotic for UTI. Due to her history of cirrhosis and TIPS patient was on Aldactone and Lasix however patient refused her medications. Due to worsening renal function IV fluid hydration was advised however patient refused. She was continued on her treatment for other chronic medical conditions Pt Condition on Discharge: Stable Discharge Disposition: Discharge Home Discharge Time: > 30 minutes Discharge Instructions DIET: Follow Instructions for: Heart Healthy Diet Activities you can perform: Regular-No Restrictions Follow up Referrals: Gastroenterology - 2 Weeks @ [facility] PCP Follow-up - 1 Week Continued Medications: Ergocalciferol (Ergocalciferol) 50,000 Unit Cap 59077 UNITS PO 3 TIMES A WEEK Nutritional Supplement #30 Ref 0 CAP Fluticasone Nasal [place] (Flonase Nasal [place]) 50 Mcg/Act [place] 1 SPR EACH NARE DAILY Allergies #1 Ref 0 BOTTLE Folic Acid (Folic Acid) 1 Mg Tablet 1 MG PO DAILY Furosemide (Furosemide) 20 Mg Tab Unknown Dose PO DAILY #60 Ref 0 TAB Lidocaine Patch 12 HR (Lidocaine Patch 12 HR) 5 % Patch 1 PATCH TOPICAL DAILY Remove patch after 12 hours PRN PAIN Ref 0 BOX Metoprolol Tartrate (Metoprolol Tartrate) 25 Mg Tab 25 MG PO BID Ref 0 TAB Multiple Vitamins W/ Minerals (Multi Vitamin and Mineral) 1 Tab Tab 1 TAB PO DAILY Ondansetron (Zofran) 4 Mg Tab 4 MG PO Q6HR PRN NAUSEA OR VOMITING Ref 0 TAB Potassium Chloride ER (Potassium Chloride ER) 8 Meq Cap 8 MEQ PO DAILY Electrolyte Replacement #60 Ref 0 CAP Rifaximin (Xifaxan) 550 Mg Tab 550 MG PO DAILY Hepatic encephalopathy #60 Ref 0 TAB Spironolactone (Spironolactone) 25 Mg Tab Unknown Dose PO DAILY Ref 0 TAB Frank Gale MD Oct 25, 2016 11:24
[2016-10-25 12:00] VITALS: BP 130/60; PULSE 92; RESP 17; TEMP 97.7; O2SAT 97
== END 2016-10-25 15:30 | disposition home or self-care (01) | DRG 439 ==
LOC: NEPC 11:41 → NEDA 16:33 → N07A 18:28
PROVIDERS: ADMIT Hospitalist; ATTEND Hospitalist
DX: K85.20 Alcohol induced acute pancreatitis without necrosis or infection (principal); N39.0 Urinary tract infection, site not specified; N17.9 Acute kidney failure, unspecified; E11.22 Type 2 diabetes mellitus with diabetic chronic kidney disease; K70.31 Alcoholic cirrhosis of liver with ascites; N18.3 Chronic kidney disease, stage 3 (moderate); F10.239 Alcohol dependence with withdrawal, unspecified; F41.9 Anxiety disorder, unspecified; K21.9 Gastro-esophageal reflux disease without esophagitis; I12.9 Hypertensive chronic kidney disease with stage 1 through stage 4 chronic kidney disease, or unspecified chronic kidney disease; G47.30 Sleep apnea, unspecified; K75.81 Nonalcoholic steatohepatitis (NASH); G89.29 Other chronic pain; M54.5 Low back pain; K80.20 Calculus of gallbladder without cholecystitis without obstruction; R60.0 Localized edema; E87.6 Hypokalemia; G47.00 Insomnia, unspecified; K42.9 Umbilical hernia without obstruction or gangrene; Y90.2 Blood alcohol level of 40-59 mg/100 ml; Z79.84 Long term (current) use of oral hypoglycemic drugs; Z91.040 Latex allergy status; Z98.84 Bariatric surgery status
CPT/HCPCS: 74000; 74177; 74181; 76377; 76700; 76937; 78226; 80048; 80053; 80076; 80307; 81001; 82140; 82784; 82787; 82977; 83690; 84478; 85025; 85610; 85730; 87086; 93005; 96374; A9537; C9113; J1170; J1956; J2060; J2405; J2765; J3480; J7030; J7042; Q9963; Q9967

== ENCOUNTER 2017-12-01 13:19 | Inpatient (IN) ==
[2017-12-01] MEDS ORDERED: LORazepam 0.5 MG Tablet PO PRN (18:46)
[2017-12-01] MEDS ORDERED: Dextrose 50% in Water 50 ML Vial IV.PUSH PRN (18:49)
[2017-12-01] MEDS ORDERED: Vancomycin Consult Pharmacy 1 EACH OTHER SCH (19:00)
[2017-12-01 19:57] LABS: Baso % (Auto) 0.7 % (0.0-2.0); Eos # (Auto) 0.1 th/mm3 (0.0-0.4); Eos % (Auto) 1.5 % (0.0-4.0); Hematocrit 30.8 % (35.0-46.0); Hemoglobin 10.2 gm/dL (11.6-15.3); Lymph # (Auto) 0.7 th/mm3 (1.0-4.8); Lymph % (Auto) 10.2 % (9.0-44.0); Mean Corpuscular HGB Conc 33.3 % (32.0-36.0); Mean Corpuscular Hemoglobin 32.9 pg (27.0-34.0); Mean Corpuscular Volume 98.9 fL (80.0-100.0); Mono # (Auto) 0.3 th/mm3 (0.0-0.9); Mono % (Auto) 5.2 % (0.0-8.0); Neut # (Auto) 5.5 th/mm3 (1.8-7.7); Neut % (Auto) 82.4 % (16.0-70.0); Platelet Count 221 th/mm3 (150-450); Red Blood Count 3.11 mil/mm3 (4.00-5.30); Red Cell Distribution Width 16.9 % (11.6-17.2); Reticulocyte Percent 2.9 % (0.4-3.0); White Blood Count 6.6 th/mm3 (4.0-11.0)
[2017-12-01 20:06] LABS: Activated Partial Thrombo Time 23.5 sec (24.3-30.1); INR 1.2 Ratio; Prothrombin Time 12.1 sec (9.8-11.6)
[2017-12-01 20:18] LABS: Alanine Aminotransferase 25 U/L (10-53); Albumin 2.9 g/dL (3.4-5.0); Anion Gap 9 meq/L (5-15); Aspartate Aminotransferase 57 U/L (15-37); Blood Urea Nitrogen 17 mg/dL (7-18); Calcium 8.3 mg/dL (8.5-10.1); Carbon Dioxide 26.6 meq/L (21.0-32.0); Chloride 102 meq/L (98-107); Glomerular Filtration Rate 45 mL/min (>89); Glucose,Random 169 mg/dL (74-106); Iron 42 mcg/dL (50-170); Potassium 4.3 meq/L (3.5-5.1); Sodium 138 meq/L (136-145)
[2017-12-01 20:21] LABS: Alkaline Phosphatase 167 U/L (45-117); Ferritin 113 ng/mL (8-252); Total Iron Binding Capacity 350 mcg/dL (250-450); Total Protein 5.8 g/dL (6.4-8.2)
[2017-12-01] MEDS ORDERED: Vancomycin Inj 1,500 MG in Sodium Chlor 0.9% Inj 500 ML IV.SIG ONE (20:30)
[2017-12-01] MEDS: Piperacil/Tazo 4.5 GM Premix 4.5 GM/100 ML BAG IV.SIG SCH (21:55)
[2017-12-01] MEDS: Famotidine 20 MG Tablet PO SCH (21:56)
[2017-12-01] MEDS: Metoprolol Tartrate 25 MG Tablet PO SCH (21:56)
[2017-12-01] MEDS: Gabapentin 400 MG Capsule PO SCH (21:56)
[2017-12-01] MEDS: rifAXIMin 550 MG Tablet PO SCH (21:56)
[2017-12-02] MEDS: Piperacil/Tazo 4.5 GM Premix 4.5 GM/100 ML BAG IV.SIG SCH ×3 (04:09→20:35)
--- NOTE | 2017-12-02 08:58 | P.PN ---
Subjective Interval history: Patient states that she has had less discomfort in the right lower leg. She has received her first doses of IV antibiotics. Has been afebrile. Appetite good. Glucose levels under adequate control with current medication. Active Medications Generic Name Dose Route Start Last Admin Trade Name Freq PRN Reason Stop Dose Admin Dextrose 50 ml 12/01/17 18:49 D50w Vial IV.PUSH UNSCH PRN PER HYPOGLYCEMIA PROTOCOL Famotidine 20 mg 12/01/17 21:00 12/01/17 21:56 Pepcid PO 20 mg BID ANA MARIA Administration Folic Acid 1 mg 12/02/17 09:00 Folic Acid PO DAILY ANA MARIA Furosemide 20 mg 12/02/17 09:00 Lasix PO DAILY ANA MARIA Gabapentin 400 mg 12/01/17 21:00 12/01/17 21:56 Neurontin PO 400 mg HS ANA MARIA Administration Glucagon 1 mg 12/01/17 18:49 Glucagon Inj OTHER UNSCH PRN for Hypoglycemia Protocol Piperacillin/Tazobactam/Dextrose 4.5 gm in 100 mls @ 200 mls/hr 12/01/17 20: 00 12/02/17 06:50 Zosyn 4.5 Gm Premix IV.SIG Infused Q[facility]H [facility] Infusion [facility] Profile Note 0 mls @ 0 mls/hr 12/01/17 19:00 Vancomycin Consult Pharmacy OTHER [facility] As Directed Vancomycin HCl 1,250 mg/ 262.5 mls @ 262.5 mls/hr 12/02/17 21:00 Sodium Chloride IV.SIG Q24H [facility] Lorazepam 0.5 mg 12/01/17 18:46 Ativan PO Q8HR PRN Anxiety Metoprolol Tartrate 25 mg 12/01/17 21:00 12/01/17 21:56 Lopressor PO 25 mg BID ANA MARIA Administration Miscellaneous Information 0 each 12/04/17 20:45 [facility] Ordered Lab Info OTHER 12/04/17 20:46 ONCE ONE Pantoprazole Sodium 40 mg 12/02/17 09:00 Protonix PO DAILY [facility] Potassium Chloride 10 meq 12/02/17 09:00 Kcl PO DAILY [facility] Rifaximin 550 mg 12/01/17 21:00 12/01/17 21:56 Xifaxan PO 550 mg BID ANA MARIA Administration Sitagliptin Phosphate 50 mg 12/02/17 09:00 Januvia PO DAILY [facility] Spironolactone 100 mg 12/02/17 09:00 Aldactone PO DAILY ANA MARIA Physical Exam Vital signs: Vital Signs 12/01/17 20:00 12/02/17 00:00 12/02/17 04:00 Temperature 97.4 F L 98.5 F 98.9 F Pulse Rate 81 75 78 Respiratory Rate 18 18 18 Blood Pressure 129/60 133/63 135/61 Pulse Oximetry 96 97 98 Intake & Output 12/01/17 12/02/17 12/02/17 18:59 06:59 18:59 Intake Total 805 / 805 Balance 805 / 805 Weight 218 lb 14.704 oz 222 lb 10.67 oz Intake: IV 805 / 805 Zosyn 4.5 GM Premix 4.5 gm In 205 / 205 100 ml @ 200 mls/hr IV.SIG Q8H ANA MARIA Rx#:[id number] Vancomycin Inj 1,500 MG In NS 600 / 600 Inj 500 ML @ 257.5 mls/hr IV. SIG ONCE ONE Rx#:[id number] Other: Date of Last Bowel Movement 12/01/17 12/01/17 Weight On Admission 218 lb 14.704 oz Narrative: Cardiovascular: Regular rate and rhythm with soft systolic murmur Lungs: Clear to auscultation Abdomen: Soft, nontender, nondistended with bowel sounds present. No masses. No ascites. Left lower extremity reveals no edema or calf tenderness. Right lower leg reveals decreased edema as compared to admission. Erythema has decreased away from previously marked margins. Superficial stage II wound anterior lower leg remains stable. Distal perfusion intact. Results - Labs CBC & Chem 7: 12/01/17 19:40 12/01/17 19:40 Laboratory Results - last 24 hr 12/01/17 12/01/17 12/01/17 19:40 19:40 19:40 WBC 6.6 RBC 3.11 L Hgb 10.2 L Hct 30.8 L MCV 98.9 MCH 32.9 MCHC 33.3 RDW 16.9 Plt Count 221 D MPV 7.0 Neut % (Auto) 82.4 H Lymph % (Auto) 10.2 Hale % (Auto) 5.2 Eos % (Auto) 1.5 Baso % (Auto) 0.7 Neut # (Auto) 5.5 Lymph # (Auto) 0.7 L Hale # (Auto) 0.3 Eos # (Auto) 0.1 Baso # (Auto) 0.0 WBC Differential . Differential Comment Auto diff final Retic Count 2.9 Absolute Retic 89.9 PT INR APTT Sodium 138 Potassium 4.3 Chloride 102 Carbon Dioxide 26.6 Anion Gap 9 BUN 17 Creatinine 1.21 H Estimated GFR 45 L Random Glucose 169 H Calcium 8.3 L Iron 42 L TIBC 350 % Saturation 12.0 L Ferritin 113 Total Bilirubin 3.0 H AST 57 H ALT 25 Alkaline Phosphatase 167 H Ammonia 64 H Total Protein 5.8 L Albumin 2.9 L 12/01/17 19:40 WBC RBC Hgb Hct MCV MCH MCHC RDW Plt Count MPV Neut % (Auto) Lymph % (Auto) Hale % (Auto) Eos % (Auto) Baso % (Auto) Neut # (Auto) Lymph # (Auto) Hale # (Auto) Eos # (Auto) Baso # (Auto) WBC Differential Differential Comment Retic Count Absolute Retic PT 12.1 H INR 1.2 APTT 23.5 L Sodium Potassium Chloride Carbon Dioxide Anion Gap BUN Creatinine Estimated GFR Random Glucose Calcium Iron TIBC % Saturation Ferritin Total Bilirubin AST ALT Alkaline Phosphatase Ammonia Total Protein Albumin Assessment and Plan - Assessment (1) Cellulitis of right lower extremity Code(s): L03.115 - Cellulitis of right lower limb Status: Acute Plan: Continue with IV antibiotics. Hematoma will need to be addressed in order to resolve cellulitis. Wound care instructions ordered for superficial wound overlying hematoma. (2) Hematoma of right lower extremity Code(s): S80.11XA - Contusion of right lower leg, initial encounter Status: Acute Plan: I have consulted general surgery to assess the hematoma for incision and drainage. (3) Cirrhosis Code(s): K74.60 - Unspecified cirrhosis of liver Status: Chronic Plan: The patient has a history of cirrhosis due to alcohol consumption and hepato- steatosis. She continues with current medication. Will consult Dr. Germain, her sub arc operator, to assist with any medication changes due to elevated ammonia level. (4) Type 2 diabetes mellitus Code(s): E11.9 - Type 2 diabetes mellitus without complications Status: Chronic Plan: Continue with current oral hypoglycemic agents. Continue with blood glucose monitoring. Patient has refused a diabetic diet. (5) Iron deficiency anemia Code(s): D50.9 - Iron deficiency anemia, unspecified Status: Chronic Plan: The patient reports that she has not been taking her ferrous sulfate daily. Iron level is low. H&H is low but stable. I have ordered ferrous sulfate to be given daily. She does have a component of anemia of chronic disease in addition to the iron deficiency. (6) Gastroesophageal reflux disease Code(s): K21.9 - Gastro-esophageal reflux disease without esophagitis Status: Chronic (7) Hypertension Code(s): I10 - Essential (primary) hypertension Status: Chronic Plan: Blood pressure under adequate control with metoprolol. Will follow. (8) Anxiety Code(s): F41.9 - Anxiety disorder, unspecified Status: Chronic Plan: Patient has a history of anxiety and receives lorazepam as needed. (3) Cirrhosis Qualifiers: Hepatic cirrhosis type: other cirrhosis Qualified Code(s): K74.69 - Other cirrhosis of liver (4) Type 2 diabetes mellitus Qualifiers: Diabetes mellitus roasterman insulin use: without chcf use Diabetes mellitus complication status: without complication Qualified Code(s): E11.9 - Type 2 diabetes mellitus without complications (5) Iron deficiency anemia Qualifiers: Iron deficiency anemia type: unspecified iron deficiency Qualified Code(s): D50.9 - Iron deficiency anemia, unspecified (7) Hypertension Qualifiers: Hypertension type: essential hypertension Qualified Code(s): I10 - Essential (primary) hypertension
[2017-12-02] MEDS: Metoprolol Tartrate 25 MG Tablet PO SCH ×2 (09:15→20:35)
[2017-12-02] MEDS: Potassium Chloride 10 MEQ ER Capsule PO SCH (09:15)
[2017-12-02] MEDS: rifAXIMin 550 MG Tablet PO SCH ×2 (09:16→20:35)
[2017-12-02] MEDS: Folic Acid 1 MG Tablet PO SCH (09:16)
[2017-12-02] MEDS: Furosemide 20 MG Tablet PO SCH (09:16)
--- NOTE | 2017-12-02 10:07 | MH ---
cc: Tate Loving MD DATE OF ADMISSION: 12/01/2017 ADMITTING DIAGNOSIS: Hematoma, right lower extremity with cellulitis. HISTORY OF PRESENT ILLNESS: This 62-year-old white female, well known to the undersigned physician, has a history of cirrhosis as a result of hepatosteatosis and alcohol use. She had been relatively stable with regard to her cirrhosis. The patient has recently moved into a new home and was working to put her things away, when she had several falls as a result of tripping over objects or slipping on the floor that had water on it. The patient sustained an injury to the right lower leg approximately 2 weeks ago, at which point there was a large hematoma. Initially, the patient was seen in the emergency department for evaluation for possible DVT, but the ultrasound ruled this out. The patient was instructed to treat the hematoma conservatively with elevation, warm compresses, and rest. The patient presented to the undersigned physician's office on the day of admission with increasing pain and erythema to right lower extremity. There has been early necrosis of the anterior right lower leg overlying the hematoma. The patient reports that there has been serous drainage from the wound, but she denies any fever, chills, night sweats, nausea or vomiting. Based on the clinical evaluation, the patient was felt to require admission for more definitive treatment. PAST MEDICAL HISTORY: Significant for chronic kidney disease, stage III; cirrhosis without ascites. She has a history of chronic insomnia, iron-deficiency anemia due to chronic disease, hyperlipidemia, hypertension, history of supraventricular tachycardia, type 2 diabetes, gastroesophageal reflux disease, hypothyroidism, but she currently takes no medication as thyroid studies have been within normal limits. History of hemorrhoids, history of hyperuricemia with episodes of gout, seborrheic dermatitis, remote history of colitis, which is currently in remission; history of anxiety, depression, history of a mixed connective tissue disorder, which is currently in remission. She had a history of C difficile colitis in 2014. She has a history of an elevated CEA-125 antigen, which was evaluated by gynecologic oncology and evaluation was negative. She is heterozygous for hereditary hemochromatosis, and she has a history of adenomatous colonic polyps. She is status post tonsillectomy and adenoidectomy at age 3, status post bunionectomy, and status post gastric sleeve placement for morbid obesity in 2011. CURRENT MEDICATIONS: 1. Tradjenta 5 mg daily. 2. Pantoprazole 40 mg daily. 3. Spironolactone 100 mg daily. 4. Xifaxan 550 mg twice daily. 5. Ferrous sulfate 325 mg daily. 6. Vitamin D2 of 50,000 units, 3 times a week. 7. Gabapentin 400 mg once a day at bedtime. 8. Furosemide 20 mg daily as needed. 9. Metoprolol tartrate 25 mg twice daily. 10. Fluticasone nasal spray 1 spray in each nostril twice daily as needed. 11. Ranitidine 150 mg twice daily as needed. 12. Potassium chloride 8 mEq, one tablet daily. 13. Lorazepam 1 mg, one tablet every 6 hours as needed for anxiety. 14. Lidocaine patch 5%, apply 1 patch every 12 hours to the affected area. 15. Folic acid 1 mg daily. ALLERGIES: KEREN INHIBITORS, WHICH CAUSED A COUGH AND LATEX, WHICH CAUSES ITCHING. FAMILY HISTORY: Positive for father with hypertension, hyperlipidemia. Mother had depression, diverticulosis, hypertension, anxiety, and she has siblings with colitis, anxiety, and seizure disorder. IMMUNIZATION HISTORY: She had a pneumococcal vaccination on 02/20/2016. She declines influenza vaccination. She has received hepatitis A and B immunization series in 2016. SOCIAL HISTORY: She is . 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 She lives with her and she does not smoke, but she did smoke in the past. She currently does not consume alcohol. REVIEW OF SYSTEMS: Negative except as outlined above. PHYSICAL EXAMINATION: VITAL SIGNS: The weight is 219 pounds. Blood pressure 130/82, heart rate was 92, respirations 16, temperature 97.9 degrees Fahrenheit, oxygen saturation on room air was 93%. GENERAL: This is an obese, middle-aged, white female sitting in a chair in mild distress due to right lower extremity discomfort. HEENT: The pupils are equal, round, reactive to light. Extraocular muscles intact. Sclerae reveals some scleral icterus. Conjunctivae are pink. Mouth and throat reveal moist mucous membranes. No erythema or exudates. NECK: Supple without lymphadenopathy, JVD, bruits or thyromegaly. CARDIOVASCULAR: Regular rate and rhythm with a soft systolic murmur, but no rubs or gallops. LUNGS: Clear to auscultation without wheeze, rhonchi or rales. ABDOMEN: Soft, nontender, obese, nondistended. No ascites present. No masses palpable. No HSM. No CVAT. GENITOURINARY AND RECTAL: Deferred. EXTREMITIES: The left lower extremity revealed trace ankle and pedal edema with no calf tenderness. No cyanosis. No erythema. The right lower extremity reveals 2-3+ edema of the lower leg. There is an area of erythema encompassing the entire anterior lower leg, and extending circumferentially around the distal 1/2 of the lower leg. There is a 3 x 6 cm superficial stage II open area with a central eschar measuring 3 x 4.5 cm. There is serous discharge from the central area. No bleeding. The leg is warm to the touch. It is tender to palpation. Distal perfusion is intact. SKIN: Warm and dry. No jaundice. The skin is generally dry. NEUROLOGIC: The patient is awake and alert, oriented x3. Speech intact. Cranial nerves intact. No lateralizing neurologic deficits. ASSESSMENT AND PLAN: 1. This 62-year-old white female presented with a hematoma to the right lower extremity,which now has findings of cellulitis with evolving necrosis of the anterior skin of the anterior lower leg. Based on the patient's multiple comorbidities, she is at high risk for complications from an infectious process such as this. She would benefit from inpatient treatment. She will be admitted to a medical/surgical bed, placed on IV antibiotics. I am going to order local wound care. I will consult general surgery for assessment of the hematoma for possible incision and drainage. 2. History of cirrhosis. Will check laboratory studies including ammonia level and liver function studies, and will consult the patient's mis manager for assistance with management of her cirrhosis. 3. Diabetes. The patient is on oral hypoglycemic agents. We will continue with usual medications. We will perform blood glucose monitoring and cover any elevated blood sugar readings with sliding scale if necessary. I have recommended a diabetic diet in the hospital, but the patient refuses. She wants a regular diet. 4. Hypertension. The patient will continue with current medication, and will monitor blood pressure and adjust medication as needed. 5. History of gastroesophageal reflux disease. Continue with pantoprazole 40 mg daily. The patient has also been receiving ranitidine as needed. We will provide both medications initially and then adjust as needed. 6. History of anemia. The patient has a combination of iron-deficiency anemia and anemia of chronic disease. We will check iron study, iron ferritin, CBC. Pending results, will make further recommendations. I have explained the plan of care to the patient, who expressed understanding and agreement. MD VINCENT Herron/rh , 09:10 AM , 09:26 AM
--- NOTE | 2017-12-02 12:40 | P.CONGI ---
History of Present Illness Consult date: 12/02/17 Consult reason: Cirrhosis management Chief complaint: Hematoma + Cellulitis RLE History of Present Illness: This is a 62 yo F with medical history significant for previous sleeve gastrectomy in 2011 and cirrhosis secondary to history of ETOH abuse and fatty liver who is currently being managed outpatient by Dr. Germain. Pt was previously followed by [facility] transplant center, however was removed from the transplant list when her MELD score improved. Pt has a TIPS and has not required a paracentesis since having this placed in November 2015, previously was needing therapeutic paracentesis every 2-3 weeks. Pt quit drinking in 2014. Pt was admitted by her PCP for inpatient treatment of right lower extremity cellulitis. Pt reports bumping her leg during a slip and fall and at first had a large hematoma to the area but now is having drainage and redness. Our service has been consulted to manage the cirrhosis. Pt is currently on Lasix daily, states she has chronic swelling of BLE but that this is normal for her. Denies any abdominal pain or swelling, nausea, vomiting, changes in bowel habits. Last EGD done in Feb 2016 --> Esophagitis distal esophagus, gastritis, duodenitis duodenal bulb, no esophageal varices or gastric varices, S/P sleeve gastrectomy. Pathology (duodenum) no significant histopathologic abnormalities ( gastric antrum) antral mucosa with reactive gastropathy, mild active chronic gastritis (distal esophagus) acute inflammatory exudate. Pt was advised to have repeat EGD in 6 months, she has not repeat procedure. Last colonoscopy in July 2015 --> Diminutive polyp in the cecum, diverticulosis in the sigmoid and descending colon, internal and external hemorrhoids, decreased sphincter tone. Pathology (polyp) adenomatous polyp. Last US in May of this year revealed stable US of upper abdomen, coarsened echogenicity of liver suggesting hepatocellular diease or fatty metamorphosis. There is again noted to be cholelithiasis with gallstones in place. TIPS is patent and in place. AFP in May was 3.3. <Mary Ann Sagastume - Last Filed: 12/02/17 15:31> Review of Systems Gastrointestinal: Denies abdominal pain, Denies change in stools, Denies nausea , Denies vomiting <Mary Ann Sagastume - Last Filed: 12/02/17 15:31> PMFSH - History History Provided By: Patient - Medical History Medical History: Medical History (Last Updated 11/17/17 @ 20:04 by Collin Hurst RN) CKD (chronic kidney disease) DM type 2 (diabetes mellitus, type 2) Hiatal hernia Liver disease - Surgical History Surgical History: Surgical History (Last Updated 11/17/17 @ 20:04 by Collin Hurst RN) S/P TIPS (transjugular intrahepatic portosystemic shunt) - Tobacco History Second Hand Smoke Exposure: Yes Smoking Status: Never smoker - Alcohol History How Often Do You Have a Drink Containing Alcohol: 4 or more times a week - Substance Use History Substance History: No History of Abuse <Mary Ann Sagastume - Last Filed: 12/02/17 15:31> - Medical History Medical History: Medical History (Last Updated 11/17/17 @ 20:04 by Collin uHrst RN) CKD (chronic kidney disease) DM type 2 (diabetes mellitus, type 2) Hiatal hernia Liver disease - Surgical History Surgical History: Surgical History (Last Updated 11/17/17 @ 20:04 by Collin Hurst RN) S/P TIPS (transjugular intrahepatic portosystemic shunt) <Juan Antonio Arce - Last Filed: 12/03/17 16:37> Medications and Allergies Active Medications: Active Medications Dextrose (D50w Vial) 50 ml IV.PUSH UNSCH PRN PRN Reason: PER HYPOGLYCEMIA PROTOCOL Folic Acid (Folic Acid) 1 mg PO DAILY [facility] Last Admin: 12/02/17 09:16 Dose: 1 mg Furosemide (Lasix) 20 mg PO DAILY [facility] Last Admin: 12/02/17 09:16 Dose: 20 mg Gabapentin (Neurontin) 400 mg PO HS [facility] Last Admin: 12/01/17 21:56 Dose: 400 mg Glucagon (Glucagon Inj) 1 mg OTHER UNSCH PRN PRN Reason: for Hypoglycemia Protocol Piperacillin/Tazobactam/Dextrose (Zosyn 4.5 Gm Premix) 4.5 gm in 100 mls @ 200 mls/hr IV.SIG Q8H [facility] Last Admin: 12/02/17 11:57 Dose: 200 mls/hr Pharmacy Profile Note (Vancomycin Consult Pharmacy) 0 mls @ 0 mls/hr OTHER UNSCH [facility] Vancomycin HCl 1,500 mg/ (Sodium Chloride) 515 mls @ 250 mls/hr IV.SIG Q24H [facility] Lorazepam (Ativan) 0.5 mg PO Q8HR PRN PRN Reason: Anxiety Metoprolol Tartrate (Lopressor) 25 mg PO BID [facility] Last Admin: 12/02/17 09:15 Dose: 25 mg Miscellaneous Information ([facility] Ordered Lab Info) 0 each OTHER ONCE ONE Stop: 12/04/17 20:46 Pantoprazole Sodium (Protonix) 40 mg PO DAILY [facility] Last Admin: 12/02/17 09:16 Dose: 40 mg Potassium Chloride (Kcl) 10 meq PO DAILY [facility] Last Admin: 12/02/17 09:15 Dose: 10 meq Rifaximin (Xifaxan) 550 mg PO BID [facility] Last Admin: 12/02/17 09:16 Dose: 550 mg Sitagliptin Phosphate (Januvia) 50 mg PO DAILY [facility] Last Admin: 12/02/17 09:16 Dose: 50 mg Spironolactone (Aldactone) 100 mg PO DAILY [facility] Last Admin: 12/02/17 09:16 Dose: 100 mg <Mary Ann Sagastume - Last Filed: 12/02/17 15:31> Active Medications: Active Medications Dextrose (D50w Vial) 50 ml IV.PUSH UNSCH PRN PRN Reason: PER HYPOGLYCEMIA PROTOCOL Ferrous Sulfate (Ferosul) 325 mg PO DAILY [facility] Folic Acid (Folic Acid) 1 mg PO DAILY [facility] Last Admin: 12/03/17 09:35 Dose: 1 mg Furosemide (Lasix) 20 mg PO DAILY [facility] Last Admin: 12/03/17 09:37 Dose: Not Given Gabapentin (Neurontin) 400 mg PO [facility] Last Admin: 12/02/17 20:35 Dose: 400 mg Glucagon (Glucagon Inj) 1 mg OTHER UNSCH PRN PRN Reason: for Hypoglycemia Protocol Piperacillin/Tazobactam/Dextrose (Zosyn 4.5 Gm Premix) 4.5 gm in 100 mls @ 200 mls/hr IV.SIG Q8H [facility] Last Admin: 12/03/17 12:59 Dose: 200 mls/hr Pharmacy Profile Note (Vancomycin Consult Pharmacy) 0 mls @ 0 mls/hr OTHER UNSCH [facility] Vancomycin HCl 1,500 mg/ (Sodium Chloride) 515 mls @ 250 mls/hr IV.SIG Q24H [facility] Last Infusion: 12/03/17 00:00 Dose: Infused Lorazepam (Ativan) 0.5 mg PO Q8HR PRN PRN Reason: Anxiety Metoprolol Tartrate (Lopressor) 25 mg PO BID [facility] Last Admin: 12/03/17 09:36 Dose: 25 mg Miscellaneous Information ([facility] Ordered Lab Info) 0 each OTHER ONCE ONE Stop: 12/04/17 20:46 Pantoprazole Sodium (Protonix) 40 mg PO DAILY [facility] Last Admin: 12/03/17 09:36 Dose: 40 mg Potassium Chloride (Kcl) 10 meq PO DAILY [facility] Last Admin: 12/03/17 09:36 Dose: 10 meq Rifaximin (Xifaxan) 550 mg PO BID [facility] Last Admin: 12/03/17 09:35 Dose: 550 mg Sitagliptin Phosphate (Januvia) 50 mg PO DAILY [facility] Last Admin: 12/03/17 09:35 Dose: 50 mg Spironolactone (Aldactone) 100 mg PO DAILY [facility] Last Admin: 12/03/17 09:35 Dose: 100 mg <Juan Antonio Arce - Last Filed: 12/03/17 16:37> Allergies Allergy/AdvReac Type Severity Reaction Status Date / Time diazepam Allergy Severe MAKES PT Verified 12/03/17 09:35 VERY AGITATED latex Allergy Severe Wheezing Verified 12/03/17 09:35 LATEX AdvReac Severe Wheezing Uncoded 12/03/17 09:35 Home Medications Medication Instructions Recorded Confirmed Type linagliptin [Tradjenta] 5 mg PO DAILY 11/17/17 12/01/17 History lorazepam 0.5 mg PO Q8HR PRN 11/17/17 12/01/17 History potassium chloride 10 meq PO DAILY 11/17/17 12/01/17 History ergocalciferol (vitamin D2) See Label Instructions .ROUTE 12/01/17 12/01/17 History [Vitamin D2] .COMPLEX ferrous sulfate 325 mg PO DAILY 12/01/17 12/01/17 History folic acid 1 mg PO DAILY 12/01/17 12/01/17 History furosemide 1 tab PO DAILY 12/01/17 12/01/17 History gabapentin 1 cap PO HS 12/01/17 12/01/17 History metoprolol tartrate 1 tab PO BID 12/01/17 12/01/17 History pantoprazole 1 tab PO DAILY 12/01/17 12/01/17 History ranitidine HCl 150 mg PO BID 12/01/17 12/01/17 History rifaximin [Xifaxan] 1 tab PO BID 12/01/17 12/01/17 History spironolactone 1 tab PO DAILY 12/01/17 12/01/17 History Exam Vital signs: Vital Signs 12/01/17 20:00 12/02/17 00:00 12/02/17 04:00 Temperature 97.4 F L 98.5 F 98.9 F Pulse Rate 81 75 78 Respiratory Rate 18 18 18 Blood Pressure 129/60 133/63 135/61 Pulse Oximetry 96 97 98 12/02/17 08:00 Temperature 98.2 F Pulse Rate 77 Respiratory Rate 17 Blood Pressure 122/68 Pulse Oximetry 98 Intake & Output 12/01/17 12/02/17 12/02/17 18:59 06:59 18:59 Intake Total 805 / 805 Balance 805 / 805 Weight 99.3 kg 101 kg Intake: IV 805 / 805 Zosyn 4.5 GM Premix 4.5 gm In 205 / 205 100 ml @ 200 mls/hr IV.SIG Q8H [facility] Rx#:[id number] Vancomycin Inj 1,500 MG In NS 600 / 600 Inj 500 ML @ 257.5 mls/hr IV. SIG ONCE ONE Rx#:[id number] Other: Date of Last Bowel Movement 12/01/17 12/01/17 Weight On Admission 99.3 kg - Constitutional no acute distress - Routine HEENT Exam Head: Present: normocephalic, atraumatic Eye: Present: conjunctival icterus - Routine Respiratory Exam Absent: accessory muscle use - Routine Abdominal Exam Present: soft, normoactive bowel sounds. Absent: tenderness, distended - Routine Extremities Exam Comments: BLE edema, wound to RLE - Routine Skin Exam Present: dry, warm - Routine Neurological Exam Present: alert, oriented X3 <Mary Ann Sagastume - Last Filed: 12/02/17 15:31> Vital signs: Vital Signs 12/02/17 20:00 12/03/17 00:00 12/03/17 04:00 Temperature 98.0 F 98.0 F 98.3 F Pulse Rate 71 74 71 Respiratory Rate 18 18 18 Blood Pressure 127/64 115/60 123/63 Pulse Oximetry 99 99 99 12/03/17 08:00 12/03/17 12:00 Temperature 97.3 F L 97.2 F L Pulse Rate 67 76 Respiratory Rate 18 18 Blood Pressure 126/61 111/58 L Pulse Oximetry 97 99 Intake & Output 12/02/17 12/03/17 12/03/17 18:59 06:59 18:59 Intake Total 580 / 580 810 / 810 Balance 580 / 580 810 / 810 Weight 100.7 kg Intake: IV 100 / 100 810 / 810 Zosyn 4.5 GM Premix 4.5 gm In 100 / 100 210 / 210 100 ml @ 200 mls/hr IV.SIG Q8H [facility] Rx#:[id number] Vancomycin Inj 1,500 MG In NS 600 / 600 Inj 500 ML @ 250 mls/hr IV.SIG Q24H [facility] Rx#:[id number] Oral 480 / 480 Other: # Voids 6 Date of Last Bowel Movement 12/02/17 12/01/17 # Bowel Movements 1 <BharatjoanSusiemarcel - Last Filed: 12/03/17 16:37> Results - Labs CBC & Chem 7: 12/01/17 19:40 12/02/17 07:50 Labs: Laboratory Results - last 24 hr 12/01/17 12/01/17 12/01/17 19:40 19:40 19:40 WBC 6.6 RBC 3.11 L Hgb 10.2 L Hct 30.8 L MCV 98.9 MCH 32.9 MCHC 33.3 RDW 16.9 Plt Count 221 D MPV 7.0 Neut % (Auto) 82.4 H Lymph % (Auto) 10.2 Shannon % (Auto) 5.2 Eos % (Auto) 1.5 Baso % (Auto) 0.7 Neut # (Auto) 5.5 Lymph # (Auto) 0.7 L Shannon # (Auto) 0.3 Eos # (Auto) 0.1 Baso # (Auto) 0.0 WBC Differential . Differential Comment Auto diff final Retic Count 2.9 Absolute Retic 89.9 PT INR APTT Sodium 138 Potassium 4.3 Chloride 102 Carbon Dioxide 26.6 Anion Gap 9 BUN 17 Creatinine 1.21 H Estimated GFR 45 L Random Glucose 169 H Calcium 8.3 L Iron 42 L TIBC 350 % Saturation 12.0 L Ferritin 113 Total Bilirubin 3.0 H AST 57 H ALT 25 Alkaline Phosphatase 167 H Ammonia 64 H Total Protein 5.8 L Albumin 2.9 L 12/01/17 12/02/17 19:40 07:50 WBC RBC Hgb Hct MCV MCH MCHC RDW Plt Count MPV Neut % (Auto) Lymph % (Auto) Shannon % (Auto) Eos % (Auto) Baso % (Auto) Neut # (Auto) Lymph # (Auto) Shannon # (Auto) Eos # (Auto) Baso # (Auto) WBC Differential Differential Comment Retic Count Absolute Retic PT 12.1 H INR 1.2 APTT 23.5 L Sodium Potassium Chloride Carbon Dioxide Anion Gap BUN Creatinine 1.20 H Estimated GFR 45 L Random Glucose Calcium Iron TIBC % Saturation Ferritin Total Bilirubin AST ALT Alkaline Phosphatase Ammonia Total Protein Albumin <Mary Ann Sagastume - Last Filed: 12/02/17 15:31> - Labs CBC & Chem 7: 12/01/17 19:40 12/03/17 06:21 Labs: Laboratory Results - last 24 hr 12/01/17 12/03/17 12/03/17 19:40 06:21 06:21 Sodium 141 Potassium 3.6 Chloride 104 Carbon Dioxide 27.2 Anion Gap 10 BUN 15 Creatinine 1.38 H Estimated GFR 38 L Random Glucose 121 H Hemoglobin A1c 5.8 Calcium 8.3 L Tumor Marker AFP 2.2 - Imaging Impressions Liver Ultrasound 12/03/17 00:00 CONCLUSION: 1. TIPS shunt appears to be patent. Hepatic and splenic vasculature also appears to be patent. 2. Diffuse hepatic fatty infiltration. 3. Gallbladder is decompressed. Cholelithiasis <Juan Antonio Arce - Last Filed: 12/03/17 16:37> Assessment and Plan - Plan Assessment: - 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 Germain. Previously followed by [facility] transplant center, however was removed from the transplant list when her MELD score improved. Pt has a TIPS and has not required a paracentesis since having this placed in November 2015, previously was needing therapeutic paracentesis every 2-3 weeks. Pt quit drinking in 2014. Our service has been consulted to manage the cirrhosis. Pt is currently on Lasix daily, states she has chronic swelling of BLE but that this is normal for her. Denies any abdominal pain or swelling, nausea, vomiting, changes in bowel habits. EGD done in Feb 2016 --> Esophagitis distal esophagus, gastritis, duodenitis duodenal bulb, no esophageal varices or gastric varices, S/P sleeve gastrectomy. Pathology (duodenum) no significant histopathologic abnormalities (gastric antrum) antral mucosa with reactive gastropathy, mild active chronic gastritis ( distal esophagus) acute inflammatory exudate. Colonoscopy in July 2015 --> Diminutive polyp in the cecum, diverticulosis in the sigmoid and descending colon, internal and external hemorrhoids, decreased sphincter tone. Pathology (polyp) adenomatous polyp. Office records: Last US in May of this year revealed stable US of upper abdomen, coarsened echogenicity of liver suggesting hepatocellular disease or fatty metamorphosis. There is again noted to be cholelithiasis with gallstones in place. TIPS is patent and in place. AFP in May was 3.3. Labs from May Ammonia-88 AST-62 ALT-30 Alk phos-149 T bili-0.8 - Cellulitis of RLE- per primary team Plan: Repeat US to check patency of TIPS- elevation in T bili noted Pt does not want US today, wants to eat, but is willing to have US in the morning Discussed with US and they are planning to do first thing in the morning, pt will be NPO after MN and then OK to eat after US AFP Ammonia elevated but pt asymptomatic, was advised to take Xifaxan outpt but appears there was an insurance issue Xifaxan Continue Lasix/Spironolactone Monitor LFTs Avoid hepatotoxins Will continue to follow Pt has been seen and examined by myself and Dr. Arce and this note is written on his behalf <Mary Ann Sagastume - Last Filed: 12/02/17 15:31> - Plan Patient was seen and examined, agree with above note, we will check for TIPS patency, her fall does not seem to be related to encephalopathy, she stated that it is a new house for her and she slipped over water, patient absolutely refusing to use lactulose and she does not feel that she needed, will continue rifaximin <Juan Antonio Arce - Last Filed: 12/03/17 16:37>
[2017-12-02] MEDS ORDERED: Gadobutrol PF 10 MMOL/10 ML Vial (for RAD) IV.SIG ONE (13:45)
--- NOTE | 2017-12-02 14:35 | MR ---
EXAM DATE: 12/02/2017 1:43 PM EDT AGE/SEX: 62 years / Female INDICATIONS: Right lower leg pain proximal to ankle, possible hematoma or mass. CLINICAL DATA: This is the patient's initial encounter. Patient reports that signs and symptoms have been present for 2 days and indicates a pain score of 4/10. MEDICAL/SURGICAL HISTORY: Diabetes mellitus type II. Renal insufficiency. Tonsillectomy. Herni a repair. COMPARISON: No prior exams available for comparison. TECHNIQUE: Multiplanar, multisequence MRI examination was performed without and with 10 ml Gadavist (gadobutrol) contrast as single exam dose. FINDINGS: Fusiform fluid collection is seen in the lateral superficial soft tissues so of the distal lower leg. Finding measures 6.9 x 2.5 cm in axial dimensions and 15.5 cm in craniocaudal dimension. It demonstr ates peripheral high signal and central intermediate signal to muscle on the T1-weighted images. It d emonstrates peripheral high signal and central intermediate signal to muscle on the T2-weighted image s. There is no evidence of extension into the adjacent muscles. There is mild edema of the peroneal musc les. All of the visualized tendons are intact. Bone marrow signal is homogeneous and within normal li mits. No internal enhancement is identified on the postcontrast images. CONCLUSION: Elongated fluid collection in the superficial soft tissues of the distal lower leg laterally with sig nal characteristics suggesting hematoma. Electronically signed by: José Manuel Phelps MD 12/02/2017 2:34 PM EDT
[2017-12-02 17:02] LABS: Hemoglobin A1c 5.8 % (4.3-6.0)
[2017-12-02] MEDS: Famotidine 20 MG Tablet PO SCH (18:50)
[2017-12-02] MEDS: Gabapentin 400 MG Capsule PO SCH (20:35)
[2017-12-02] MEDS: Vancomycin Inj 1,500 MG in Sodium Chlor 0.9% Inj 500 ML IV.SIG SCH (20:36)
[2017-12-02] MEDS ORDERED: Vancomycin Inj 1,250 MG in Sodium Chlor 0.9% Inj 250 ML IV.SIG SCH (21:00)
--- NOTE | 2017-12-02 23:19 | MB ---
cc: Chauncey Chappell MD,Tate Barakat MD DATE: 12/02/2017 CONSULTING PHYSICIAN: Tate Loving MD REASON FOR CONSULTATION: Hematoma to the right lower extremity. HISTORY OF PRESENT ILLNESS: This is a pleasant 62-year-old female who a few weeks ago slipped on some water on her tile floor and bumped her right lower extremity. She developed a hematoma. She was seen in the emergency room. DVT was ruled out. She subsequently developed some erythema around the area and was admitted late yesterday and started on IV antibiotics. Surgery was consulted for consideration of drainage of the hematoma. Subsequently to being admitted to the hospital and getting a few doses of antibiotic therapy, the erythema that had been previously marked by Dr. Loving is much improved. She does have a hematoma to the lower extremity. PAST MEDICAL HISTORY: Significant for multiple problems with kidney disease, cirrhosis. She has hyperlipidemia, hypertension, tachycardia, diabetes, some reflux, hypothyroidism. She apparently underwent an urgent ventral hernia repair a few years back, and she has had some problems with colon polyps. MEDICATIONS: Reviewed. All are listed in the computer and will not be repeated. FAMILY: Noncontributory. PHYSICAL EXAMINATION: GENERAL: She is alert, oriented. VITAL SIGNS: Stable. NECK: Supple. CHEST: Clear. EXTREMITIES: She is in discomfort because of her right lower extremity. She has some edema. Erythema that had been previously marked is much improved. The area of the hematoma measures approximately 3 x 6 cm. It does not appear to have any fluctuance or abscess. ASSESSMENT: A 62-year-old female with about a 2-week history of a hematoma that got a little cellulitic around the area, much improved on less than 12 hours of antibiotic therapy. PLAN: At this time, I would treat this conservatively. We will continue antibiotic therapy. If it does not improve dramatically, then certainly we can excise the hematoma; however, I warned her that it may result in longer wound healing because of the location. She appeared to understand and surgery will be following her during this admission. Chauncey Chappell MD JAXEL/boogie , 10:38 PM , 10:45 PM
[2017-12-03] MEDS: Piperacil/Tazo 4.5 GM Premix 4.5 GM/100 ML BAG IV.SIG SCH ×3 (04:23→21:57)
[2017-12-03 07:50] LABS: Calcium 8.3 mg/dL (8.5-10.1); Carbon Dioxide 27.2 meq/L (21.0-32.0); Potassium 3.6 meq/L (3.5-5.1)
[2017-12-03] MEDS: Folic Acid 1 MG Tablet PO SCH (09:35)
[2017-12-03] MEDS: rifAXIMin 550 MG Tablet PO SCH ×2 (09:35→22:03)
[2017-12-03] MEDS: Metoprolol Tartrate 25 MG Tablet PO SCH ×2 (09:36→22:05)
[2017-12-03] MEDS: Potassium Chloride 10 MEQ ER Capsule PO SCH (09:36)
--- NOTE | 2017-12-03 09:36 | P.PNGI ---
Subjective Interval history: Pt resting in bed, having US done, has already ordered breakfast. States she feels well today. Denies nausea, vomiting, abdominal pain. <Mary Ann Sagastume - Last Filed: 12/03/17 09:31> Interval history: Patient was seen and examined, agree with above note, patient does not want to take lactulose at all, she does not think that she has any encephalopathy, if the tubes are patent and she is doing better will continue current medication sign off, fu as needed <Juan Antonio Arce - Last Filed: 12/04/17 12:00> Physical Exam Vital signs: Vital Signs 12/02/17 12:00 12/02/17 16:00 12/02/17 20:00 Temperature 97.9 F 98.0 F 98.0 F Pulse Rate 72 73 71 Respiratory Rate 17 18 18 Blood Pressure 116/66 113/65 127/64 Pulse Oximetry 99 100 99 12/03/17 00:00 12/03/17 04:00 Temperature 98.0 F 98.3 F Pulse Rate 74 71 Respiratory Rate 18 18 Blood Pressure 115/60 123/63 Pulse Oximetry 99 99 Intake & Output 12/02/17 12/03/17 12/03/17 18:59 06:59 18:59 Intake Total 580 / 580 810 / 810 Balance 580 / 580 810 / 810 Weight 100.7 kg Intake: IV 100 / 100 810 / 810 Zosyn 4.5 GM Premix 4.5 gm In 100 / 100 210 / 210 100 ml @ 200 mls/hr IV.SIG Q8H ANA MARIA Rx#:[id number] Vancomycin Inj 1,500 MG In NS 600 / 600 Inj 500 ML @ 250 mls/hr IV.SIG Q24H ANA MARIA Rx#:[id number] Oral 480 / 480 Other: # Voids 6 Date of Last Bowel Movement 12/02/17 12/01/17 # Bowel Movements 1 - Constitutional no acute distress - Routine HEENT Exam Head: Present: normocephalic, atraumatic - Routine Respiratory Exam Absent: accessory muscle use - Routine Abdominal Exam Present: soft, normoactive bowel sounds. Absent: tenderness, distended - Routine Skin Exam Present: dry, warm - Routine Neurological Exam Present: alert, oriented X3 <Mary Ann Sagastume - Last Filed: 12/03/17 09:31> Vital signs: Vital Signs 12/03/17 12:00 12/03/17 16:00 12/03/17 20:00 Temperature 97.2 F L 97.8 F 98.0 F Pulse Rate 76 77 81 Respiratory Rate 18 18 Blood Pressure 111/58 L 133/61 107/53 L Pulse Oximetry 99 96 96 12/04/17 00:00 12/04/17 04:00 12/04/17 08:00 Temperature 98.1 F 98.1 F 98.1 F Pulse Rate 68 72 79 Respiratory Rate 18 18 18 Blood Pressure 112/58 L 116/59 L 124/62 Pulse Oximetry 99 98 96 Intake & Output 12/03/17 12/04/17 12/04/17 18:59 06:59 18:59 Intake Total 1060 / 1060 1095 / 1095 Output Total 400 / 400 800 / 800 Balance 660 / 660 295 / 295 Weight 101.5 kg Intake: IV 100 / 100 615 / 615 Zosyn 4.5 GM Premix 4.5 gm In 100 / 100 100 / 100 100 ml @ 200 mls/hr IV.SIG Q8H ANA MARIA Rx#:[id number] Vancomycin Inj 1,500 MG In NS 515 / 515 Inj 500 ML @ 250 mls/hr IV.SIG Q24H ANA MARIA Rx#:[id number] Oral 960 / 960 480 / 480 Output: Urine 400 / 400 800 / 800 Other: # Voids 1 Date of Last Bowel Movement 12/02/17 # Bowel Movements 1 <Juan Antonio Arce - Last Filed: 12/04/17 12:00> Results - Labs CBC & Chem 7: 12/01/17 19:40 12/03/17 06:21 Laboratory Results - last 24 hr 12/01/17 12/02/17 12/03/17 19:40 07:50 06:21 Sodium Potassium Chloride Carbon Dioxide Anion Gap BUN Creatinine 1.20 H Estimated GFR 45 L Random Glucose Hemoglobin A1c 5.8 Calcium Tumor Marker AFP 2.2 12/03/17 06:21 Sodium 141 Potassium 3.6 Chloride 104 Carbon Dioxide 27.2 Anion Gap 10 BUN 15 Creatinine 1.38 H Estimated GFR 38 L Random Glucose 121 H Hemoglobin A1c Calcium 8.3 L Tumor Marker AFP - Imaging Impressions Lower Extremity MRI 12/02/17 00:00 CONCLUSION: Elongated fluid collection in the superficial soft tissues of the distal lower leg laterally with signal characteristics suggesting hematoma. 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 Germain. Previously followed by [facility], however was removed from the transplant list when her MELD score improved. Pt has a TIPS and has not required a paracentesis since having this placed in November 2015, previously was needing therapeutic paracentesis every 2-3 weeks. Pt quit drinking in 2014. Our service has been consulted to manage the cirrhosis. Pt is currently on Lasix daily, states she has chronic swelling of BLE but that this is normal for her. Denies any abdominal pain or swelling, nausea, vomiting, changes in bowel habits. EGD done in Feb 2016 --> Esophagitis distal esophagus, gastritis, duodenitis duodenal bulb, no esophageal varices or gastric varices, S/P sleeve gastrectomy. Pathology (duodenum) no significant histopathologic abnormalities (gastric antrum) antral mucosa with reactive gastropathy, mild active chronic gastritis ( distal esophagus) acute inflammatory exudate. Colonoscopy in July 2015 --> Diminutive polyp in the cecum, diverticulosis in the sigmoid and descending colon, internal and external hemorrhoids, decreased sphincter tone. Pathology (polyp) adenomatous polyp. Office records: Last US in May of this year revealed stable US of upper abdomen, coarsened echogenicity of liver suggesting hepatocellular disease or fatty metamorphosis. There is again noted to be cholelithiasis with gallstones in place. TIPS is patent and in place. AFP in May was 3.3. Labs from May Ammonia-88 AST-62 ALT-30 Alk phos-149 T bili-0.8 - Cellulitis of RLE- per primary team (12/03) Pt feels well today, US being done at bedside during my exam, results pending. No repeat LFTs from today. AFP-2.2 Plan: Repeat US to check patency of TIPS- elevation in T bili noted Ammonia elevated but pt asymptomatic, was advised to take Xifaxan outpt but appears there was an insurance issue Xifaxan Continue Lasix/Spironolactone Monitor LFTs Avoid hepatotoxins Will continue to follow Pt has been seen and examined by myself and Dr. Arce and this note is written on his behalf <Mary Ann Sagastume - Last Filed: 12/03/17 09:31>
[2017-12-03] MEDS: Furosemide 20 MG Tablet PO SCH (09:37)
--- NOTE | 2017-12-03 10:29 | US ---
EXAM DATE: 12/03/2017 9:49 AM EDT AGE/SEX: 62 years / Female INDICATIONS: Increased lab values. CLINICAL DATA: This is the patient's initial encounter. Patient reports that signs and symptoms have been present for 2 days and indicates a pain score of 1/10. MEDICAL/SURGICAL HISTORY: Hiatal hernia. Chronic renal insufficiency. Cirrhosis. . TIPS shunt . COMPARISON: [facility] [place] - COMPLETE, 10/21/2016. . MEASUREMENTS: Liver:__ 14.0 cm. Common Bile Duct:___ 7mm. Right Kidney:___10.2 x 4.3 x 4.7 cm. Spleen: Upper limits of normal at 11.6 cm. FINDINGS: Liver: Increased echotexture without focal lesion or ductal dilation. Portal Vein: Hepatopedal flow seen in portal vein. Common Duct: No intraluminal mass or stone visualized. Gallbladder: Small stones identified within the decompressed gallbladder lumen. Pancreas: Not well visualized. Right Kidney: Normal echotexture and cortical thickness. No mass or hydronephrosis. Other: Patient has a TIPS shunt which appears to be patent throughout. No elevated velocities. The s plenic vein, splenic artery, hepatic artery, hepatic vein and portal all appear to be patent. CONCLUSION: 1. TIPS shunt appears to be patent. Hepatic and splenic vasculature also appears to be patent. 2. Diffuse hepatic fatty infiltration. 3. Gallbladder is decompressed. Cholelithiasis Electronically signed by: José Kent MD 12/03/2017 10:28 AM EDT
--- NOTE | 2017-12-03 14:48 | P.PN ---
Subjective Interval history: Patient reports that she is feeling better. She has less discomfort in the right lower extremity. I have reviewed the general surgery consultation and Dr. Chappell feels that conservative management is warranted at this time. The patient has been afebrile. She is taking p.o. well. Active Medications Generic Name Dose Route Start Last Admin Trade Name Freq PRN Reason Stop Dose Admin Dextrose 50 ml 12/01/17 18:49 D50w Vial IV.PUSH UNSCH PRN PER HYPOGLYCEMIA PROTOCOL Folic Acid 1 mg 12/02/17 09:00 12/03/17 09:35 Folic Acid PO 1 mg DAILY ANA MARIA Administration Furosemide 20 mg 12/02/17 09:00 12/03/17 09:37 Lasix PO Not Given DAILY ANA MARIA Gabapentin 400 mg 12/01/17 21:00 12/02/17 20:35 Neurontin PO 400 mg HS ANA MARIA Administration Glucagon 1 mg 12/01/17 18:49 Glucagon Inj OTHER UNSCH PRN for Hypoglycemia Protocol Piperacillin/Tazobactam/Dextrose 4.5 gm in 100 mls @ 200 mls/hr 12/01/17 20: 00 12/03/17 12:59 Zosyn 4.5 Gm Premix IV.SIG 200 mls/hr Q8H ANA MARIA Administration Pharmacy Profile Note 0 mls @ 0 mls/hr 12/01/17 19:00 Vancomycin Consult Pharmacy OTHER UNSCH ANA MARIA As Directed Vancomycin HCl 1,500 mg/ 515 mls @ 250 mls/hr 12/02/17 21:00 12/03/17 00:00 Sodium Chloride IV.SIG Infused Q24H ANA MARIA Infusion Lorazepam 0.5 mg 12/01/17 18:46 Ativan PO Q8HR PRN Anxiety Metoprolol Tartrate 25 mg 12/01/17 21:00 12/03/17 09:36 Lopressor PO 25 mg BID ANA MARIA Administration Miscellaneous Information 0 each 12/04/17 20:45 [facility] [place] Lab Info OTHER 12/04/17 20:46 ONCE ONE Pantoprazole Sodium 40 mg 12/02/17 09:00 12/03/17 09:36 Protonix PO 40 mg DAILY ANA MARIA Administration Potassium Chloride 10 meq 12/02/17 09:00 12/03/17 09:36 Kcl PO 10 meq DAILY ANA MARIA Administration Rifaximin 550 mg 12/01/17 21:00 12/03/17 09:35 Xifaxan PO 550 mg BID ANA MARIA Administration Sitagliptin Phosphate 50 mg 12/02/17 09:00 12/03/17 09:35 Januvia PO 50 mg DAILY ANA MARIA Administration Spironolactone 100 mg 12/02/17 09:00 12/03/17 09:35 Aldactone PO 100 mg DAILY ANA MARIA Administration Physical Exam Vital signs: Vital Signs 12/02/17 16:00 12/02/17 20:00 12/03/17 00:00 Temperature 98.0 F 98.0 F 98.0 F Pulse Rate 73 71 74 Respiratory Rate 18 Blood Pressure 113/65 127/64 115/60 Pulse Oximetry 100 99 99 12/03/17 04:00 12/03/17 08:00 12/03/17 12:00 Temperature 98.3 F 97.3 F L 97.2 F L Pulse Rate 71 67 76 Respiratory Rate 18 Blood Pressure 123/63 126/61 111/58 L Pulse Oximetry 99 97 99 Intake & Output 12/02/17 12/03/17 12/03/17 18:59 06:59 18:59 Intake Total 580 / 580 810 / 810 Balance 580 / 580 810 / 810 Weight 222 lb 0.088 oz Intake: IV 100 / 100 810 / 810 Zosyn 4.5 GM Premix 4.5 gm In 100 / 100 210 / 210 100 ml @ 200 mls/hr IV.SIG Q8H ANA MARIA Rx#:[id number] Vancomycin Inj 1,500 MG In NS 600 / 600 Inj 500 ML @ 250 mls/hr IV.SIG Q24H ANA MARIA Rx#:[id number] Oral 480 / 480 Other: # Voids 6 Date of Last Bowel Movement 12/02/17 12/01/17 # Bowel Movements 1 Narrative: The right lower extremity reveals 1+ edema of the lower leg and ankle. There is a fluctuant mass on the anterior lower leg consistent with a hematoma in the middle third of the lower leg. Overlying the hematoma on the anterior lower leg is a 4.5 x 6 cm open area with a 2.5 x 4 cm eschar. When the dressing was removed, there was bleeding from the open area which stopped with direct pressure. The previous erythema which included the entire anterior lower leg has receded significantly. There is now pale erythema around the open area. The erythema is no longer circumferential. Results - Labs CBC & Chem 7: 12/01/17 19:40 12/03/17 06:21 Laboratory Results - last 24 hr 12/01/17 12/03/17 12/03/17 19:40 06:21 06:21 Sodium 141 Potassium 3.6 Chloride 104 Carbon Dioxide 27.2 Anion Gap 10 BUN 15 Creatinine 1.38 H Estimated GFR 38 L Random Glucose 121 H Hemoglobin A1c 5.8 Calcium 8.3 L Tumor Marker AFP 2.2 - Imaging Impressions Lower Extremity MRI 12/02/17 00:00 CONCLUSION: Elongated fluid collection in the superficial soft tissues of the distal lower leg laterally with signal characteristics suggesting hematoma. Liver Ultrasound 12/03/17 00:00 CONCLUSION: 1. TIPS shunt appears to be patent. Hepatic and splenic vasculature also appears to be patent. 2. Diffuse hepatic fatty infiltration. 3. Gallbladder is decompressed. Cholelithiasis Assessment and Plan - Assessment (1) Cellulitis of right lower extremity Code(s): L03.115 - Cellulitis of right lower limb Status: Acute Plan: The cellulitis is improving. The patient is receiving IV vancomycin and cefepime. I will consult infectious disease for assistance with timing of transition to oral antibiotics and choice of oral antibiotics. (2) Hematoma of right lower extremity Code(s): S80.11XA - Contusion of right lower leg, initial encounter Status: Acute Plan: Continue with wound care and conservative management as recommended by general surgery.. (3) Cirrhosis Code(s): K74.60 - Unspecified cirrhosis of liver Status: Chronic Plan: The patient has a history of cirrhosis due to alcohol consumption and hepato- steatosis. Currently stable. The patient does have an elevated ammonia level but remains asymptomatic. She will continue with current medications. (4) Type 2 diabetes mellitus Code(s): E11.9 - Type 2 diabetes mellitus without complications Status: Chronic Plan: Continue with current oral hypoglycemic agents. The patient is refusing bedside glucose monitoring and diabetic diet. (5) Iron deficiency anemia Code(s): D50.9 - Iron deficiency anemia, unspecified Status: Chronic Plan: The patient reports that she has not been taking her ferrous sulfate daily. Iron level is low. H&H is low but stable. I have ordered ferrous sulfate to be given daily. She does have a component of anemia of chronic disease in addition to the iron deficiency. (6) Gastroesophageal reflux disease Code(s): K21.9 - Gastro-esophageal reflux disease without esophagitis Status: Chronic (7) Hypertension Code(s): I10 - Essential (primary) hypertension Status: Chronic Plan: Blood pressure under adequate control with metoprolol. Will follow. (8) Anxiety Code(s): F41.9 - Anxiety disorder, unspecified Status: Chronic Plan: Patient has a history of anxiety and receives lorazepam as needed. - Attending Attestation I will be out of town beginning November at 7 AM. [facility] on Saturday, December 09, 2017. (3) Cirrhosis Qualifiers: Hepatic cirrhosis type: other cirrhosis Qualified Code(s): K74.69 - Other cirrhosis of liver (4) Type 2 diabetes mellitus Qualifiers: Diabetes mellitus ad terminal makeup operator insulin use: without ad terminal makeup operator use Diabetes mellitus complication status: without complication Qualified Code(s): E11.9 - Type 2 diabetes mellitus without complications (5) Iron deficiency anemia Qualifiers: Iron deficiency anemia type: unspecified iron deficiency Qualified Code(s): D50.9 - Iron deficiency anemia, unspecified (6) Gastroesophageal reflux disease Qualifiers: Esophagitis presence: without esophagitis Qualified Code(s): K21.9 - Gastro- esophageal reflux disease without esophagitis (7) Hypertension Qualifiers: Hypertension type: essential hypertension Qualified Code(s): I10 - Essential (primary) hypertension
--- NOTE | 2017-12-03 16:07 | P.PNGS ---
<Deena Avila - Last Filed: 12/03/17 16:02> Subjective Interval history: Resting in bed; awaiting breakfast Physical Exam Vital signs: Vital Signs 12/02/17 20:00 12/03/17 00:00 12/03/17 04:00 Temperature 98.0 F 98.0 F 98.3 F Pulse Rate 71 74 71 Respiratory Rate 18 18 18 Blood Pressure 127/64 115/60 123/63 Pulse Oximetry 99 99 99 12/03/17 08:00 12/03/17 12:00 Temperature 97.3 F L 97.2 F L Pulse Rate 67 76 Respiratory Rate 18 18 Blood Pressure 126/61 111/58 L Pulse Oximetry 97 99 Intake & Output 12/02/17 12/03/17 12/03/17 18:59 06:59 18:59 Intake Total 580 / 580 810 / 810 Balance 580 / 580 810 / 810 Weight 100.7 kg Intake: IV 100 / 100 810 / 810 Zosyn 4.5 GM Premix 4.5 gm In 100 / 100 210 / 210 100 ml @ 200 mls/hr IV.SIG Q8H ANA MARIA Rx#:[id number] Vancomycin Inj 1,500 MG In NS 600 / 600 Inj 500 ML @ 250 mls/hr IV.SIG Q24H ANA MARIA Rx#:[id number] Oral 480 / 480 Other: # Voids 6 Date of Last Bowel Movement 12/02/17 12/01/17 # Bowel Movements 1 Narrative: Alert and awake Cardio: RRR Resp: CTAB Abd: soft RIGHT lower leg--- dressing removed; necrotic skin; + edema Assessment and Plan - Assessment (1) Hematoma of right lower extremity Code(s): S80.11XA - Contusion of right lower leg, initial encounter Status: Acute Plan: 62 year old female with RIGHT leg hematoma -Will continue dressings and change PRN -Will continue to monitor over the next 24 -48 hours -Continue antibiotics -Will continue conservative treatment for now <Kg Lama - Last Filed: 12/03/17 18:53> Subjective Interval history: DAILY PROGRESS NOTE FOR SURGICAL ATTENDING, DR. KG LAMA Physical Exam Vital signs: Vital Signs 12/02/17 20:00 12/03/17 00:00 12/03/17 04:00 Temperature 98.0 F 98.0 F 98.3 F Pulse Rate 71 74 71 Respiratory Rate 18 18 18 Blood Pressure 127/64 115/60 123/63 Pulse Oximetry 99 99 99 12/03/17 08:00 12/03/17 12:00 12/03/17 16:00 Temperature 97.3 F L 97.2 F L 97.8 F Pulse Rate 67 76 77 Respiratory Rate 18 18 16 Blood Pressure 126/61 111/58 L 133/61 Pulse Oximetry 97 99 96 Intake & Output 12/02/17 12/03/17 12/03/17 18:59 06:59 18:59 Intake Total 580 / 580 810 / 810 1060 / 1060 Output Total 400 / 400 Balance 580 / 580 810 / 810 660 / 660 Weight 100.7 kg Intake: IV 100 / 100 810 / 810 100 / 100 Zosyn 4.5 GM Premix 4.5 gm In 100 / 100 210 / 210 100 / 100 100 ml @ 200 mls/hr IV.SIG Q8H ANA MARIA Rx#:[id number] Vancomycin Inj 1,500 MG In NS 600 / 600 Inj 500 ML @ 250 mls/hr IV.SIG Q24H ANA MARIA Rx#:[id number] Oral 480 / 480 960 / 960 Output: Urine 400 / 400 Other: # Voids 6 Date of Last Bowel Movement 12/02/17 12/01/17 # Bowel Movements 1 1 Assessment and Plan - Assessment (1) Hematoma of right lower extremity Code(s): S80.11XA - Contusion of right lower leg, initial encounter Status: Acute - Attending Attestation NOTE FOR SURGICAL ATTENDING, DR. KG LAMA I agree with above assessment and plan. The exam, history, and the medical decision-making described in the above note were completed with the assistance of the mid-level provider. I reviewed and agree with the findings presented. I attest that I had a [id number] encounter with the patient on the same day, and personally performed and documented my assessment and findings in the medical record. The following services were provided during this hospital visit: Chart data review, vital sign assessments/reviewing monitor data Review of consultations notes if present. Medication orders/review and/or management Ordering and/or reviewing lab tests Ordering and/or interpreting/reviewing x-rays and/or diagnostic studies Care of the patient and discussion of the patient with the care team Documentation time To help prompt me to consider important information that might be impacting today's encounter and assessment, Information from prior notes written by myself or my colleagues may have been "brought forward/copy and pasted" into today's note.
--- NOTE | 2017-12-03 19:10 | MB ---
cc: Boni King MD DATE: 12/03/2017 REQUESTING PHYSICIAN: Dr. Loving. HISTORY OF PRESENT ILLNESS: This is a 62-year-old white female with history of cirrhosis. Presents with cellulitis and hematoma of the right lower extremity. Please assist with timing of transition to oral antibiotic and selection of oral antibiotic. HISTORY OF PRESENT ILLNESS: This is a 62-year-old white female who bumped her right tibia against an object and developed swelling of the right lower extremity. She was observing the area and it appeared to be more erythematous when she saw her physician, and she was given oral amoxicillin, which she took for 3 days and she had spreading erythema at the upper portion of the tibia, away from the location where the hematoma had formed. She also noted that she was having some bloody drainage coming from the bone. Because she was not improving, she was admitted to the hospital, was started on IV antibiotics. Her initial injury was sustained when she slipped on a wet floor. She denies fever, chills, nausea, vomiting, or other symptoms. She has mild pain in the right leg, which she said has improved significantly. There is a demarcation on the right anterior tibia with erythema that has spread. It has receded significantly from that bethany. The patient is afebrile. White blood cell count is normal. This consult is requested for antibiotic recommendations. PAST MEDICAL HISTORY: Type 2 diabetes mellitus, chronic kidney disease, cirrhosis of the liver, hypertension, hyperlipidemia, iron-deficiency anemia, gastroesophageal reflux disease, hypothyroidism, history of MRI. History of mixed connective tissue disorder, history of tonsillectomy and adenoidectomy, history of gastric sleeve for obesity in 2011. ALLERGIES: KEREN INHIBITORS. MEDICATIONS: 1. Vancomycin. 2. Piperacillin/tazobactam. 3. Rifaximin. 4. Potassium. 5. Aldactone. 6. Protonix. 7. Lopressor. 8. Neurontin. 9. Folic acid. SOCIAL HISTORY: No tobacco use. Positive alcohol. No history of substance abuse. FAMILY HISTORY: Noncontributory. REVIEW OF SYSTEMS: All systems have been reviewed and are negative, except for pain in the right lower extremity. PHYSICAL EXAMINATION: GENERAL: Well-developed female in no acute distress. She is awake and alert and oriented. VITAL SIGNS: Temperature 97.2, BP 111/58, respirations 18, heart rate 76. HEENT: Head is atraumatic. Extraocular movements are grossly intact. Pupils reactive to light. No icterus. Oropharynx moist mucosa without lesions. NECK: Supple without adenopathy. LUNGS: Clear breath sounds. HEART: Regular S1, S2. No audible murmurs, rubs, or gallops. ABDOMEN: Benign, soft, nontender. Bowel sounds present. RECTAL: Not performed. EXTREMITIES: The right tibia is markedly swollen and there is a superficial ulcerative area with mild necrosis of the skin layer. There is a large raised area where the hematoma had formed. There is very mild erythema now located mostly above the raised area and below where the mass was made for the prior erythema extension. There is swelling of the right tibia. Mild warmth. The right ankle is also swollen. The remaining extremities have no clubbing, cyanosis, or edema. SKIN: No diffuse rash. NEUROLOGIC: No gross focal finding. PSYCHIATRIC: Calm and cooperative. LABORATORY DATA: WBC 6.6, platelets 221,000, hemoglobin 10.2, 82% neutrophils. Creatinine 1.38, estimated GFR 38. Sodium 141. IMPRESSION: Cellulitis of the right lower extremity following development of hematoma secondary to trauma. Cellulitis appears to be improving and in my estimation there is significant improvement based on the description of the extent of involvement and a line of demarcation of the erythema. I suspect this is likely infection due to Staphylococcus or strep bacteria. RECOMMENDATIONS: Continue the IV antibiotic for another day or 2 and after that I think she can be discharged on oral Keflex for another week. If after discharge there is any regression of the infection, she can be referred to outpatient infectious disease for additional evaluation. Thank you for this consultation. MD BELL White/[place] , 05:17 PM , 05:34 PM
[2017-12-03] MEDS: Gabapentin 400 MG Capsule PO SCH (22:03)
[2017-12-03] MEDS: Vancomycin Inj 1,500 MG in Sodium Chlor 0.9% Inj 500 ML IV.SIG SCH (22:04)
[2017-12-04] MEDS: Piperacil/Tazo 4.5 GM Premix 4.5 GM/100 ML BAG IV.SIG SCH ×3 (05:05→21:17)
[2017-12-04] MEDS: Folic Acid 1 MG Tablet PO SCH (09:04)
[2017-12-04] MEDS: Metoprolol Tartrate 25 MG Tablet PO SCH ×2 (09:04→21:16)
[2017-12-04] MEDS: Potassium Chloride 10 MEQ ER Capsule PO SCH (09:04)
[2017-12-04] MEDS: Ferrous Sulfate 325 MG Tablet PO SCH (09:04)
[2017-12-04] MEDS: Furosemide 20 MG Tablet PO SCH (09:05)
[2017-12-04] MEDS: rifAXIMin 550 MG Tablet PO SCH ×2 (09:05→21:17)
--- NOTE | 2017-12-04 12:12 | P.PNGI ---
Subjective Interval history: Pt with no GI complaints at this time <Mary Ann Sagastume - Last Filed: 12/04/17 12:10> Interval history: Patient is doing well, no GI issue at this time, no encephalopathy, okay to sign off and follow up with Dr. Germain as an outpatient, continue the regular medication <ColtmariamaJuan Antonio - Last Filed: 12/04/17 16:28> Physical Exam Vital signs: Vital Signs 12/03/17 16:00 12/03/17 20:00 12/04/17 00:00 Temperature 97.8 F 98.0 F 98.1 F Pulse Rate 77 81 68 Respiratory Rate 16 18 18 Blood Pressure 133/61 107/53 L 112/58 L Pulse Oximetry 96 96 99 12/04/17 04:00 12/04/17 08:00 Temperature 98.1 F 98.1 F Pulse Rate 72 79 Respiratory Rate 18 18 Blood Pressure 116/59 L 124/62 Pulse Oximetry 98 96 Intake & Output 12/03/17 12/04/17 12/04/17 18:59 06:59 18:59 Intake Total 1060 / 1060 1095 / 1095 Output Total 400 / 400 800 / 800 Balance 660 / 660 295 / 295 Weight 101.5 kg Intake: IV 100 / 100 615 / 615 Zosyn 4.5 GM Premix 4.5 gm In 100 / 100 100 / 100 100 ml @ 200 mls/hr IV.SIG Q8H ANA MARIA Rx#:[id number] Vancomycin Inj 1,500 MG In NS 515 / 515 Inj 500 ML @ 250 mls/hr IV.SIG Q24H ANA MARIA Rx#:[id number] Oral 960 / 960 480 / 480 Output: Urine 400 / 400 800 / 800 Other: # Voids 1 Date of Last Bowel Movement 12/02/17 # Bowel Movements 1 - Constitutional no acute distress - Routine HEENT Exam Head: Present: normocephalic, atraumatic Eye: Present: conjunctival icterus - Routine Respiratory Exam Absent: accessory muscle use - Routine Abdominal Exam Present: soft, normoactive bowel sounds. Absent: tenderness, distended - Routine Skin Exam Present: dry, warm - Routine Neurological Exam Present: alert, oriented X3 <Mary Ann Sagastume - Last Filed: 12/04/17 12:10> Vital signs: Vital Signs 12/03/17 20:00 12/04/17 00:00 12/04/17 04:00 Temperature 98.0 F 98.1 F 98.1 F Pulse Rate 81 68 72 Respiratory Rate 18 18 18 Blood Pressure 107/53 L 112/58 L 116/59 L Pulse Oximetry 96 99 98 12/04/17 08:00 12/04/17 12:00 Temperature 98.1 F 98.0 F Pulse Rate 79 76 Respiratory Rate 18 16 Blood Pressure 124/62 123/60 Pulse Oximetry 96 98 Intake & Output 12/03/17 12/04/17 12/04/17 18:59 06:59 18:59 Intake Total 1060 / 1060 1095 / 1095 100 / 100 Output Total 400 / 400 800 / 800 Balance 660 / 660 295 / 295 100 / 100 Weight 101.5 kg Intake: IV 100 / 100 615 / 615 100 / 100 Zosyn 4.5 GM Premix 4.5 gm In 100 / 100 100 / 100 100 / 100 100 ml @ 200 mls/hr IV.SIG Q8H ANA MARIA Rx#:[id number] Vancomycin Inj 1,500 MG In NS 515 / 515 Inj 500 ML @ 250 mls/hr IV.SIG Q24H ANA MARIA Rx#:[id number] Oral 960 / 960 480 / 480 Output: Urine 400 / 400 800 / 800 Other: # Voids 1 Date of Last Bowel Movement 12/02/17 # Bowel Movements 1 <ClaudeAmmar - Last Filed: 12/04/17 16:28> Results - Labs CBC & Chem 7: 12/01/17 19:40 12/04/17 06:02 Laboratory Results - last 24 hr 12/04/17 06:02 Creatinine 1.20 H Estimated GFR 45 L <Mary Ann Sagastume - Last Filed: 12/04/17 12:10> - Labs CBC & Chem 7: 12/01/17 19:40 12/04/17 06:02 Laboratory Results - last 24 hr 12/04/17 06:02 Creatinine 1.20 H Estimated GFR 45 L <ClaudeAmmar - Last Filed: 12/04/17 16:28> Assessment and Plan - Plan Assessment: - 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 Germain. Previously followed by [facility], however was removed from the transplant list when her MELD score improved. Pt has a TIPS and has not required a paracentesis since having this placed in November 2015, previously was needing therapeutic paracentesis every 2-3 weeks. Pt quit drinking in 2014. Our service has been consulted to manage the cirrhosis. Pt is currently on Lasix daily, states she has chronic swelling of BLE but that this is normal for her. Denies any abdominal pain or swelling, nausea, vomiting, changes in bowel habits. EGD done in Feb 2016 --> Esophagitis distal esophagus, gastritis, duodenitis duodenal bulb, no esophageal varices or gastric varices, S/P sleeve gastrectomy. Pathology (duodenum) no significant histopathologic abnormalities (gastric antrum) antral mucosa with reactive gastropathy, mild active chronic gastritis ( distal esophagus) acute inflammatory exudate. Colonoscopy in July 2015 --> Diminutive polyp in the cecum, diverticulosis in the sigmoid and descending colon, internal and external hemorrhoids, decreased sphincter tone. Pathology (polyp) adenomatous polyp. Office records: Last US in May of this year revealed stable US of upper abdomen, coarsened echogenicity of liver suggesting hepatocellular disease or fatty metamorphosis. There is again noted to be cholelithiasis with gallstones in place. TIPS is patent and in place. AFP in May was 3.3. Labs from May Ammonia-88 AST-62 ALT-30 Alk phos-149 T bili-0.8 - Cellulitis of RLE- per primary team (12/03) Pt feels well today, US being done at bedside during my exam, results pending. No repeat LFTs from today. AFP-2.2 (12/04) Pt with no GI complaints, US revealed patent TIPS. Plan: Xifaxan Continue Lasix/Spironolactone Monitor LFTs Avoid hepatotoxins Our service will sign off Continue with current care Have pt follow up as scheduled outpatient with [facility] and Dr. Germain Pt has been seen and examined by myself and Dr. Arce and this note is written on his behalf <Mary Ann Sagastume - Last Filed: 12/04/17 12:10>
--- NOTE | 2017-12-04 12:34 | P.PNID ---
Subjective Remarks: Patient notes that she has been getting up very frequently through the night and going to the bathroom to urinate. She notes that she received more than her usual Lasix. The right tibia erythema looks worse however the redness seems to recede when she lays down. She has some bloody drainage coming from the superficially ulcerated area. States the room is cold. She denies chills. Afebrile. HISTORY OF PRESENT ILLNESS: This is a 62-year-old white female who bumped her right tibia against an object and developed swelling of the right lower extremity. She was observing the area and it appeared to be more erythematous when she saw her physician, and she was given oral amoxicillin, which she took for 3 days and she had spreading erythema at the upper portion of the tibia, away from the location where the hematoma had formed. She also noted that she was having some bloody drainage coming from the leg. Past Medical History: PAST MEDICAL HISTORY: Type 2 diabetes mellitus, chronic kidney disease, cirrhosis of the liver, hypertension, hyperlipidemia, iron-deficiency anemia, gastroesophageal reflux disease, hypothyroidism, history of MRI. History of mixed connective tissue disorder, history of tonsillectomy and adenoidectomy, history of gastric sleeve for obesity in 2011. Allergies/Adverse Reactions: Allergies diazepam Allergy (Severe, Verified 12/03/17 09:35) MAKES PT VERY AGITATED latex Allergy (Severe, Verified 12/03/17 09:35) Wheezing LATEX Adverse Reaction (Severe, Uncoded 12/03/17 09:35) Wheezing Objective Vital Signs 12/03/17 16:00 12/03/17 20:00 12/04/17 00:00 Temperature 97.8 F 98.0 F 98.1 F Pulse Rate 77 81 68 Respiratory Rate 16 18 18 Blood Pressure 133/61 107/53 L 112/58 L Pulse Oximetry 96 96 99 12/04/17 04:00 12/04/17 08:00 Temperature 98.1 F 98.1 F Pulse Rate 72 79 Respiratory Rate 18 18 Blood Pressure 116/59 L 124/62 Pulse Oximetry 98 96 Intake & Output 12/03/17 12/04/17 12/04/17 18:59 06:59 18:59 Intake Total 1060 / 1060 1095 / 1095 Output Total 400 / 400 800 / 800 Balance 660 / 660 295 / 295 Weight 101.5 kg Intake: IV 100 / 100 615 / 615 Zosyn 4.5 GM Premix 4.5 gm In 100 / 100 100 / 100 100 ml @ 200 mls/hr IV.SIG Q8H ANA MARIA Rx#:[id number] Vancomycin Inj 1,500 MG In NS 515 / 515 Inj 500 ML @ 250 mls/hr IV.SIG Q24H ANA MARIA Rx#:[id number] Oral 960 / 960 480 / 480 Output: Urine 400 / 400 800 / 800 Other: # Voids 1 Date of Last Bowel Movement 12/02/17 # Bowel Movements 1 Lab - Chemistry Results 12/01/17 12/03/17 12/03/17 19:40 06:21 06:21 Sodium 141 Potassium 3.6 Chloride 104 Carbon Dioxide 27.2 Anion Gap 10 BUN 15 Creatinine 1.38 H Estimated GFR 38 L Random Glucose 121 H Hemoglobin A1c 5.8 Calcium 8.3 L Tumor Marker AFP 2.2 12/04/17 06:02 Sodium Potassium Chloride Carbon Dioxide Anion Gap BUN Creatinine 1.20 H Estimated GFR 45 L Random Glucose Hemoglobin A1c Calcium Tumor Marker AFP Imaging: ITS Impressions Lower Extremity MRI 12/02/17 00:00 CONCLUSION: Elongated fluid collection in the superficial soft tissues of the distal lower leg laterally with signal characteristics suggesting hematoma. Liver Ultrasound 12/03/17 00:00 CONCLUSION: 1. TIPS shunt appears to be patent. Hepatic and splenic vasculature also appears to be patent. 2. Diffuse hepatic fatty infiltration. 3. Gallbladder is decompressed. Cholelithiasis Physical Exam: PHYSICAL EXAMINATION: GENERAL: No acute distress. She is awake and alert and oriented. HEENT: Head is atraumatic. Extraocular movements are grossly intact. Pupils reactive to light. No icterus. Oropharynx moist mucosa without lesions. LUNGS: Clear breath sounds. HEART: Regular S1, S2. No audible murmurs, rubs, or gallops. ABDOMEN: Benign, soft, nontender. Bowel sounds present. EXTREMITIES: The right tibia is markedly swollen and there is a superficial ulcerative area with mild necrosis of the skin layer. There is erythema now located mostly above the raised area and looks slightly worse than yesterday. Mild warmth. SKIN: No diffuse rash. NEUROLOGIC: No gross focal finding. PSYCHIATRIC: Calm and cooperative. Assessment and Plan - Plan IMPRESSION: Cellulitis of the right lower extremity following development of hematoma secondary to trauma. Cellulitis appears to be slightly worse than yesterday. However this may be because she was getting up frequently to go to the bathroom and putting pressure on the tibia. RECOMMENDATIONS: Continue the IV antibiotic for another day or 2 and after that I think she can be discharged on oral Keflex for another week unless it is not improving satisfactorily and therefore May be preferable to continue the antibiotic IV. I will be out of town tomorrow Friday and this weekend. Other ID doctor covering for me in my absence.
--- NOTE | 2017-12-04 13:20 | P.PN ---
Subjective Interval history: Follow-up right lower extremity cellulitis/hematoma December 04, 2017-patient seen and examined, she reports some improvement of right lower extremity cellulitis however case was discussed with infectious disease specialist who states has been some slight worsening compared to yesterday evaluation. Patient states he has been up and using the bathroom to urinate. States she takes Lasix twice a week. She denies any abdominal pain, nausea or vomiting. Physical Exam Vital signs: Vital Signs 12/03/17 16:00 12/03/17 20:00 12/04/17 00:00 Temperature 97.8 F 98.0 F 98.1 F Pulse Rate 77 81 68 Respiratory Rate 16 18 18 Blood Pressure 133/61 107/53 L 112/58 L Pulse Oximetry 96 96 99 12/04/17 04:00 12/04/17 08:00 Temperature 98.1 F 98.1 F Pulse Rate 72 79 Respiratory Rate 18 18 Blood Pressure 116/59 L 124/62 Pulse Oximetry 98 96 Intake & Output 12/03/17 12/04/17 12/04/17 18:59 06:59 18:59 Intake Total 1060 / 1060 1095 / 1095 100 / 100 Output Total 400 / 400 800 / 800 Balance 660 / 660 295 / 295 100 / 100 Weight 101.5 kg Intake: IV 100 / 100 615 / 615 100 / 100 Zosyn 4.5 GM Premix 4.5 gm In 100 / 100 100 / 100 100 / 100 100 ml @ 200 mls/hr IV.SIG Q8H ANA MARIA Rx#:[id number] Vancomycin Inj 1,500 MG In NS 515 / 515 Inj 500 ML @ 250 mls/hr IV.SIG Q24H ANA MARIA Rx#:[id number] Oral 960 / 960 480 / 480 Output: Urine 400 / 400 800 / 800 Other: # Voids 1 Date of Last Bowel Movement 12/02/17 # Bowel Movements 1 Narrative: GENERAL: NAD SKIN: Warm and dry. HEAD: Normocephalic. EYES: No scleral icterus. No injection or drainage. NECK: Supple, trachea midline. No JVD or lymphadenopathy. CARDIOVASCULAR: Regular rate and rhythm without murmurs, gallops, or rubs. RESPIRATORY: Breath sounds equal bilaterally. No accessory muscle use. GASTROINTESTINAL: Abdomen soft, non-tender, nondistended. RIGHT lower leg--- dressing removed; necrotic skin; + edema Results - Labs CBC & Chem 7: 12/01/17 19:40 12/04/17 06:02 Laboratory Results - last 24 hr 12/04/17 06:02 Creatinine 1.20 H Estimated GFR 45 L Assessment and Plan - Assessment (1) Hematoma of right lower extremity Code(s): S80.11XA - Contusion of right lower leg, initial encounter Status: Acute (2) Cellulitis of right lower extremity Code(s): L03.115 - Cellulitis of right lower limb Status: Acute (3) Type 2 diabetes mellitus Code(s): E11.9 - Type 2 diabetes mellitus without complications Status: Chronic (4) Gastroesophageal reflux disease Code(s): K21.9 - Gastro-esophageal reflux disease without esophagitis Status: Chronic (5) Hypertension Code(s): I10 - Essential (primary) hypertension Status: Chronic (6) Anxiety Code(s): F41.9 - Anxiety disorder, unspecified Status: Chronic - Plan 62-year-old female with Right lower extremity cellulitis Currently on vancomycin and cefepime 1-2 more days, then switch to p.o. Keflex per ID from the case was discussed today Right lower extremity hematoma Appreciate input from general surgery, continue with current conservative management Cirrhosis due to alcohol and fatty liver Appreciate input from gastroenterology, who signed off today Continue Xifaxan, Lasix and Aldactone Follow-up with Dr. Germain and scheduled outpatient with [facility] Diabetes type 2 Treated with oral hypoglycemic agents Patient has been refusing fingerstick blood glucose monitoring History of iron deficiency anemia Continue with ferrous sulfate Hypertension Normotensive on Lopressor GERD Stable (3) Type 2 diabetes mellitus Qualifiers: Diabetes mellitus detention insulin use: without detention use Diabetes mellitus complication status: without complication Qualified Code(s): E11.9 - Type 2 diabetes mellitus without complications (4) Gastroesophageal reflux disease Qualifiers: Esophagitis presence: without esophagitis Qualified Code(s): K21.9 - Gastro- esophageal reflux disease without esophagitis (5) Hypertension Qualifiers: Hypertension type: essential hypertension Qualified Code(s): I10 - Essential (primary) hypertension
--- NOTE | 2017-12-04 14:27 | P.DCO ---
- Home Health Nursing Order: Medical education, Signs/symptoms of disease process, Wound care and dressing changes - Certification I have seen patient Nicolette Lafleur on 12/04/17. My clinical findings support the need for the requested home health care services because: Deconditioned with increased weakness I certify that my clinical findings support that this patient is homebound because: Poor cardiac reserve
--- NOTE | 2017-12-04 16:14 | P.PNGS ---
<Deena Avila - Last Filed: 12/04/17 16:12> Subjective Interval history: Resting in bed No issues overnight Physical Exam Vital signs: Vital Signs 12/03/17 20:00 12/04/17 00:00 12/04/17 04:00 Temperature 98.0 F 98.1 F 98.1 F Pulse Rate 81 68 72 Respiratory Rate 18 18 18 Blood Pressure 107/53 L 112/58 L 116/59 L Pulse Oximetry 96 99 98 12/04/17 08:00 12/04/17 12:00 Temperature 98.1 F 98.0 F Pulse Rate 79 76 Respiratory Rate 18 16 Blood Pressure 124/62 123/60 Pulse Oximetry 96 98 Intake & Output 12/03/17 12/04/17 12/04/17 18:59 06:59 18:59 Intake Total 1060 / 1060 1095 / 1095 100 / 100 Output Total 400 / 400 800 / 800 Balance 660 / 660 295 / 295 100 / 100 Weight 101.5 kg Intake: IV 100 / 100 615 / 615 100 / 100 Zosyn 4.5 GM Premix 4.5 gm In 100 / 100 100 / 100 100 / 100 100 ml @ 200 mls/hr IV.SIG Q8H ANA MARIA Rx#:[id number] Vancomycin Inj 1,500 MG In NS 515 / 515 Inj 500 ML @ 250 mls/hr IV.SIG Q24H ANA MARIA Rx#:[id number] Oral 960 / 960 480 / 480 Output: Urine 400 / 400 800 / 800 Other: # Voids 1 Date of Last Bowel Movement 12/02/17 # Bowel Movements 1 Narrative: Resting in bed Cardio: RRR Resp: CTAB Abd: soft non tender RIGHT leg ----dressing removed---hematoma to lower RIGHT leg--- redness decreased from yesterday; still with necrotic tissue Assessment and Plan - Assessment (1) Hematoma of right lower extremity Code(s): S80.11XA - Contusion of right lower leg, initial encounter Status: Acute Plan: 62 year old female with RIGHT leg hematoma s/p fall -Will continue dressings and change PRN -Will continue to monitor over the next 24 -48 hours -Continue antibiotics per ID -Will continue conservative treatment for now----area surrounding and edema improved from yesterday <Kg Lama - Last Filed: 12/04/17 18:41> Physical Exam Vital signs: Vital Signs 12/03/17 20:00 12/04/17 00:00 12/04/17 04:00 Temperature 98.0 F 98.1 F 98.1 F Pulse Rate 81 68 72 Respiratory Rate 18 18 18 Blood Pressure 107/53 L 112/58 L 116/59 L Pulse Oximetry 96 99 98 12/04/17 08:00 12/04/17 12:00 12/04/17 16:00 Temperature 98.1 F 98.0 F 98.0 F Pulse Rate 79 76 60 Respiratory Rate 18 18 Blood Pressure 124/62 123/60 138/63 Pulse Oximetry 96 98 96 Intake & Output 12/03/17 12/04/17 12/04/17 18:59 06:59 18:59 Intake Total 1060 / 1060 1095 / 1095 1196 / 1196 Output Total 400 / 400 800 / 800 1500 / 1500 Balance 660 / 660 295 / 295 -304 / -304 Weight 101.5 kg Intake: IV 100 / 100 615 / 615 100 / 100 Zosyn 4.5 GM Premix 4.5 gm In 100 / 100 100 / 100 100 / 100 100 ml @ 200 mls/hr IV.SIG Q8H ANA MARIA Rx#:[id number] Vancomycin Inj 1,500 MG In NS 515 / 515 Inj 500 ML @ 250 mls/hr IV.SIG Q24H ANA MARIA Rx#:[id number] Oral 960 / 960 480 / 480 1096 / 1096 Output: Urine 400 / 400 800 / 800 1500 / 1500 Other: # Voids 1 Date of Last Bowel Movement 12/02/17 # Bowel Movements 1 1 Assessment and Plan - Assessment (1) Hematoma of right lower extremity Code(s): S80.11XA - Contusion of right lower leg, initial encounter Status: Acute - Attending Attestation NOTE FOR SURGICAL ATTENDING, DR. KG LAMA I agree with above assessment and plan. The exam, history, and the medical decision-making described in the above note were completed with the assistance of the mid-level provider. I reviewed and agree with the findings presented. I attest that I had a [id number] encounter with the patient on the same day, and personally performed and documented my assessment and findings in the medical record. The following services were provided during this hospital visit: Chart data review, vital sign assessments/reviewing monitor data Review of consultations notes if present. Medication orders/review and/or management Ordering and/or reviewing lab tests Ordering and/or interpreting/reviewing x-rays and/or diagnostic studies Care of the patient and discussion of the patient with the care team Documentation time To help prompt me to consider important information that might be impacting today's encounter and assessment, Information from prior notes written by myself or my colleagues may have been "brought forward/copy and pasted" into today's note.
[2017-12-04] MEDS ORDERED: Pharmacy Ordered Lab Info OTHER ONE (20:45)
[2017-12-04] MEDS: Gabapentin 400 MG Capsule PO SCH (21:16)
[2017-12-04] MEDS: Vancomycin Inj 1,500 MG in Sodium Chlor 0.9% Inj 500 ML IV.SIG SCH (22:59)
[2017-12-05] MEDS: Piperacil/Tazo 4.5 GM Premix 4.5 GM/100 ML BAG IV.SIG SCH ×3 (05:22→20:58)
[2017-12-05] MEDS: Metoprolol Tartrate 25 MG Tablet PO SCH ×2 (08:35→20:59)
[2017-12-05] MEDS: rifAXIMin 550 MG Tablet PO SCH ×2 (08:35→20:59)
[2017-12-05] MEDS: Potassium Chloride 10 MEQ ER Capsule PO SCH (08:36)
[2017-12-05] MEDS: Ferrous Sulfate 325 MG Tablet PO SCH (08:36)
[2017-12-05] MEDS: Furosemide 20 MG Tablet PO SCH (08:37)
[2017-12-05] MEDS: Folic Acid 1 MG Tablet PO SCH (08:37)
--- NOTE | 2017-12-05 11:25 | P.PN ---
Subjective Interval history: Follow-up right lower extremity cellulitis/hematoma December 04, 2017-patient seen and examined, she reports some improvement of right lower extremity cellulitis however case was discussed with infectious disease specialist who states has been some slight worsening compared to yesterday evaluation. Patient states he has been up and using the bathroom to urinate. States she takes Lasix twice a week. She denies any abdominal pain, nausea or vomiting. December 05, 2017-patient seen and examined, complains of throbbing pain to right foot. Afebrile Physical Exam Vital signs: Vital Signs 12/04/17 12:00 12/04/17 16:00 12/04/17 20:00 Temperature 98.0 F 98.0 F 98.2 F Pulse Rate 76 60 77 Respiratory Rate 18 Blood Pressure 123/60 138/63 118/53 L Pulse Oximetry 98 96 98 12/05/17 00:00 12/05/17 04:00 12/05/17 08:00 Temperature 98.2 F 98.2 F 98.3 F Pulse Rate 81 75 65 Respiratory Rate 17 Blood Pressure 132/62 120/60 114/56 L Pulse Oximetry 95 96 99 Intake & Output 12/04/17 12/05/17 12/05/17 18:59 06:59 18:59 Intake Total 1196 / 1196 715 / 715 Output Total 1500 / 1500 Balance -304 / -304 715 / 715 Weight 102.7 kg Intake: IV 100 / 100 715 / 715 Zosyn 4.5 GM Premix 4.5 gm In 100 / 100 200 / 200 100 ml @ 200 mls/hr IV.SIG Q8H ANA MARIA Rx#:[id number] Vancomycin Inj 1,500 MG In NS 515 / 515 Inj 500 ML @ 250 mls/hr IV.SIG Q24H AAN MARIA Rx#:[id number] Oral 1096 / 1096 Output: Urine 1500 / 1500 Other: # Bowel Movements 1 Narrative: GENERAL: NAD SKIN: Warm and dry. HEAD: Normocephalic. EYES: No scleral icterus. No injection or drainage. NECK: Supple, trachea midline. No JVD or lymphadenopathy. CARDIOVASCULAR: Regular rate and rhythm without murmurs, gallops, or rubs. RESPIRATORY: Breath sounds equal bilaterally. No accessory muscle use. GASTROINTESTINAL: Abdomen soft, non-tender, nondistended. MUSCULOSKELETAL: No cyanosis, or edema. Dressing over right foot wound BACK: Nontender without obvious deformity. No CVA tenderness. Results - Labs CBC & Chem 7: 12/01/17 19:40 12/05/17 07:11 Laboratory Results - last 24 hr 12/04/17 12/05/17 21:30 07:11 Creatinine 1.10 H Estimated GFR 50 L Vancomycin Trough 14.5 H Assessment and Plan - Assessment (1) Hematoma of right lower extremity Code(s): S80.11XA - Contusion of right lower leg, initial encounter Status: Acute (2) Cellulitis of right lower extremity Code(s): L03.115 - Cellulitis of right lower limb Status: Acute (3) Type 2 diabetes mellitus Code(s): E11.9 - Type 2 diabetes mellitus without complications Status: Chronic (4) Gastroesophageal reflux disease Code(s): K21.9 - Gastro-esophageal reflux disease without esophagitis Status: Chronic (5) Hypertension Code(s): I10 - Essential (primary) hypertension Status: Chronic (6) Anxiety Code(s): F41.9 - Anxiety disorder, unspecified Status: Chronic - Plan 62-year-old female with Right lower extremity cellulitis Currently on vancomycin and cefepime 1 more days, then switch to p.o. Keflex per ID from the case was discussed yesterday December 04, 2017 Right lower extremity hematoma Appreciate input from general surgery, continue with current conservative management Cirrhosis due to alcohol and fatty liver Appreciate input from gastroenterology, who signed off today Continue Xifaxan, Lasix and Aldactone Follow-up with Dr. Germain and scheduled outpatient with [facility] Diabetes type 2 Treated with oral hypoglycemic agents Patient has been refusing fingerstick blood glucose monitoring History of iron deficiency anemia Continue with ferrous sulfate Hypertension Normotensive on Lopressor GERD Stable (3) Type 2 diabetes mellitus Qualifiers: Diabetes mellitus terminal worker insulin use: without terminal worker use Diabetes mellitus complication status: without complication Qualified Code(s): E11.9 - Type 2 diabetes mellitus without complications (4) Gastroesophageal reflux disease Qualifiers: Esophagitis presence: without esophagitis Qualified Code(s): K21.9 - Gastro- esophageal reflux disease without esophagitis (5) Hypertension Qualifiers: Hypertension type: essential hypertension Qualified Code(s): I10 - Essential (primary) hypertension
--- NOTE | 2017-12-05 15:04 | P.PNGS ---
Subjective Patient reports: no new complaints ( DAILY PROGRESS NOTE FOR SURGICAL ATTENDING, DR. KG LAMA ), feels better Physical Exam Vital signs: Vital Signs 12/04/17 16:00 12/04/17 20:00 12/05/17 00:00 Temperature 98.0 F 98.2 F 98.2 F Pulse Rate 60 77 81 Respiratory Rate 18 18 18 Blood Pressure 138/63 118/53 L 132/62 Pulse Oximetry 96 98 95 12/05/17 04:00 12/05/17 08:00 12/05/17 12:00 Temperature 98.2 F 98.3 F 98.2 F Pulse Rate 75 65 69 Respiratory Rate 18 17 17 Blood Pressure 120/60 114/56 L 115/56 L Pulse Oximetry 96 99 97 Intake & Output 12/04/17 12/05/17 12/05/17 18:59 06:59 18:59 Intake Total 1196 / 1196 715 / 715 100 / 100 Output Total 1500 / 1500 Balance -304 / -304 715 / 715 100 / 100 Weight 102.7 kg Intake: IV 100 / 100 715 / 715 100 / 100 Zosyn 4.5 GM Premix 4.5 gm In 100 / 100 200 / 200 100 / 100 100 ml @ 200 mls/hr IV.SIG Q8H ANA MARIA Rx#:[id number] Vancomycin Inj 1,500 MG In NS 515 / 515 Inj 500 ML @ 250 mls/hr IV.SIG Q24H ANA MARIA Rx#:[id number] Oral 1096 / 1096 Output: Urine 1500 / 1500 Other: # Bowel Movements 1 Narrative: . Dressing removed Wound much less erythematous Just subcutaneous bruising small hematoma that is decompressing itself Assessment and Plan - Assessment (1) Hematoma of right lower extremity Code(s): S80.11XA - Contusion of right lower leg, initial encounter Status: Acute Plan: 62 year old female with RIGHT leg hematoma s/p fall -Will continue dressings and change PRN -Will continue to monitor -Continue antibiotics per ID -continue conservative treatment for now----area surrounding and edema improved from yesterday Possible discharge Friday or Friday per ID - Attending Attestation NOTE FOR SURGICAL ATTENDING, DR. KG LAMA I agree with above assessment and plan. The exam, history, and the medical decision-making described in the above note were completed with the assistance of the mid-level provider. I reviewed and agree with the findings presented. I attest that I had a [id number] encounter with the patient on the same day, and personally performed and documented my assessment and findings in the medical record. The following services were provided during this hospital visit: Chart data review, vital sign assessments/reviewing monitor data Review of consultations notes if present. Medication orders/review and/or management Ordering and/or reviewing lab tests Ordering and/or interpreting/reviewing x-rays and/or diagnostic studies Care of the patient and discussion of the patient with the care team Documentation time To help prompt me to consider important information that might be impacting today's encounter and assessment, Information from prior notes written by myself or my colleagues may have been "brought forward/copy and pasted" into today's note.
[2017-12-05] MEDS: Gabapentin 400 MG Capsule PO SCH (20:59)
[2017-12-05] MEDS: Vancomycin Inj 1,500 MG in Sodium Chlor 0.9% Inj 500 ML IV.SIG SCH (22:24)
[2017-12-06] MEDS: Piperacil/Tazo 4.5 GM Premix 4.5 GM/100 ML BAG IV.SIG SCH (03:53)
[2017-12-06] MEDS: Folic Acid 1 MG Tablet PO SCH (09:56)
[2017-12-06] MEDS: Furosemide 20 MG Tablet PO SCH (09:56)
[2017-12-06] MEDS: Metoprolol Tartrate 25 MG Tablet PO SCH (09:57)
[2017-12-06] MEDS: Ferrous Sulfate 325 MG Tablet PO SCH (09:57)
[2017-12-06] MEDS: Potassium Chloride 10 MEQ ER Capsule PO SCH (09:57)
[2017-12-06] MEDS: rifAXIMin 550 MG Tablet PO SCH (09:57)
--- NOTE | 2017-12-06 10:49 | P.PN ---
Subjective Interval history: Follow-up right lower extremity cellulitis/hematoma December 04, 2017-patient seen and examined, she reports some improvement of right lower extremity cellulitis however case was discussed with infectious disease specialist who states has been some slight worsening compared to yesterday evaluation. Patient states he has been up and using the bathroom to urinate. States she takes Lasix twice a week. She denies any abdominal pain, nausea or vomiting. December 05, 2017-patient seen and examined, complains of throbbing pain to right foot. Afebrile December 06, 2017-patient seen and examined, no acute event overnight still with some right lower extremity throbbing pain otherwise stable. Case was discussed yesterday with general surgery at bedside Physical Exam Vital signs: Vital Signs 12/05/17 12:00 12/05/17 16:00 12/05/17 20:00 Temperature 98.2 F 98.2 F 98.2 F Pulse Rate 69 68 71 Respiratory Rate 17 18 Blood Pressure 115/56 L 132/62 115/54 L Pulse Oximetry 97 97 98 12/06/17 00:00 12/06/17 04:00 Temperature 98.1 F 98.2 F Pulse Rate 70 72 Respiratory Rate 18 Blood Pressure 113/48 L 100/46 L Pulse Oximetry 99 100 Intake & Output 12/05/17 12/06/17 12/06/17 18:59 06:59 18:59 Intake Total 1060 / 1060 925 / 925 Balance 1060 / 1060 925 / 925 Weight 102.3 kg Intake: IV 100 / 100 805 / 805 Zosyn 4.5 GM Premix 4.5 gm In 100 / 100 230 / 230 100 ml @ 200 mls/hr IV.SIG Q8H ANA MARIA Rx#:[id number] Vancomycin Inj 1,500 MG In NS 575 / 575 Inj 500 ML @ 250 mls/hr IV.SIG Q24H ANA MARIA Rx#:[id number] Oral 960 / 960 120 / 120 Other: # Voids 3 # Urine Diapers 6 Date of Last Bowel Movement 12/05/17 12/05/17 # Bowel Movements 1 Narrative: GENERAL: NAD SKIN: Warm and dry. HEAD: Normocephalic. EYES: No scleral icterus. No injection or drainage. NECK: Supple, trachea midline. No JVD or lymphadenopathy. CARDIOVASCULAR: Regular rate and rhythm without murmurs, gallops, or rubs. RESPIRATORY: Breath sounds equal bilaterally. No accessory muscle use. GASTROINTESTINAL: Abdomen soft, non-tender, nondistended. MUSCULOSKELETAL: No cyanosis, or edema. dressing over right foot BACK: Nontender without obvious deformity. No CVA tenderness. Results - Labs CBC & Chem 7: 12/01/17 19:40 12/06/17 09:11 Laboratory Results - last 24 hr 12/06/17 09:11 Creatinine 1.28 H Estimated GFR 42 L Assessment and Plan - Assessment (1) Hematoma of right lower extremity Code(s): S80.11XA - Contusion of right lower leg, initial encounter Status: Acute (2) Cellulitis of right lower extremity Code(s): L03.115 - Cellulitis of right lower limb Status: Acute (3) Type 2 diabetes mellitus Code(s): E11.9 - Type 2 diabetes mellitus without complications Status: Chronic (4) Gastroesophageal reflux disease Code(s): K21.9 - Gastro-esophageal reflux disease without esophagitis Status: Chronic (5) Hypertension Code(s): I10 - Essential (primary) hypertension Status: Chronic (6) Anxiety Code(s): F41.9 - Anxiety disorder, unspecified Status: Chronic - Plan 62-year-old female with Right lower extremity cellulitis d/c vancomycin and Zosyn today and start p.o. 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 Germain and scheduled outpatient with [facility] Diabetes type 2 Treated with oral hypoglycemic agents Patient has been refusing fingerstick blood glucose monitoring History of iron deficiency anemia Continue with ferrous sulfate Hypertension Normotensive on Lopressor GERD Stable (3) Type 2 diabetes mellitus Qualifiers: Diabetes mellitus roasterman insulin use: without fci use Diabetes mellitus complication status: without complication Qualified Code(s): E11.9 - Type 2 diabetes mellitus without complications (4) Gastroesophageal reflux disease Qualifiers: Esophagitis presence: without esophagitis Qualified Code(s): K21.9 - Gastro- esophageal reflux disease without esophagitis (5) Hypertension Qualifiers: Hypertension type: essential hypertension Qualified Code(s): I10 - Essential (primary) hypertension
--- NOTE | 2017-12-06 10:57 | P.DS ---
Date of admission: 12/01/17 16:35 Primary care physician: UNKNOWN Anticipated date of discharge: 12/06/17 Brief History from admission: Patient states that she has had less discomfort in the right lower leg. She has received her first doses of IV antibiotics. Has been afebrile. Appetite good. Glucose levels under adequate control with current medication. DS: Diagnosis - Discharge Diagnosis (1) Hematoma of right lower extremity Status: Acute (2) Cellulitis of right lower extremity Status: Acute (3) Type 2 diabetes mellitus Status: Chronic (4) Gastroesophageal reflux disease Status: Chronic (5) Hypertension Status: Chronic (6) Anxiety Status: Chronic DS: Summary Hospital Course: Patient was admitted secondary to lower extremity cellulitis for which she was started on IV antibiotics including vancomycin and Zosyn with consultation to infectious disease specialist. Prior to discharge, she was switched to p.o. Keflex 500 mg 3 times daily 1 week. Due to right lower extremity hematoma, general surgery was consulted however patient was treated conservatively. She was continued on her treatment for other chronic medical conditions. DVT and GI prophylaxis were provided. Physical therapy was consulted. Vitals were monitored. All electrolyte abnormalities were corrected accordingly. Prior to discharge, patient conditions improve and she remained stable. She will be discharged home with home health care. - Time Spent with Patient Total time spent providing and/or coordinating discharge services: Greater than 30 minutes Exam Vital signs: Vital Signs 12/05/17 12:00 12/05/17 16:00 12/05/17 20:00 Temperature 98.2 F 98.2 F 98.2 F Pulse Rate 69 68 71 Respiratory Rate 17 17 18 Blood Pressure 115/56 L 132/62 115/54 L Pulse Oximetry 97 97 98 12/06/17 00:00 12/06/17 04:00 Temperature 98.1 F 98.2 F Pulse Rate 70 72 Respiratory Rate 18 18 Blood Pressure 113/48 L 100/46 L Pulse Oximetry 99 100 Intake & Output 12/05/17 12/06/17 12/06/17 18:59 06:59 18:59 Intake Total 1060 / 1060 925 / 925 Balance 1060 / 1060 925 / 925 Weight 102.3 kg Intake: IV 100 / 100 805 / 805 Zosyn 4.5 GM Premix 4.5 gm In 100 / 100 230 / 230 100 ml @ 200 mls/hr IV.SIG Q8H ANA MARIA Rx#:[id number] Vancomycin Inj 1,500 MG In NS 575 / 575 Inj 500 ML @ 250 mls/hr IV.SIG Q24H ANA MARIA Rx#:[id number] Oral 960 / 960 120 / 120 Other: # Voids 3 # Urine Diapers 6 Date of Last Bowel Movement 12/05/17 12/05/17 # Bowel Movements 1 Narrative: GENERAL: NAD SKIN: Warm and dry. HEAD: Normocephalic. EYES: No scleral icterus. No injection or drainage. NECK: Supple, trachea midline. No JVD or lymphadenopathy. CARDIOVASCULAR: Regular rate and rhythm without murmurs, gallops, or rubs. RESPIRATORY: Breath sounds equal bilaterally. No accessory muscle use. GASTROINTESTINAL: Abdomen soft, non-tender, nondistended. MUSCULOSKELETAL: No cyanosis, or edema. dressing over right lower extremity BACK: Nontender without obvious deformity. No CVA tenderness. Results Procedures completed during hospitalization: None Labs on day of discharge: Labs from last 24 hours 12/06/17 09:11 Creatinine 1.28 H Estimated GFR 42 L - Impressions ITS Impressions Lower Extremity MRI 12/02/17 00:00 CONCLUSION: Elongated fluid collection in the superficial soft tissues of the distal lower leg laterally with signal characteristics suggesting hematoma. Liver Ultrasound 12/03/17 00:00 CONCLUSION: 1. TIPS shunt appears to be patent. Hepatic and splenic vasculature also appears to be patent. 2. Diffuse hepatic fatty infiltration. 3. Gallbladder is decompressed. Cholelithiasis Discharge Plan - Discharge Disposition Patient Disposition: /Home Health Service - Discharge Condition Condition: Good - Discharge Order Discharge Orders: Discharge Order (Routine); Ordered 12/06/17 Ordered By: Frank Gale - Physicians Team Primary Care Provider: UNKNOWN, Attending Provider: Tate Loving Other Providers: Chauncey Chappell MD ; Juan Antonio Arce MD ; Collin Nj MD ; Boni King MD ; Frank Gale MD ; Infusion Resource - Rxs /Orders / Referrals /Forms Prescriptions: New cephalexin 500 mg Capsule 500 mg PO Q8HR Qty: 21 RF: 0 Continue ergocalciferol (vitamin D2) [Vitamin D2] 50,000 unit Capsule See Label Instructions .ROUTE .COMPLEX ferrous sulfate 325 mg (65 mg iron) Tablet 325 mg PO DAILY folic acid 1 mg Tablet 1 mg PO DAILY furosemide 20 mg tablet 1 tab PO DAILY gabapentin 400 mg capsule 1 cap PO HS linagliptin [Tradjenta] 5 mg Tablet 5 mg PO DAILY lorazepam 0.5 mg Tablet 0.5 mg PO Q8HR PRN (Reason: Anxiety) metoprolol tartrate 25 mg tablet 1 tab PO BID pantoprazole 40 mg tablet,delayed release (DR/EC) 1 tab PO DAILY potassium chloride 10 mEq Capsule, Extended Release 10 meq PO DAILY rifaximin [Xifaxan] 550 mg tablet 1 tab PO BID spironolactone 100 mg tablet 1 tab PO DAILY Discontinued ranitidine HCl 150 mg Tablet 150 mg PO BID Referrals: General Surgeon [Outside] - See Instructions Tate Loving MD [Family Provider] - See Instructions UNKNOWN, [Primary Care Provider] - See Instructions
[2017-12-06] MEDS ORDERED: Pharmacy Ordered Lab Info OTHER ONE (20:45)
== END 2017-12-06 13:22 | disposition home health service (06) ==
LOC: N04 16:35
PROVIDERS: ADMIT Family Medicine; ATTEND Family Medicine